=== PATIENT | male | born 1960 | race Caucasian/White ===

== ENCOUNTER 2020-11-05 18:48 | Emergency (ER) | payer OTHER ==
[2020-11-05] MEDS ORDERED: MORPHINE SULFATE 4 MG INJ IV ONE (19:15)
[2020-11-05] MEDS ORDERED: Sodium Chloride 0.9% 1000 ML 1,000 ML IV STA (19:15)
[2020-11-05] MEDS ORDERED: Zofran 4 MG/2 ML VIAL IV ONE (19:15)
[2020-11-05] MEDS ORDERED: Sodium Chloride 0.9% 1000 ML 1,000 ML ONE (19:19)
[2020-11-05] MEDS ORDERED: Zofran 4 MG/2 ML VIAL ONE (19:19)
[2020-11-05] MEDS ORDERED: MORPHINE SULFATE 4 MG INJ ONE (19:19)
--- NOTE | 2020-11-05 19:33 | ERPHSYRPT ---
- History of Present Illness Time Seen by Provider: 11/05/20 19:14 Historian: patient Exam Limitations: no limitations Patient Subjective Stated Complaint: RLQ pain, groin pain Triage Nursing Assessment: pt to ED c/o RLQ pain and R groin pain 06/15. hx hernia sx on 11/02/20. pain persistant since sx and worsening toda. rates 07/15 with coughing fits "heat wave, hot flash during my fits." states he has not had a BM since sx. urinating without issues. denies emesis but occasional nausea with attemping to have BM. surgeon was Dr. Subramanian who is aware he is in ED. pain is most on lateral side of incision. no bleeding or drainage noted. Physician History: 60 years old male with history of tobacco abuse, GERD status post right inguinal hernia repair with mesh postoperative day 2 presented in the ER with gradually worsening pain right inguinal hernia repair site/right lower quadrant. Patient report he has been taking pain medication which seem to be helping earlier but since this afternoon he is having constant severe sharp pain which is aggravated with coughing, deep breathing, movements, associated with nausea but no vomiting. Denies having diarrhea but does not have any bowel movement since hernia repair. No difficulty urination. Denies fever chills or shortness of breath. Patient called her primary surgeon and was recommended to be evaluated in the ER. Denies any drainage or swelling locally. Timing/Duration: day(s) (2), gradual onset, worse Activities at Onset: rest Quality: sharpness Abdominal Pain Onset Location: RLQ, other (Right inguinal area) Pain Radiation: no radiation Severity of Pain-Max: severe Severity of Pain-Current: severe Modifying Factors: Worsens With: coughing, movement, walking Associated Symptoms: nausea, No chest pain, No diaphoresis, No testicular pain, No vomiting Previous symptoms: no prior history Allergies/Adverse Reactions: No Known Drug Allergies Allergy (Unverified 11/05/20 19:01) Home Medications: Atorvastatin Calcium [Lipitor] 20 mg PO DAILY 11/05/20 [History] Bupropion HCl 150 mg Sr [Wellbutrin SR 150 MG] 150 mg PO DAILY 11/05/20 [History] Folic Acid 0.4 mg PO DAILY 11/05/20 [History] Gabapentin 300 mg PO DAILY 11/05/20 [History] Loratadine 10 mg [Claritin 10 mg] 10 mg PO DAILY 11/05/20 [History] Omeprazole Magnesium [Prilosec] 10 mg PO DAILY 11/05/20 [History] Sertraline HCl 50 mg [Zoloft 50 mg Tablet] 50 mg PO DAILY 11/05/20 [History] Tamsulosin HCl 0.4 mg [Flomax 0.4 MG] 0.4 mg PO DAILY 11/05/20 [History] Varenicline Tartrate [Chantix] 1 mg PO DAILY 11/05/20 [History] Hx Tetanus, Diphtheria Vaccination/Date Given: Yes Hx Influenza Vaccination/Date Given: Yes Hx Pneumococcal Vaccination/Date Given: Yes Immunizations Up to Date: Yes Travel Risk - International Travel Have you traveled outside of the country in past 3 weeks: No - Coronavirus Screening Are you exhibiting any of the following symptoms?: No Close contact with a COVID-19 positive Pt in past 14-21 Days: No - Review of Systems Constitutional: No Symptoms Eyes: No Symptoms Ears, Nose, & Throat: Sinus Drainage Respiratory: Cough Cardiac: No Symptoms Abdominal/Gastrointestinal: Abdominal Pain, Nausea, Constipation Genitourinary Symptoms: No Symptoms Musculoskeletal: No Symptoms Skin: No Symptoms Neurological: No Symptoms Psychological: No Symptoms Endocrine: No Symptoms Hematologic/Lymphatic: No Symptoms Immunological/Allergic: No Symptoms - Past Medical History Pertinent Past Medical History: Yes Neurological History: Other Cardiac History: High Cholesterol, Hypertension Respiratory History: No Pertinent History Endocrine Medical History: No Pertinent History Musculoskeletal History: Degenerative Disk Disease Other Medical History: Cluster Headaches, Fx Left Wrist, Hx of surgery for nasal defect, hx ear surgery, 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, - Social History Smoking Status: Current every day smoker How long have you smoked: years Exposure to second hand smoke: No Drug Use: none Patient Lives Alone: No - Nursing Vital Signs Nursing Vital Signs: Initial Vital Signs Temperature 98.5 F 11/05/20 18:53 Pulse Rate 79 11/05/20 18:53 Respiratory Rate 19 11/05/20 18:53 Blood Pressure 170/97 11/05/20 18:53 O2 Sat by Pulse Oximetry 96 11/05/20 18:53 Pain Scale Pain Intensity 1 - Physical Exam General Appearance: no apparent distress, alert Eye Exam: PERRL/EOMI, eyes nml inspection Ears, Nose, Throat Exam: pharyngeal erythema Neck Exam: normal inspection, non-tender, supple, full range of motion Respiratory Exam: normal breath sounds, lungs clear Cardiovascular Exam: regular rate/rhythm, normal heart sounds Gastrointestinal/Abdomen Exam: soft, normal bowel sounds, tenderness (Right lower quadrant/right inguinal area. Incision clean dry and intact. No erythema swelling redness or discharge around incision site. No testicular swelling.) Male Genitalia Exam: No testicular tenderness Back Exam: normal inspection, normal range of motion Extremity Exam: normal inspection, normal range of motion Neurologic Exam: alert, oriented x 3, cooperative Skin Exam: normal color SpO2 Interpretation: normal SpO2: 96 O2 Delivery: Room Air Ordered Tests: Active Orders 24 hr Category Date Time Status IV Insertion STAT Care 11/05/20 19:04 Active NPO (ED) STAT Care 11/05/20 19:15 Active ABDOMEN AND PELVIS W CONTRAST [CT] Stat Exams 11/05/20 19:16 Taken CBC W DIFF Stat Lab 11/05/20 19:15 Completed CMP Stat Lab 11/05/20 19:15 Completed CULTURE,URINE Stat Lab 11/05/20 20:41 Received Lactic Acid Stat Lab 11/05/20 19:20 Completed UA W/RFX UR CULTURE Stat Lab 11/05/20 20:41 Completed Medication Summary Generic Name Dose Route Start Last Admin Trade Name Freq PRN Reason Stop Dose Admin Cephalexin HCl 500 mg 11/05/20 20:57 Keflex 500 Mg PO 11/05/20 20:58 STAT ONE Discontinued Medications Generic Name Dose Route Start Last Admin Trade Name Freq PRN Reason Stop Dose Admin Sodium Chloride 1,000 mls @ 999 mls/hr 11/05/20 19:15 11/05/20 19:22 Sodium Chloride 0.9% 1000 Ml IV 11/05/20 20:15 999 mls/hr .Q1H1M STA Administration Sodium Chloride Confirm 11/05/20 19:19 Sodium Chloride 0.9% 1000 Ml Administered 11/05/20 19:20 Dose 1,000 mls @ ud .ROUTE .STK-MED ONE Morphine Sulfate 4 mg 11/05/20 19:15 11/05/20 19:23 Morphine Sulfate 4 Mg Inj IV 11/05/20 19:16 4 mg STAT ONE Administration Morphine Sulfate Confirm 11/05/20 19:19 Morphine Sulfate 4 Mg Inj Administered 11/05/20 19:20 Dose 4 mg .ROUTE .STK-MED ONE Ondansetron HCl 4 mg 11/05/20 19:15 11/05/20 19:22 Zofran 4 Mg/2 Ml Vial IV 11/05/20 19:16 4 mg STAT ONE Administration Ondansetron HCl Confirm 11/05/20 19:19 Zofran 4 Mg/2 Ml Vial Administered 11/05/20 19:20 Dose 4 mg .ROUTE .STK-MED ONE Lab/Rad Data: Laboratory Result Diagrams 11/05/20 19:15 11/05/20 19:15 Laboratory Results 11/05/20 11/05/20 11/05/20 Range/Units 20:41 19:20 19:15 WBC (4.0-10.5) K/mm3 RBC (4.1-5.6) M/mm3 Hgb (12.5-18.0) gm/dl Hct (42-50) % MCV (78-100) fl MCH (26-32) pg MCHC (32-36) g/dl RDW (11.5-14.0) % Plt Count (150-450) K/mm3 MPV (7.5-11.0) fl Gran % (36.0-66.0) % Eos # (Auto) (0-0.5) Absolute Lymphs (auto) (1.0-4.6) Absolute Monos (auto) (0.0-1.3) Lymphocytes % (24.0-44.0) % Monocytes % (0.0-12.0) % Eosinophils % (0.00-5.0) % Basophils % (0.0-0.4) % Absolute Granulocytes (1.4-6.9) Basophils # (0-0.4) Sodium 133 L (137-145) mmol/L Potassium 4.0 (3.5-5.1) mmol/L Chloride 98 (98-107) mmol/L Carbon Dioxide 25 (22-30) mmol/L Anion Gap 13.8 (5-15) MEQ/L BUN 14 (9-20) mg/dL Creatinine 0.97 (0.66-1.25) mg/dL Estimated GFR > 60.0 ML/MIN Glucose 114 H (74-106) mg/dL Lactic Acid 1.1 (0.4-2.0) Calcium 9.7 (8.4-10.2) mg/dL Total Bilirubin 0.70 (0.2-1.3) mg/dL AST 33 (17-59) U/L ALT 36 (0-50) U/L Alkaline Phosphatase 166 H (38-126) U/L Serum Total Protein 8.0 (6.3-8.2) g/dL Albumin 4.6 (3.5-5.0) g/dL Urine Color YELLOW (YELLOW) Urine Appearance SLIGHTLY CLOUDY (CLEAR) Urine pH 6.0 (5-6) Ur Specific [place] 1.020 (1.005-1.025) Urine Protein NEGATIVE (Negative) Urine Ketones NEGATIVE (NEGATIVE) Urine Blood SMALL (0-5) Ld/ul Urine Nitrite POSITIVE (NEGATIVE) Urine Bilirubin NEGATIVE (NEGATIVE) Urine Urobilinogen NEGATIVE (0-1) mg/dL Ur Leukocyte Esterase NEGATIVE (NEGATIVE) Urine WBC (Auto) 0-2 (0-5) /HPF Urine RBC (Auto) 0-2 (0-2) /HPF U Epithel Cells (Auto) NONE (FEW) /HPF Urine Bacteria (Auto) NONE (NEGATIVE) /HPF Urine Mucus (Auto) SLIGHT (NEGATIVE) /HPF Urine Culture Reflexed YES (NO) Urine Glucose NEGATIVE (NEGATIVE) mg/dL 11/05/20 Range/Units 19:15 WBC 10.9 H (4.0-10.5) K/mm3 RBC 5.05 (4.1-5.6) M/mm3 Hgb 15.7 (12.5-18.0) gm/dl Hct 47.6 (42-50) % MCV 94.3 (78-100) fl MCH 31.1 (26-32) pg MCHC 33.0 (32-36) g/dl RDW 15.3 H (11.5-14.0) % Plt Count 196 (150-450) K/mm3 MPV 11.0 (7.5-11.0) fl Gran % 80.0 H (36.0-66.0) % Eos # (Auto) 0.12 (0-0.5) Absolute Lymphs (auto) 1.19 (1.0-4.6) Absolute Monos (auto) 0.85 (0.0-1.3) Lymphocytes % 10.9 L (24.0-44.0) % Monocytes % 7.8 (0.0-12.0) % Eosinophils % 1.1 (0.00-5.0) % Basophils % 0.2 (0.0-0.4) % Absolute Granulocytes 8.69 H (1.4-6.9) Basophils # 0.02 (0-0.4) Sodium (137-145) mmol/L Potassium (3.5-5.1) mmol/L Chloride (98-107) mmol/L Carbon Dioxide (22-30) mmol/L Anion Gap (5-15) MEQ/L BUN (9-20) mg/dL Creatinine (0.66-1.25) mg/dL Estimated GFR ML/MIN Glucose (74-106) mg/dL Lactic Acid (0.4-2.0) Calcium (8.4-10.2) mg/dL Total Bilirubin (0.2-1.3) mg/dL AST (17-59) U/L ALT (0-50) U/L Alkaline Phosphatase (38-126) U/L Serum Total Protein (6.3-8.2) g/dL Albumin (3.5-5.0) g/dL Urine Color (YELLOW) Urine Appearance (CLEAR) Urine pH (5-6) Ur Specific [place] (1.005-1.025) Urine Protein (Negative) Urine Ketones (NEGATIVE) Urine Blood (0-5) Ld/ul Urine Nitrite (NEGATIVE) Urine Bilirubin (NEGATIVE) Urine Urobilinogen (0-1) mg/dL Ur Leukocyte Esterase (NEGATIVE) Urine WBC (Auto) (0-5) /HPF Urine RBC (Auto) (0-2) /HPF U Epithel Cells (Auto) (FEW) /HPF Urine Bacteria (Auto) (NEGATIVE) /HPF Urine Mucus (Auto) (NEGATIVE) /HPF Urine Culture Reflexed (NO) Urine Glucose (NEGATIVE) mg/dL - Progress Progress: improved, re-examined Progress Note: 11/05/20 20:51 60 years old status post right inguinal hernia repair with mesh postop day 2 is evaluated for worsening pain. Is given IV fluids and pain medication, on reevaluation his pain is better. Patient has good bowel sounds in all 4 quadrants. Patient is passing gas. Acute abdomen work-up shows white count of 10, grossly unremarkable chemistries. I have obtained CT abdomen pelvis with contrast which showed findings consistent with adynamic ileus but no obstruction perforation or any other acute intra-abdominal findings. Patient is taking pain medication which could be the reason for this ileus versus postoperative. He is advised to take pain medications only as needed and take Colace and MiraLAX regularly. Urinalysis does show positive nitrites although patient does not have any symptoms but him being recent postoperative I will start him on Keflex recommended deep breathing exercises to avoid atelectasis related to recent anesthesia. On repeated evaluation abdominal exam is soft nontender with no peritoneal signs. No signs of infection at incision site. Recommended symptomatic treatment for cough and outpatient follow-up with primary care and general surgeon. Discussed signs symptoms of worsening needing return to ER which he seems understanding. 11/05/20 21:00 Counseled pt/family regarding: lab results, diagnosis, need for follow-up, rad results, smoking cessation - Departure Departure Disposition: Home Clinical Impression: Postoperative abdominal pain UTI (urinary tract infection) Qualifiers: Urinary tract infection type: site unspecified Hematuria presence: without hematuria Qualified Code(s): N39.0 - Urinary tract infection, site not specified Condition: Stable Critical Care Time: No Referrals: EDE LOPEZ [ACTIVE STAFF] - (1-2 days for reevaluation) DONY SUBRAMANIAN [ACTIVE STAFF] - (1-2 days for reevaluation) Instructions: Acute Abdomen (Belly Pain), Adult (DC) Additional Instructions: Take pain medications only as needed. Drink plenty of fluids. Take MiraLAX and Colace regularly. Return to ER for worsening abdominal pain/distention/fever chills/swelling redness discharge from incision site etc. Follow-up with primary care and general surgeon for reevaluation early next week. Prescriptions: Cephalexin Mh 500 mg [Keflex 500 mg] 500 mg PO TID #21 capsule
[2020-11-05 19:41] LABS: ALBUMIN 4.6 g/dL (3.5-5.0); ALKALINE PHOSPHATASE 166 U/L (38-126); ANION GAP 13.8 MEQ/L (5-15); BLOOD UREA NITROGEN 14 mg/dL (9-20); CHLORIDE 98 mmol/L (98-107); Calcium 9.7 mg/dL (8.4-10.2); Carbon Dioxide 25 mmol/L (22-30); Creatinine 1 0.97 mg/dL (0.66-1.25); EST GLOMERULAR FILTRATION RATE > 60.0 ML/MIN; Glucose 114 mg/dL (74-106); SGOT/AST 33 U/L (17-59); SGPT/ALT 36 U/L (0-50); SODIUM 133 mmol/L (137-145)
[2020-11-05 19:42] LABS: Absolute Neutrophil Ct (ANC) 8.69 (1.4-6.9); BASOPHIL % 0.2 % (0.0-0.4); Basophil (Absolute #) 0.02 (0-0.4); Eosinophil % 1.1 % (0.00-5.0); Eosinophil (Absolute #) 0.12 (0-0.5); Hematocrit 47.6 % (42-50); Hemoglobin 15.7 gm/dl (12.5-18.0); Lymphocyte (Absolute #) 1.19 (1.0-4.6); Lymphocytes % 10.9 % (24.0-44.0); Mean Cell Volume 94.3 fl (78-100); Mean Corpuscular Hemoglobin 31.1 pg (26-32); Monocyte (Absolute #) 0.85 (0.0-1.3); Monocytes % 7.8 % (0.0-12.0); Platelet Count 196 K/mm3 (150-450); Red Blood Count 5.05 M/mm3 (4.1-5.6); Red Cell Distribution Width 15.3 % (11.5-14.0); White Blood Count 10.9 K/mm3 (4.0-10.5)
[2020-11-05 20:49] LABS: Appearance SLIGHTLY CLOUDY (CLEAR); Bilirubin NEGATIVE (NEGATIVE); Blood SMALL Ery/ul (0-5); Glucose NEGATIVE (NEGATIVE); Ketones NEGATIVE (NEGATIVE); Leukocyte Esterase NEGATIVE (NEGATIVE); Mucus SLIGHT /HPF (NEGATIVE); Nitrite POSITIVE (NEGATIVE); Protein,Urine Dip NEGATIVE (Negative); RBC 0-2 /HPF (0-2); Urobilinogen NEGATIVE mg/dL (0-1); WBC 0-2 /HPF (0-5)
[2020-11-05 20:55] VITALS: O2SAT 96
[2020-11-05] MEDS ORDERED: KEFLEX 500 MG PO ONE (20:57)
[2020-11-05] MEDS ORDERED: KEFLEX 500 MG ONE (21:03)
[2020-11-05 21:10] VITALS: BP 145/80; PULSE 75
--- NOTE | 2020-11-06 08:51 | XRAY ---
Indication: Right lower quadrant pain. Constipation. Status post hernia surgery earlier in the week. Partial left nephrectomy. Multiple contiguous axial images obtained through the abdomen and pelvis using 80 cc Isovue 370 contrast. Comparison: None Lung bases demonstrates minimal dependent atelectasis, lingula subsegmental atelectasis/scarring, and tiny left base calcified granuloma. Heart is not enlarged. Noncontrasted stomach and bowel loops appear nonobstructed. Normal air-filled appendix. Moderate air distended colon throughout with scattered colonic fecal debris possibly postoperative ileus. There is also mild rectal impaction. No free fluid/air. Left mid kidney demonstrates partial nephrectomy and nonobstructing micro-calculus. Remaining liver, gallbladder, pancreas, spleen, adrenal glands, kidneys, ureters, and bladder appear unremarkable. Minimal aortoiliac calcifications. No AAA or pathologic retroperitoneal lymphadenopathy. Osseous structures intact with mild degenerative changes throughout the thoracolumbar spine. Right inguinal area demonstrates postsurgical changes with a few tiny abdominal wall air bubbles. No focal walled off fluid collection/abscess. Impression: 1. Moderate air distended colon with scattered colonic fecal debris possibly postoperative ileus. Also mild rectal impaction. 2. Incidental partial left nephrectomy with nonobstructing micro-calculus and status post right inguinal hernia postoperative changes. Comment: Preliminary interpretation was made by [facility]. No critical discrepancy.
== END 2020-11-05 21:20 | disposition home or self-care (01) ==
LOC: ED 18:48
DX: R10.31 Right lower quadrant pain (principal); R10.30 Lower abdominal pain, unspecified; R05 Cough; R11.0 Nausea; N39.0 Urinary tract infection, site not specified; K59.00 Constipation, unspecified; G89.18 Other acute postprocedural pain; E78.5 Hyperlipidemia, unspecified; I10 Essential (primary) hypertension; Z79.899 Other long term (current) drug therapy; F17.200 Nicotine dependence, unspecified, uncomplicated
CPT/HCPCS: 36000; 36415; 74177; 80053; 81001; 83605; 85025; 87077; 87086; 87186; 96360; 96374; 96375; 99284; J2270; J2405; L0625; A9270-GY

== ENCOUNTER 2023-03-15 09:20 | Emergency (ER) | payer OTHER ==
[2023-03-15 10:42] VITALS: O2SAT 98
[2023-03-15 10:47] LABS: Absolute Neutrophil Ct (ANC) 3.63 x10^3/uL (1.4-6.9); BASOPHIL % 0.8 % (0.0-0.4); Basophil (Absolute #) 0.04 x10^3/uL (0-0.4); Eosinophil % 1.9 % (0.00-5.0); Hematocrit 42.4 % (42-50); Hemoglobin 14.1 g/dL (12.5-18.0); IMMATURE GRAN # 0.01 x10^3u/L (0.00-0.03); IMMATURE GRAN % 0.2 % (0.00-0.4); Lymphocytes % 20.7 % (24.0-44.0); Mean Cell Volume 96.4 fL (78-100); Mean Corpuscular Hgb Concent. 33.3 g/dL (32-36); Mean Platelet Volume 10.8 fL (7.5-11.0); Monocyte (Absolute #) 0.43 x10^3/uL (0.0-1.3); Monocytes % 8.1 % (0.0-12.0); Neutrophil % 68.3 % (36.0-66.0); Platelet Count 137 x10^3/uL (150-450); Red Cell Distribution Width 13.9 % (11.5-14.0); White Blood Count 5.3 x10^3/uL (4.0-10.5)
[2023-03-15 10:55] LABS: Appearance Clear (Clear); Bacteria None Seen /HPF (None Seen); Bilirubin Negative (Negative); Blood Negative (Negative); Epithelial Cells None Seen /HPF (None Seen); Glucose, Urine Negative (Negative); Hyaline Casts NONE SEEN /LPF (0-2); Ketones Negative (Negative); Leukocyte Esterase Negative (Negative); Nitrite Negative (Negative); Ph 6.5 (4.6-8.0); Protein,Urine Dip Negative (Negative); RBC 0-2 /HPF (0-5); Specific Gravity <=1.005 (1.005-1.030); Urobilinogen 0.2 mg/dL (0.2); WBC 0-2 /HPF (0-5)
[2023-03-15 10:57] LABS: ADD URINE CULTURE? NO (NO)
[2023-03-15 11:21] LABS: ALBUMIN 4.4 g/dL (3.5-5.0); ALKALINE PHOSPHATASE 112 U/L (38-126); ANION GAP 12.6 MEQ/L (5-15); BLOOD UREA NITROGEN 11 mg/dL (9-20); CHLORIDE 103 mmol/L (98-107); Calcium 8.6 mg/dL (8.4-10.2); Carbon Dioxide 29 mmol/L (22-30); Creatinine 1 0.83 mg/dL (0.66-1.25); EST GLOMERULAR FILTRATION RATE > 60.0 ML/MIN; Glucose 92 mg/dL (74-106); MAGNESIUM 2.1 mg/dL (1.6-2.3); NT PRO BNPII 156 pg/mL (<300); Potassium 3.7 mmol/L (3.5-5.1); SGOT/AST 27 U/L (17-59); SGPT/ALT 23 U/L (0-50); SODIUM 141 mmol/L (137-145); Total Protein 7.4 g/dL (6.3-8.2)
--- NOTE | 2023-03-15 13:11 | ERPHSYRPT ---
- History of Present Illness Time Seen by Provider: 03/15/23 10:17 Source: patient Exam Limitations: no limitations Patient Subjective Stated Complaint: hypertension, blood pressure was running in the neighborhood of 120/80 a couple of weeks ago and pt stated that it started slowly creeping up and it's 198/93 today Triage Nursing Assessment: Pt broguht self to the ER, hypertensive, denies pain at this time, pulses normal, walked to the room without assistance, no difficulty breathing, skin n/w/d, doesn't apper to be in any distress Physician History: 62 years old male with history of tobacco abuse, hyperlipidemia, GERD, BPH, partial left nephrectomy presented in the ER with chief complaint of elevated blood pressure. Patient reports usually his blood pressure is around 120/80 but for the last couple of weeks he noticed it is gradually creeping up and was 190s prior to arrival. Patient denies any increased salt intake, lifestyle changes, chest pain palpitations, shortness of breath, headache, dizziness/li ghtheadedness/visual disturbance/numbness tingling or focal weakness. Timing/Duration: week(s) (2), gradual onset, worse Severity: moderate Modifying Factors: Improves With: nothing Associated Symptoms: denies symptoms Allergies/Adverse Reactions: No Known Drug Allergies Allergy (Verified 03/15/23 09:48) Home Medications: Atorvastatin Calcium [Lipitor] 40 mg PO DAILY 11/05/20 [History] Folic Acid 1 mg PO DAILY 11/05/20 [History] Gabapentin 200 mg PO TID 11/05/20 [History] Omeprazole Magnesium [Prilosec] 20 mg PO DAILY 11/05/20 [History] Tamsulosin HCl 0.4 mg [Flomax 0.4 MG] 0.4 mg PO DAILY 11/05/20 [History] Calcium Polycarbophil 625 mg [Fibercon 625 mg] 625 mg PO DAILY 03/15/23 [History] Fexofenadine HCl [Sherri Allergy] 180 mg PO DAILY 03/15/23 [History] Lidocaine 1 each TP UD 03/15/23 [History] Loperamide HCl 2 mg [Imodium 2 mg] 2 mg PO DAILY PRN 03/15/23 [History] Meloxicam 15 mg [Meloxicam 15 MG] 15 mg PO DAILY 03/15/23 [History] Methotrexate Sodium 2.5 mg [Trexall 2.5 mg] 15 mg PO WEEKLY 03/15/23 [History] Hx Tetanus, Diphtheria Vaccination/Date Given: Yes Hx Influenza Vaccination/Date Given: Yes Hx Pneumococcal Vaccination/Date Given: Yes Travel Risk - International Travel Have you traveled outside of the country in past 3 weeks: No - Coronavirus Screening Are you exhibiting any of the following symptoms?: No Close contact with a COVID-19 positive Pt in past 14-21 Days: No - Vaccine Status Have you recieved a Covid-19 vaccination: Yes De Icer: Moderna - Vaccination Dates Date of 2cond Vaccination (if applicable): 2020 - Review of Systems Constitutional: No Symptoms Eyes: No Symptoms Ears, Nose, & Throat: No Symptoms Respiratory: No Symptoms Cardiac: No Symptoms Abdominal/Gastrointestinal: No Symptoms Genitourinary Symptoms: No Symptoms Musculoskeletal: No Symptoms Neurological: No Symptoms Psychological: No Symptoms Endocrine: No Symptoms Hematologic/Lymphatic: No Symptoms Immunological/Allergic: No Symptoms - Past Medical History Pertinent Past Medical History: Yes Neurological History: Other Cardiac History: High Cholesterol, Hypertension Respiratory History: No Pertinent History Endocrine Medical History: No Pertinent History Musculoskeletal History: Degenerative Disk Disease Other Medical History: Cluster Headaches, Fx Left Wrist, Hx of surgery for nasal defect, hx ear surgery, 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, - Social History Smoking Status: Current every day smoker How long have you smoked: years Exposure to second hand smoke: Yes Drug Use: none Patient Lives Alone: No - Nursing Vital Signs Nursing Vital Signs: Initial Vital Signs Pulse Rate 47 L 03/15/23 10:00 Respiratory Rate 17 03/15/23 10:00 Blood Pressure 183/85 03/15/23 10:00 O2 Sat by Pulse Oximetry 98 03/15/23 10:00 Pain Scale Pain Intensity 0 - Physical Exam General Appearance: no apparent distress, alert, anxiety Eye Exam: PERRL/EOMI, eyes nml inspection Ears, Nose, Throat Exam: normal ENT inspection, TMs normal, pharynx normal, moist mucous membranes Neck Exam: normal inspection, non-tender, supple, full range of motion Respiratory Exam: normal breath sounds, lungs clear Cardiovascular Exam: normal heart sounds, bradycardia Back Exam: normal inspection, normal range of motion Neurologic Exam: alert, oriented x 3, cooperative, job developer for deaf adults II-XII nml as tested, normal mood/affect, nml cerebellar function, nml station & gait, sensation nml, No motor deficits Skin Exam: normal color SpO2 Interpretation: normal SpO2: 98 O2 Delivery: Room Air - Course EKG Interpreted by Me: RATE ([id number]), Sinus Milo, NORMAL AXIS, NORMAL INTERVALS, NORMAL QRS Ordered Tests: Active Orders 24 hr Category Date Time Status EKG-ER Only STAT Care 03/15/23 10:27 Active IV Insertion STAT Care 03/15/23 10:27 Active CHEST 1 VIEW (PORTABLE) Stat Exams 03/15/23 10:27 Taken CBC W DIFF Stat Lab 03/15/23 10:40 Completed CMP Stat Lab 03/15/23 10:40 Completed MAG [MAGNESIUM] Stat Lab 03/15/23 10:40 Completed NT PRO BNPII Stat Lab 03/15/23 10:40 Completed TROPONIN Q4H Lab 03/15/23 10:40 Completed TROPONIN Q4H Lab 03/15/23 14:30 Ordered TROPONIN Q4H Lab 03/15/23 18:30 Ordered UA W/RFX UR CULTURE Stat Lab 03/15/23 10:41 Completed Lab/Rad Data: Laboratory Result Diagrams 03/15/23 10:40 03/15/23 10:40 Laboratory Results 03/15/23 03/15/23 03/15/23 Range/Units 10:41 10:40 10:40 WBC (4.0-10.5) x10^3/uL RBC (4.1-5.6) x10^6/uL Hgb (12.5-18.0) g/dL Hct (42-50) % MCV (78-100) fL MCH (26-32) pg MCHC (32-36) g/dL RDW (11.5-14.0) % Plt Count (150-450) x10^3/uL MPV (7.5-11.0) fL Gran % (36.0-66.0) % Immature Gran % (Auto) (0.00-0.4) % Nucleat RBC Rel Count (0.00-0.1) % Eos # (Auto) (0-0.5) x10^3/uL Immature Gran # (Auto) (0.00-0.03) x10^3u/L Absolute Lymphs (auto) (1.0-4.6) x10^3/uL Absolute Monos (auto) (0.0-1.3) x10^3/uL Absolute Nucleated RBC (0.00-0.01) x10^3u/L Lymphocytes % (24.0-44.0) % Monocytes % (0.0-12.0) % Eosinophils % (0.00-5.0) % Basophils % (0.0-0.4) % Absolute Granulocytes (1.4-6.9) x10^3/uL Basophils # (0-0.4) x10^3/uL Sodium 141 (137-145) mmol/L Potassium 3.7 (3.5-5.1) mmol/L Chloride 103 (98-107) mmol/L Carbon Dioxide 29 (22-30) mmol/L Anion Gap 12.6 (5-15) MEQ/L BUN 11 (9-20) mg/dL Creatinine 0.83 (0.66-1.25) mg/dL Estimated GFR > 60.0 ML/MIN Glucose 92 (74-106) mg/dL Calcium 8.6 (8.4-10.2) mg/dL Magnesium 2.1 (1.6-2.3) mg/dL Total Bilirubin 0.60 (0.2-1.3) mg/dL AST 27 (17-59) U/L ALT 23 (0-50) U/L Alkaline Phosphatase 112 (38-126) U/L Troponin I < 0.012 (0.000-0.034) ng/mL NT-Pro-B Natriuret Pep 156 (<300) pg/mL Serum Total Protein 7.4 (6.3-8.2) g/dL Albumin 4.4 (3.5-5.0) g/dL Urine Color Yellow (Yellow) Urine Appearance Clear (Clear) Urine pH 6.5 (4.6-8.0) Ur Specific Kirby <=1.005 (1.005-1.030) Urine Protein Negative (Negative) Urine Glucose (UA) Negative (Negative) mg/dL Urine Ketones Negative (Negative) Urine Blood Negative (Negative) Urine Nitrite Negative (Negative) Urine Bilirubin Negative (Negative) Urine Urobilinogen 0.2 (0.2) mg/dL Ur Leukocyte Esterase Negative (Negative) U Hyaline Cast (Auto) NONE SEEN (0-2) /LPF Urine Microscopic RBC 0-2 (0-5) /HPF Urine Microscopic WBC 0-2 (0-5) /HPF Ur Epithelial Cells None Seen (None Seen) /HPF Urine Bacteria None Seen (None Seen) /HPF Urine Culture Reflexed NO (NO) 03/15/23 Range/Units 10:40 WBC 5.3 (4.0-10.5) x10^3/uL RBC 4.40 (4.1-5.6) x10^6/uL Hgb 14.1 (12.5-18.0) g/dL Hct 42.4 (42-50) % MCV 96.4 (78-100) fL MCH 32.0 (26-32) pg MCHC 33.3 (32-36) g/dL RDW 13.9 (11.5-14.0) % Plt Count 137 L (150-450) x10^3/uL MPV 10.8 (7.5-11.0) fL Gran % 68.3 H (36.0-66.0) % Immature Gran % (Auto) 0.2 (0.00-0.4) % Nucleat RBC Rel Count 0.0 (0.00-0.1) % Eos # (Auto) 0.10 (0-0.5) x10^3/uL Immature Gran # (Auto) 0.01 (0.00-0.03) x10^3u/L Absolute Lymphs (auto) 1.10 (1.0-4.6) x10^3/uL Absolute Monos (auto) 0.43 (0.0-1.3) x10^3/uL Absolute Nucleated RBC 0.00 (0.00-0.01) x10^3u/L Lymphocytes % 20.7 L (24.0-44.0) % Monocytes % 8.1 (0.0-12.0) % Eosinophils % 1.9 (0.00-5.0) % Basophils % 0.8 (0.0-0.4) % Absolute Granulocytes 3.63 (1.4-6.9) x10^3/uL Basophils # 0.04 (0-0.4) x10^3/uL Sodium (137-145) mmol/L Potassium (3.5-5.1) mmol/L Chloride (98-107) mmol/L Carbon Dioxide (22-30) mmol/L Anion Gap (5-15) MEQ/L BUN (9-20) mg/dL Creatinine (0.66-1.25) mg/dL Estimated GFR ML/MIN Glucose (74-106) mg/dL Calcium (8.4-10.2) mg/dL Magnesium (1.6-2.3) mg/dL Total Bilirubin (0.2-1.3) mg/dL AST (17-59) U/L ALT (0-50) U/L Alkaline Phosphatase (38-126) U/L Troponin I (0.000-0.034) ng/mL NT-Pro-B Natriuret Pep (<300) pg/mL Serum Total Protein (6.3-8.2) g/dL Albumin (3.5-5.0) g/dL Urine Color (Yellow) Urine Appearance (Clear) Urine pH (4.6-8.0) Ur Specific Kirby (1.005-1.030) Urine Protein (Negative) Urine Glucose (UA) (Negative) mg/dL Urine Ketones (Negative) Urine Blood (Negative) Urine Nitrite (Negative) Urine Bilirubin (Negative) Urine Urobilinogen (0.2) mg/dL Ur Leukocyte Esterase (Negative) U Hyaline Cast (Auto) (0-2) /LPF Urine Microscopic RBC (0-5) /HPF Urine Microscopic WBC (0-5) /HPF Ur Epithelial Cells (None Seen) /HPF Urine Bacteria (None Seen) /HPF Urine Culture Reflexed (NO) - Progress Progress: improved Progress Note: 03/15/23 13:09 62 years old male with history of tobacco abuse, hyperlipidemia, GERD, BPH, partial left nephrectomy presented in the ER with chief complaint of elevated blood pressure. Patient reports usually his blood pressure is around 120/80 but for the last couple of weeks he noticed it is gradually creeping up and was 190s prior to arrival. Patient denies any increased salt intake, lifestyle changes, chest pain palpitations, shortness of breath, headache, dizziness/lightheadedness/visual disturbance/numbness tingling or focal wea kness. She was very anxious on presentation, he is counseled. He has no signs of endorgan injury. EKG showed sinus bradycardia with no acute ischemic changes and negative troponins. Chest x-ray negative for any acute cardiopulmonary findings reviewed by me, official report is pending. Has normal white count, unremarkable chemistries, normal renal functions and no acute findings on urinalysis. Patient blood pressure improved without any medication to 133/70. I would not start him on antihypertensive based on today's reading only, recommended monitoring at home 3-4 times a day, keeping a log and follow-up with primary care. This could be as a result of anxiety that his blood pressure was elevated on presentation. Discussed signs symptoms of worsening with elevated blood pressure needing return to emergency room immediately which she seems understanding. Counseled on low-salt diet, exercise, smoking cessation and outpatient follow-up as well. Counseled pt/family regarding: lab results, diagnosis, need for follow-up, rad results, smoking cessation Medical Desision Making - Diagnostic Testing Diagnostic test were ordered, analyzed, and reviewed by me: Yes Radiological Interpretation: Interpreted by me, Reviewed by me - Departure Departure Disposition: Home Clinical Impression: Elevated blood pressure reading Condition: Stable Critical Care Time: No Referrals: HOSPITAL,'S [Primary Care Provider] - Follow up/PCP as directed (Call in 2 days for appointment for reevaluation) Instructions: Malignant Hypertension (DC), Controlling Your Blood Pressure Through Lifestyle Additional Instructions: Monitor your blood pressure regularly, keep a log and follow-up with your primary care for reevaluation in the next few days. Call for appointment in 2 days. Return to ER for persistent elevated blood pressure or if having headache/dizziness, blurry vision, chest pain/difficulty breathing/palpitations/abdominal pain etc.
[2023-03-15 13:19] VITALS: BP 135/67; PULSE 52
[2023-03-15 14:05] LABS: Slide Review 1 YES
--- NOTE | 2023-03-15 20:14 | XRAY ---
Indication: Elevated blood pressure. Comparison: None Portable chest hyperinflated and clear. Heart and mediastinal structures within normal limits. Bony thorax intact with mild degenerative changes. Impression: Nonacute hyperinflated chest.
== END 2023-03-15 13:30 | disposition home or self-care (01) ==
LOC: ED 09:20
DX: R03.0 Elevated blood-pressure reading, without diagnosis of hypertension (principal); E78.5 Hyperlipidemia, unspecified; Z79.899 Other long term (current) drug therapy; Z72.0 Tobacco use
CPT/HCPCS: 36415; 71045; 80053; 81001; 83735; 83880; 84484; 85025; 93005; 99283

== ENCOUNTER 2023-03-22 08:06 | Inpatient (IN) | payer OTHER, MEDICARE ==
[2023-03-22] MEDS ORDERED: Zofran 4 MG/2 ML VIAL IV ONE (08:18)
[2023-03-22] MEDS ORDERED: Sodium Chloride 0.9% 1000 ML 1,000 ML IV STA (08:18)
[2023-03-22] MEDS ORDERED: Hydromorphone 1 mg/ml Injection IV ONE ×2 (08:18→11:11)
[2023-03-22] MEDS ORDERED: Sodium Chloride 0.9% 1000 ML 1,000 ML ONE (08:24)
[2023-03-22] MEDS ORDERED: Hydromorphone 1 mg/ml Injection ONE ×2 (08:24→11:13)
[2023-03-22] MEDS ORDERED: Zofran 4 MG/2 ML VIAL ONE (08:24)
[2023-03-22 08:33] LABS: Absolute Neutrophil Ct (ANC) 11.01 x10^3/uL (1.4-6.9); BASOPHIL % 0.3 % (0.0-0.4); Basophil (Absolute #) 0.04 x10^3/uL (0-0.4); Eosinophil % 0.5 % (0.00-5.0); Eosinophil (Absolute #) 0.07 x10^3/uL (0-0.5); Hematocrit 43.4 % (42-50); Hemoglobin 14.8 g/dL (12.5-18.0); IMMATURE GRAN # 0.03 x10^3u/L (0.00-0.03); IMMATURE GRAN % 0.2 % (0.00-0.4); Lymphocyte (Absolute #) 1.01 x10^3/uL (1.0-4.6); Lymphocytes % 7.8 % (24.0-44.0); Mean Cell Volume 94.8 fL (78-100); Mean Corpuscular Hemoglobin 32.3 pg (26-32); Mean Corpuscular Hgb Concent. 34.1 g/dL (32-36); Mean Platelet Volume 10.6 fL (7.5-11.0); Monocyte (Absolute #) 0.74 x10^3/uL (0.0-1.3); Monocytes % 5.7 % (0.0-12.0); Neutrophil % 85.5 % (36.0-66.0); Platelet Count 152 x10^3/uL (150-450); Red Blood Count 4.58 x10^6/uL (4.1-5.6); Red Cell Distribution Width 13.7 % (11.5-14.0); White Blood Count 12.9 x10^3/uL (4.0-10.5)
--- NOTE | 2023-03-22 08:33 | ERPHSYRPT ---
- History of Present Illness Time Seen by Provider: 03/22/23 08:30 Historian: patient Exam Limitations: no limitations Patient Subjective Stated Complaint: Pt reports he woke up at approx 0400 this morning with abdominal pain around umbilical area, reports he has vomited approx 2 times today. Had a BM this morning, no abnormalities in stool per pt. Triage Nursing Assessment: Pt alert and oriented x3. No apparent respiratory distress. Wheeled to ED cot by staff, transfered to cot without difficulty. Diaphoretic/pink skin. Abdomen soft/nontender/flat. Active bowel sounds in all four quads. Physician History: Pt reports he woke up at approx 0400 this morning with abdominal pain around umbilical area, reports he has vomited approximately 2 times today. Had a Bowel movement this morning, no abnormalities in stool per pt. Timing/Duration: today Activities at Onset: none Quality: cramping Abdominal Pain Onset Location: periumbilical Severity of Pain-Max: moderate Severity of Pain-Current: severe Modifying Factors: Improves With: nothing Associated Symptoms: loss of appetite, nausea, vomiting, No back, No chest pain, No diarrhea, No fever/chills, No fatigue, No headache, No heartburn, No neck pain, No rash, No shortness of breath, No testicular pain, No weakness Previous symptoms: no prior history Allergies/Adverse Reactions: No Known Drug Allergies Allergy (Verified 03/22/23 08:12) Home Medications: Atorvastatin Calcium [Lipitor] 40 mg PO DAILY 11/05/20 [History] Folic Acid 1 mg PO DAILY 11/05/20 [History] Gabapentin 200 mg PO TID 11/05/20 [History] Omeprazole Magnesium [Prilosec] 20 mg PO DAILY 11/05/20 [History] Tamsulosin HCl 0.4 mg [Flomax 0.4 MG] 0.4 mg PO DAILY 11/05/20 [History] Calcium Polycarbophil 625 mg [Fibercon 625 mg] 625 mg PO DAILY 03/15/23 [History] Fexofenadine HCl [Sherri Allergy] 180 mg PO DAILY 03/15/23 [History] Lidocaine 1 each TP UD 03/15/23 [History] Meloxicam 15 mg [Meloxicam 15 MG] 15 mg PO DAILY 03/15/23 [History] Methotrexate Sodium 2.5 mg [Trexall 2.5 mg] 15 mg PO WEEKLY 03/15/23 [History] Hx Tetanus, Diphtheria Vaccination/Date Given: Yes Hx Influenza Vaccination/Date Given: Yes Hx Pneumococcal Vaccination/Date Given: Yes Travel Risk - International Travel Have you traveled outside of the country in past 3 weeks: No - Coronavirus Screening Are you exhibiting any of the following symptoms?: No Close contact with a COVID-19 positive Pt in past 14-21 Days: No - Vaccine Status Have you recieved a Covid-19 vaccination: Yes Precision L[employer] Generator: Moderna - Vaccination Dates Date of 2cond Vaccination (if applicable): 2020 - Review of Systems Constitutional: No Fever, No Chills Eyes: No Symptoms Ears, Nose, & Throat: No Symptoms Respiratory: No Cough, No Dyspnea Cardiac: No Chest Pain, No Edema, No Syncope Abdominal/Gastrointestinal: Abdominal Pain, No Nausea, No Vomiting, No Diarrhea Genitourinary Symptoms: No Dysuria Musculoskeletal: No Back Pain, No Neck Pain Skin: No Rash Neurological: No Dizziness, No Focal Weakness, No Sensory Changes Psychological: No Symptoms Endocrine: No Symptoms Hematologic/Lymphatic: No Symptoms Immunological/Allergic: No Symptoms All Other Systems: Reviewed and Negative - Past Medical History Pertinent Past Medical History: Yes Neurological History: Other Cardiac History: High Cholesterol, Hypertension Respiratory History: No Pertinent History Endocrine Medical History: No Pertinent History Musculoskeletal History: Degenerative Disk Disease Other Medical History: Cluster Headaches, Fx Left Wrist, Hx of surgery for nasal defect, hx ear surgery, 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, - Social History Smoking Status: Current every day smoker How long have you smoked: years Exposure to second hand smoke: Yes Drug Use: none Patient Lives Alone: No - Nursing Vital Signs Nursing Vital Signs: Initial Vital Signs Temperature 97.8 F 03/22/23 08:12 Pulse Rate 60 03/22/23 08:12 Respiratory Rate 18 03/22/23 08:12 Blood Pressure 152/63 03/22/23 08:12 O2 Sat by Pulse Oximetry 97 03/22/23 08:12 Pain Scale Pain Intensity 9 - Physical Exam General Appearance: no apparent distress, alert Eye Exam: PERRL/EOMI, eyes nml inspection Ears, Nose, Throat Exam: normal ENT inspection, pharynx normal, moist mucous membranes Neck Exam: normal inspection, non-tender, supple, full range of motion Respiratory Exam: normal breath sounds, lungs clear, No respiratory distress Cardiovascular Exam: regular rate/rhythm, normal heart sounds Gastrointestinal/Abdomen Exam: soft, tenderness, guarding, rebound (periumbilical area), No distention, No mass Back Exam: normal inspection, normal range of motion, No CVA tenderness, No vertebral tenderness Extremity Exam: normal inspection, normal range of motion, pelvis stable Neurologic Exam: alert, oriented x 3, cooperative, normal mood/affect, nml cerebellar function, sensation nml, No motor deficits Skin Exam: normal color, warm, dry SpO2: 97 - Course Nursing assessment & vital signs reviewed: Yes - CT Exams Abdomen/Pelvis CT Interpretation: Discussed w/radiologist, Tele-radiologist Report (Impending bowel obstruction) Ordered Tests: Active Orders 24 hr Category Date Time Status EKG-ER Only STAT Care 03/22/23 08:21 Active ABDOMEN AND PELVIS W&WO CONTRA [CT] Stat Exams 03/22/23 08:19 Taken AMYLASE Stat Lab 03/22/23 08:30 Completed CBC W DIFF Stat Lab 03/22/23 08:30 Completed CMP Stat Lab 03/22/23 08:30 Completed LIPASE Stat Lab 03/22/23 08:30 Completed TROPONIN Q4H Lab 03/22/23 08:30 Completed TROPONIN Q4H Lab 03/22/23 12:30 Ordered TROPONIN Q4H Lab 03/22/23 16:30 Ordered UA W/RFX UR CULTURE Stat Lab 03/22/23 09:44 Completed Urine Triage Profile Stat Lab 03/22/23 09:44 Completed Medication Summary Discontinued Medications Generic Name Dose Route Start Last Admin Trade Name Freq PRN Reason Stop Dose Admin Hydromorphone HCl 1 mg 03/22/23 08:18 03/22/23 08:25 Hydromorphone 1 Mg/1ml Inj IV 03/22/23 08:19 1 mg STAT ONE Administration Hydromorphone HCl Confirm 03/22/23 08:24 Hydromorphone 1 Mg/1ml Inj Administered 03/22/23 08:25 Dose 1 mg .ROUTE .STK-MED ONE Hydromorphone HCl 1 mg 03/22/23 11:11 03/22/23 11:15 Hydromorphone 1 Mg/1ml Inj IV 03/22/23 11:12 1 mg STAT ONE Administration Sodium Chloride 1,000 mls @ 999 mls/hr 03/22/23 08:18 03/22/23 09:43 Sodium Chloride 0.9% 1000 Ml IV 03/22/23 09:18 Infused .Q1H1M STA Infusion Sodium Chloride Confirm 03/22/23 08:24 Sodium Chloride 0.9% 1000 Ml Administered 03/22/23 08:25 Dose 1,000 mls @ ud .ROUTE .STK-MED ONE Ceftriaxone Sodium/Dextrose 1 g in 50 mls @ 100 mls/hr 03/22/23 09:15 03/06 04/27 10:52 Rocephin 1 Gm-D5w 50 Ml Bag IV 03/22/23 09:44 100 mls/hr STAT STA 100 mls/hr Administration Ceftriaxone Sodium/Dextrose Confirm 03/22/23 10:44 Rocephin 1 Gm-D5w 50 Ml Bag Administered 03/22/23 10:45 Dose 1 g in 50 mls @ ud IV .STK-MED ONE Ondansetron HCl 4 mg 03/22/23 08:18 03/22/23 08:25 Ondansetron Hcl 4 Mg/2 Ml Vial IV 03/22/23 08:19 4 mg STAT ONE Administration Ondansetron HCl Confirm 03/22/23 08:24 Ondansetron Hcl 4 Mg/2 Ml Vial Administered 03/22/23 08:25 Dose 4 mg .ROUTE .STK-MED ONE Lab/Rad Data: Laboratory Result Diagrams 03/22/23 08:30 03/22/23 08:30 Laboratory Results 03/22/23 03/22/23 03/22/23 Range/Units 09:44 09:44 08:30 WBC (4.0-10.5) x10^3/uL RBC (4.1-5.6) x10^6/uL Hgb (12.5-18.0) g/dL Hct (42-50) % MCV (78-100) fL MCH (26-32) pg MCHC (32-36) g/dL RDW (11.5-14.0) % Plt Count (150-450) x10^3/uL MPV (7.5-11.0) fL Gran % (36.0-66.0) % Immature Gran % (Auto) (0.00-0.4) % Nucleat RBC Rel Count (0.00-0.1) % Eos # (Auto) (0-0.5) x10^3/uL Immature Gran # (Auto) (0.00-0.03) x10^3u/L Absolute Lymphs (auto) (1.0-4.6) x10^3/uL Absolute Monos (auto) (0.0-1.3) x10^3/uL Absolute Nucleated RBC (0.00-0.01) x10^3u/L Lymphocytes % (24.0-44.0) % Monocytes % (0.0-12.0) % Eosinophils % (0.00-5.0) % Basophils % (0.0-0.4) % Absolute Granulocytes (1.4-6.9) x10^3/uL Basophils # (0-0.4) x10^3/uL Sodium (137-145) mmol/L Potassium (3.5-5.1) mmol/L Chloride (98-107) mmol/L Carbon Dioxide (22-30) mmol/L Anion Gap (5-15) MEQ/L BUN (9-20) mg/dL Creatinine (0.66-1.25) mg/dL Estimated GFR ML/MIN Glucose (74-106) mg/dL Calcium (8.4-10.2) mg/dL Total Bilirubin (0.2-1.3) mg/dL AST (17-59) U/L ALT (0-50) U/L Alkaline Phosphatase (38-126) U/L Troponin I < 0.012 (0.000-0.034) ng/mL Serum Total Protein (6.3-8.2) g/dL Albumin (3.5-5.0) g/dL Amylase (30-110) U/L Lipase (23-300) U/L Urine Color Yellow (Yellow) Urine Appearance Clear (Clear) Urine pH 6.5 (4.6-8.0) Ur Specific Bill[place] 1.015 (1.005-1.030) Urine Protein Negative (Negative) Urine Glucose (UA) Negative (Negative) mg/dL Urine Ketones Negative (Negative) Urine Blood Negative (Negative) Urine Nitrite Negative (Negative) Urine Bilirubin Negative (Negative) Urine Urobilinogen 1.0 A (0.2) mg/dL Ur Leukocyte Esterase Negative (Negative) U Hyaline Cast (Auto) NONE SEEN (0-2) /LPF Urine Microscopic RBC 0-2 (0-5) /HPF Urine Microscopic WBC 0-2 (0-5) /HPF Ur Epithelial Cells None Seen (None Seen) /HPF Urine Bacteria None Seen (None Seen) /HPF Urine Culture Reflexed NO (NO) Urine Opiates Level NEGATIVE (NEGATIVE) Ur Methadone NEGATIVE (NEGATIVE) Urine Barbiturates NEGATIVE (NEGATIVE) Ur Phencyclidine (PCP) NEGATIVE (NEGATIVE) Urine Amphetamine NEGATIVE (NEGATIVE) U Benzodiazepine Level NEGATIVE (NEGATIVE) Urine Cocaine NEGATIVE (NEGATIVE) Urine Marijuana (THC) NEGATIVE (NEGATIVE) 03/22/23 03/22/23 Range/Units 08:30 08:30 WBC 12.9 H (4.0-10.5) x10^3/uL RBC 4.58 (4.1-5.6) x10^6/uL Hgb 14.8 (12.5-18.0) g/dL Hct 43.4 (42-50) % MCV 94.8 (78-100) fL MCH 32.3 H (26-32) pg MCHC 34.1 (32-36) g/dL RDW 13.7 (11.5-14.0) % Plt Count 152 (150-450) x10^3/uL MPV 10.6 (7.5-11.0) fL Gran % 85.5 H (36.0-66.0) % Immature Gran % (Auto) 0.2 (0.00-0.4) % Nucleat RBC Rel Count 0.0 (0.00-0.1) % Eos # (Auto) 0.07 (0-0.5) x10^3/uL Immature Gran # (Auto) 0.03 (0.00-0.03) x10^3u/L Absolute Lymphs (auto) 1.01 (1.0-4.6) x10^3/uL Absolute Monos (auto) 0.74 (0.0-1.3) x10^3/uL Absolute Nucleated RBC 0.00 (0.00-0.01) x10^3u/L Lymphocytes % 7.8 L (24.0-44.0) % Monocytes % 5.7 (0.0-12.0) % Eosinophils % 0.5 (0.00-5.0) % Basophils % 0.3 (0.0-0.4) % Absolute Granulocytes 11.01 H (1.4-6.9) x10^3/uL Basophils # 0.04 (0-0.4) x10^3/uL Sodium 138 (137-145) mmol/L Potassium 4.0 (3.5-5.1) mmol/L Chloride 104 (98-107) mmol/L Carbon Dioxide 25 (22-30) mmol/L Anion Gap 14.0 (5-15) MEQ/L BUN 20 (9-20) mg/dL Creatinine 0.89 (0.66-1.25) mg/dL Estimated GFR > 60.0 ML/MIN Glucose 119 H (74-106) mg/dL Calcium 8.8 (8.4-10.2) mg/dL Total Bilirubin 0.60 (0.2-1.3) mg/dL AST 24 (17-59) U/L ALT 22 (0-50) U/L Alkaline Phosphatase 128 H (38-126) U/L Troponin I (0.000-0.034) ng/mL Serum Total Protein 7.2 (6.3-8.2) g/dL Albumin 4.3 (3.5-5.0) g/dL Amylase 71 (30-110) U/L Lipase 106 (23-300) U/L Urine Color (Yellow) Urine Appearance (Clear) Urine pH (4.6-8.0) Ur Specific [place] (1.005-1.030) Urine Protein (Negative) Urine Glucose (UA) (Negative) mg/dL Urine Ketones (Negative) Urine Blood (Negative) Urine Nitrite (Negative) Urine Bilirubin (Negative) Urine Urobilinogen (0.2) mg/dL Ur Leukocyte Esterase (Negative) U Hyaline Cast (Auto) (0-2) /LPF Urine Microscopic RBC (0-5) /HPF Urine Microscopic WBC (0-5) /HPF Ur Epithelial Cells (None Seen) /HPF Urine Bacteria (None Seen) /HPF Urine Culture Reflexed (NO) Urine Opiates Level (NEGATIVE) Ur Methadone (NEGATIVE) Urine Barbiturates (NEGATIVE) Ur Phencyclidine (PCP) (NEGATIVE) Urine Amphetamine (NEGATIVE) U Benzodiazepine Level (NEGATIVE) Urine Cocaine (NEGATIVE) Urine Marijuana (THC) (NEGATIVE) - Progress Progress: unchanged, pain not gone completely Discussed with : Other (hospitalist service) Will see patient in: hospital (observation) Counseled pt/family regarding: lab results, diagnosis, need for follow-up, rad results - Departure Departure Disposition: Observation Clinical Impression: Small bowel obstruction, partial Condition: Fair Critical Care Time: Yes Critical Care Time(excluding separately billable procedures): Critical 30-74 mins Referrals: HOSPITAL,'S [Primary Care Provider] - Follow up/PCP as directed Instructions: Severe Abdominal Pain, Adult (DC)
[2023-03-22 08:46] LABS: ALBUMIN 4.3 g/dL (3.5-5.0); ALKALINE PHOSPHATASE 128 U/L (38-126); AMYLASE 71 U/L (30-110); BLOOD UREA NITROGEN 20 mg/dL (9-20); CHLORIDE 104 mmol/L (98-107); Calcium 8.8 mg/dL (8.4-10.2); Carbon Dioxide 25 mmol/L (22-30); Creatinine 1 0.89 mg/dL (0.66-1.25); EST GLOMERULAR FILTRATION RATE > 60.0 ML/MIN; Glucose 119 mg/dL (74-106); LIPASE 106 U/L (23-300); SGOT/AST 24 U/L (17-59); SGPT/ALT 22 U/L (0-50); SODIUM 138 mmol/L (137-145); Total Protein 7.2 g/dL (6.3-8.2)
[2023-03-22] MEDS ORDERED: ROCEPHIN 1 Gm-D5w 50 ml Bag** 1 G/50 ML IVPB IV STA (09:15)
[2023-03-22 10:34] LABS: Appearance Clear (Clear); Bacteria None Seen /HPF (None Seen); Bilirubin Negative (Negative); Blood Negative (Negative); Epithelial Cells None Seen /HPF (None Seen); Glucose, Urine Negative (Negative); Hyaline Casts NONE SEEN /LPF (0-2); Ketones Negative (Negative); Leukocyte Esterase Negative (Negative); Nitrite Negative (Negative); Ph 6.5 (4.6-8.0); Protein,Urine Dip Negative (Negative); RBC 0-2 /HPF (0-5); Specific Gravity 1.015 (1.005-1.030); WBC 0-2 /HPF (0-5)
[2023-03-22 10:44] LABS: Amphetamine,Urine NEGATIVE (NEGATIVE); Barbiturate,Urine NEGATIVE (NEGATIVE); Benzodiazepine,Urine NEGATIVE (NEGATIVE); Cocaine,Urine NEGATIVE (NEGATIVE); Methadone,Urine NEGATIVE (NEGATIVE); Opiate,Urine NEGATIVE (NEGATIVE); PCP,Urine NEGATIVE (NEGATIVE); THC,Urine NEGATIVE (NEGATIVE)
[2023-03-22] MEDS ORDERED: ROCEPHIN 1 Gm-D5w 50 ml Bag** 1 G/50 ML IVPB IV ONE (10:44)
[2023-03-22 11:00] LABS: ADD URINE CULTURE? NO (NO)
--- NOTE | 2023-03-22 12:51 | XRAY ---
CLINICAL HISTORY:periumbilical abdominal pain COMPARISON:11/05/2020; TECHNIQUES:CT scan of the abdomen and pelvis without and with the intravenous administration contrast material; FINDINGS: Few prominent small bowel loops noted which are fluid filled. These measure up to 2.9 cm in caliber. No definite bowel obstruction or transitional point identified In the current scan. The liver is of average size, displaying regular contour and homogeneous texture. No diffuse parenchymal changes or focal lesions could be detected. Normal hepatic vascular pattern is noted with no evidence of vascular distortion, thrombotic venous occlusion, or compromise of the hepatic biliary drainage. The spleen is of average size with no abnormal focal parenchymal attenuation or brent splenic collection. The right kidney is of average size, shape and parenchymal thickness with no evidence of stones, back pressure changes or space-occupying lesions. The left kidney is malrotated and it shows a focal cortical scarring at the lateral aspect. It harbors a 3 mm non-obstructive stone. No back pressure changes. The other retroperitoneal structures including the pancreas, adrenal glands and great vessels are grossly within normal limits. No significant lymph na enlargement or ascetic fluid collection. The prostate is of average size and shape. Normal filling of the urinary bladder with no stones, masses, or diverticula. Appendix is not separately visualized however no fat stranding or collection noted in the right iliac fossa. Bone window settings showed no evidence of fractures or destructive lesions. Lung window settings showed left basal calcified nodule 5 mm in size likely old granuloma. IMPRESSION: 1. Few prominent small bowel loops noted which are fluid filled, would recommend clinical correlation and follow-up to rule out impending bowel obstruction. No definite bowel obstruction or transitional point identified in the current scan,(new finding When compared with previous scan). 2. Left renal cortical scarring and non-obstructive small stone. [facility] ER was called at [phone] at 09:47 AM EST, 03/22/2023 and results were verbally communicated to the Referring Physician Cal Correa. Electronically Signed by: Michelle Rice MD. (03/22/2023 09:55:02 [employer]INK TRA[employer]ER)
[2023-03-22] MEDS: Sodium Chloride 0.9% 1000 ML 1,000 ML IV SCH ×2 (14:07→21:52)
[2023-03-22] MEDS: Hydromorphone 1 mg/ml Injection IV PRN ×2 (17:17→21:06)
--- NOTE | 2023-03-22 17:24 | PCM.HP ---
History of Present Illness - Chief Complaint Chief Complaint: impending small bowel obstruction Date: 03/22/23 History of Present Illness: is a 62 year old male who presents to the hospital with abdominal pain. At approximately 4am, the patient awoke with right sided periumbilical pain. He initially thought this was gas, so he forced a bowel movement, and this is also the last time he passed flatus. Since then, the patient had persistent pain with nausea and emesis x 2 (nonbilious and nonbloody). He denies any fevers and chills. No diarrhea. Abdominal imaging in the ED was suggestive of a possible early bowel obstruction. He denies any prior history of bowel obstruction. He had right inguinal hernia repair in 2018 and a left partial nephrectomy in April 2015. The patient was seen and examined via telemedicine. The entirety of this encounter was performed via telemedicine. The patient consented to this telemedicine encounter. - Review of Systems Constitutional: No Symptoms Eyes: No Symptoms Ears, Nose, & Throat: No Symptoms Respiratory: No Symptoms Cardiac: No Symptoms Abdominal/Gastrointestinal: Abdominal Pain, Nausea, Vomiting Genitourinary Symptoms: No Symptoms Musculoskeletal: No Symptoms Skin: No Symptoms Neurological: No Symptoms Psychological: No Symptoms Endocrine: No Symptoms Hematologic/Lymphatic: No Symptoms Immunological/Allergic: No Symptoms All Other Systems: Reviewed and Negative Medications & Allergies Home Medications: Home Medication List Atorvastatin Calcium [Lipitor] 40 mg PO HS 11/05/20 [History Confirmed 03/22/23] Folic Acid 1 mg PO HS 11/05/20 [History Confirmed 03/22/23] Omeprazole Magnesium [Prilosec] 20 mg PO DAILY 11/05/20 [History Confirmed 03/22/23] Tamsulosin HCl 0.4 mg [Flomax 0.4 MG] 0.8 mg PO HS 11/05/20 [History Confirmed 03/22/23] Calcium Polycarbophil 625 mg [Fibercon 625 mg] 625 mg PO DAILY 03/15/23 [History Confirmed 03/22/23] Fexofenadine HCl [Sherri Allergy] 180 mg PO DAILY 03/15/23 [History Confirmed 03/22/23] Lidocaine 1 each TP DAILY PRN PRN 03/15/23 [History Confirmed 03/22/23] Meloxicam 15 mg [Meloxicam 15 MG] 15 mg PO DAILY 03/15/23 [History Confirmed 03/22/23] Methotrexate Sodium 2.5 mg [Trexall 2.5 mg] 15 mg PO WEEKLY 03/15/23 [History Confirmed 03/22/23] Gabapentin [Neurontin ] 300 mg PO BID 03/22/23 [History Confirmed 03/22/23] Loperamide HCl 2 mg [Imodium 2 mg] 2 mg PO DAILY PRN PRN 03/22/23 [History Confirmed 03/22/23] Sertraline HCl 50 mg [Zoloft 50 mg Tablet] 50 mg PO DAILY 03/22/23 [History Confirmed 03/22/23] buPROPion HCL [Wellbutrin Xl] 300 mg PO QAM 03/22/23 [History Confirmed 03/22/23] Allergies/Adverse Reactions: Allergies Allergy/AdvReac Type Severity Reaction Status Date / Time No Known Drug Allergies Allergy Verified 03/22/23 08:12 - Past Medical History Past Medical History: Yes Neurological History: Other Cardiac History: High Cholesterol, Hypertension Respiratory History: No Pertinent History Endocrine Medical History: No Pertinent History Musculoskelatal History: Degenerative Disk Disease History: Kidney Cancer Pyscho-Social History: Anxiety, Depression Male Reproductive Disorders: Prostate Problems Comment: Cluster Headaches, Fx Left Wrist, Hx of surgery for nasal defect, hx ear surgery, 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, - Past Surgical History Past Surgical History: Yes Cardiac History: No Pertinent History Musculskeletal Surgical Hx: Orthopedic Surgery Other Surgical History: Fx Left Wrist, Hx of surgery for nasal defect, hx ear surgery, throat surgery,. 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, - Social History Smoking Status: Current every day smoker How long have you smoked: 45 years Exposure to second hand smoke: Yes Alcohol: Occasionally Drug Use: none - Physical Exam Vital Signs: Vital Signs - 24 hr Temp Pulse Resp BP BP Pulse Ox 03/22/23 16:00 97.2 F 55 L 18 175/77 98 03/22/23 14:46 97.8 F 51 L 12 151/69 97 03/22/23 13:00 51 L 12 145/63 97 03/22/23 12:30 49 L 13 139/56 97 03/22/23 12:15 97 03/22/23 12:00 49 L 12 142/56 97 03/22/23 11:30 49 L 14 153/63 97 03/22/23 11:00 53 L 18 178/91 100 03/22/23 10:32 63 18 149/61 100 03/22/23 10:30 60 17 149/61 97 03/22/23 10:00 58 L 18 143/65 99 03/22/23 09:31 52 L 12 111/80 99 03/22/23 09:01 149/78 03/22/23 08:54 52 L 16 151/69 97 03/22/23 08:30 58 L 16 151/69 93 L 03/22/23 08:12 97.8 F 60 18 152/63 97 General Appearance: no apparent distress, alert Neurologic Exam: alert, oriented x 3, 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, 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, normal mood/affect, nml cerebellar function Eye Exam: PERRL/EOMI, eyes nml inspection Ears, Nose, Throat Exam: normal ENT inspection Neck Exam: normal inspection, non-tender, supple, full range of motion Respiratory Exam: normal breath sounds, lungs clear Cardiovascular Exam: regular rate/rhythm, normal heart sounds Gastrointestinal/Abdomen Exam: soft, tenderness (tenderness in right lower vinay drant with mild guarding but no rigidity or peritoneal signs), other (decreased bowel sounds) Back Exam: normal range of motion Extremity Exam: normal inspection, normal range of motion Skin Exam: normal color Results - Labs Lab/Micro Results: Lab Results-Last 24 Hours 03/22/23 03/22/23 03/22/23 Range/Units 08:30 08:30 08:30 WBC 12.9 H (4.0-10.5) x10^3/uL RBC 4.58 (4.1-5.6) x10^6/uL Hgb 14.8 (12.5-18.0) g/dL Hct 43.4 (42-50) % MCV 94.8 (78-100) fL MCH 32.3 H (26-32) pg MCHC 34.1 (32-36) g/dL RDW 13.7 (11.5-14.0) % Plt Count 152 (150-450) x10^3/uL MPV 10.6 (7.5-11.0) fL Gran % 85.5 H (36.0-66.0) % Immature Gran % (Auto) 0.2 (0.00-0.4) % Nucleat RBC Rel Count 0.0 (0.00-0.1) % Eos # (Auto) 0.07 (0-0.5) x10^3/uL Immature Gran # (Auto) 0.03 (0.00-0.03) x10^3u/L Absolute Lymphs (auto) 1.01 (1.0-4.6) x10^3/uL Absolute Monos (auto) 0.74 (0.0-1.3) x10^3/uL Absolute Nucleated RBC 0.00 (0.00-0.01) x10^3u/L Lymphocytes % 7.8 L (24.0-44.0) % Monocytes % 5.7 (0.0-12.0) % Eosinophils % 0.5 (0.00-5.0) % Basophils % 0.3 (0.0-0.4) % Absolute Granulocytes 11.01 H (1.4-6.9) x10^3/uL Basophils # 0.04 (0-0.4) x10^3/uL Sodium 138 (137-145) mmol/L Potassium 4.0 (3.5-5.1) mmol/L Chloride 104 (98-107) mmol/L Carbon Dioxide 25 (22-30) mmol/L Anion Gap 14.0 (5-15) MEQ/L BUN 20 (9-20) mg/dL Creatinine 0.89 (0.66-1.25) mg/dL Estimated GFR > 60.0 ML/MIN Glucose 119 H (74-106) mg/dL Calcium 8.8 (8.4-10.2) mg/dL Total Bilirubin 0.60 (0.2-1.3) mg/dL AST 24 (17-59) U/L ALT 22 (0-50) U/L Alkaline Phosphatase 128 H (38-126) U/L Troponin I < 0.012 (0.000-0.034) ng/mL Serum Total Protein 7.2 (6.3-8.2) g/dL Albumin 4.3 (3.5-5.0) g/dL Amylase 71 (30-110) U/L Lipase 106 (23-300) U/L Urine Color (Yellow) Urine Appearance (Clear) Urine pH (4.6-8.0) Ur Specific Verdi (1.005-1.030) Urine Protein (Negative) Urine Glucose (UA) (Negative) mg/dL Urine Ketones (Negative) Urine Blood (Negative) Urine Nitrite (Negative) Urine Bilirubin (Negative) Urine Urobilinogen (0.2) mg/dL Ur Leukocyte Esterase (Negative) U Hyaline Cast (Auto) (0-2) /LPF Urine Microscopic RBC (0-5) /HPF Urine Microscopic WBC (0-5) /HPF Ur Epithelial Cells (None Seen) /HPF Urine Bacteria (None Seen) /HPF Urine Culture Reflexed (NO) Urine Opiates Level (NEGATIVE) Ur Methadone (NEGATIVE) Urine Barbiturates (NEGATIVE) Ur Phencyclidine (PCP) (NEGATIVE) Urine Amphetamine (NEGATIVE) U Benzodiazepine Level (NEGATIVE) Urine Cocaine (NEGATIVE) Urine Marijuana (THC) (NEGATIVE) 03/22/23 03/22/23 03/22/23 Range/Units 09:44 09:44 12:04 WBC (4.0-10.5) x10^3/uL RBC (4.1-5.6) x10^6/uL Hgb (12.5-18.0) g/dL Hct (42-50) % MCV (78-100) fL MCH (26-32) pg MCHC (32-36) g/dL RDW (11.5-14.0) % Plt Count (150-450) x10^3/uL MPV (7.5-11.0) fL Gran % (36.0-66.0) % Immature Gran % (Auto) (0.00-0.4) % Nucleat RBC Rel Count (0.00-0.1) % Eos # (Auto) (0-0.5) x10^3/uL Immature Gran # (Auto) (0.00-0.03) x10^3u/L Absolute Lymphs (auto) (1.0-4.6) x10^3/uL Absolute Monos (auto) (0.0-1.3) x10^3/uL Absolute Nucleated RBC (0.00-0.01) x10^3u/L Lymphocytes % (24.0-44.0) % Monocytes % (0.0-12.0) % Eosinophils % (0.00-5.0) % Basophils % (0.0-0.4) % Absolute Granulocytes (1.4-6.9) x10^3/uL Basophils # (0-0.4) x10^3/uL Sodium (137-145) mmol/L Potassium (3.5-5.1) mmol/L Chloride (98-107) mmol/L Carbon Dioxide (22-30) mmol/L Anion Gap (5-15) MEQ/L BUN (9-20) mg/dL Creatinine (0.66-1.25) mg/dL Estimated GFR ML/MIN Glucose (74-106) mg/dL Calcium (8.4-10.2) mg/dL Total Bilirubin (0.2-1.3) mg/dL AST (17-59) U/L ALT (0-50) U/L Alkaline Phosphatase (38-126) U/L Troponin I < 0.012 (0.000-0.034) ng/mL Serum Total Protein (6.3-8.2) g/dL Albumin (3.5-5.0) g/dL Amylase (30-110) U/L Lipase (23-300) U/L Urine Color Yellow (Yellow) Urine Appearance Clear (Clear) Urine pH 6.5 (4.6-8.0) Ur Specific Verdi 1.015 (1.005-1.030) Urine Protein Negative (Negative) Urine Glucose (UA) Negative (Negative) mg/dL Urine Ketones Negative (Negative) Urine Blood Negative (Negative) Urine Nitrite Negative (Negative) Urine Bilirubin Negative (Negative) Urine Urobilinogen 1.0 A (0.2) mg/dL Ur Leukocyte Esterase Negative (Negative) U Hyaline Cast (Auto) NONE SEEN (0-2) /LPF Urine Microscopic RBC 0-2 (0-5) /HPF Urine Microscopic WBC 0-2 (0-5) /HPF Ur Epithelial Cells None Seen (None Seen) /HPF Urine Bacteria None Seen (None Seen) /HPF Urine Culture Reflexed NO (NO) Urine Opiates Level NEGATIVE (NEGATIVE) Ur Methadone NEGATIVE (NEGATIVE) Urine Barbiturates NEGATIVE (NEGATIVE) Ur Phencyclidine (PCP) NEGATIVE (NEGATIVE) Urine Amphetamine NEGATIVE (NEGATIVE) U Benzodiazepine Level NEGATIVE (NEGATIVE) Urine Cocaine NEGATIVE (NEGATIVE) Urine Marijuana (THC) NEGATIVE (NEGATIVE) 03/22/23 Range/Units 16:14 WBC (4.0-10.5) x10^3/uL RBC (4.1-5.6) x10^6/uL Hgb (12.5-18.0) g/dL Hct (42-50) % MCV (78-100) fL MCH (26-32) pg MCHC (32-36) g/dL RDW (11.5-14.0) % Plt Count (150-450) x10^3/uL MPV (7.5-11.0) fL Gran % (36.0-66.0) % Immature Gran % (Auto) (0.00-0.4) % Nucleat RBC Rel Count (0.00-0.1) % Eos # (Auto) (0-0.5) x10^3/uL Immature Gran # (Auto) (0.00-0.03) x10^3u/L Absolute Lymphs (auto) (1.0-4.6) x10^3/uL Absolute Monos (auto) (0.0-1.3) x10^3/uL Absolute Nucleated RBC (0.00-0.01) x10^3u/L Lymphocytes % (24.0-44.0) % Monocytes % (0.0-12.0) % Eosinophils % (0.00-5.0) % Basophils % (0.0-0.4) % Absolute Granulocytes (1.4-6.9) x10^3/uL Basophils # (0-0.4) x10^3/uL Sodium (137-145) mmol/L Potassium (3.5-5.1) mmol/L Chloride (98-107) mmol/L Carbon Dioxide (22-30) mmol/L Anion Gap (5-15) MEQ/L BUN (9-20) mg/dL Creatinine (0.66-1.25) mg/dL Estimated GFR ML/MIN Glucose (74-106) mg/dL Calcium (8.4-10.2) mg/dL Total Bilirubin (0.2-1.3) mg/dL AST (17-59) U/L ALT (0-50) U/L Alkaline Phosphatase (38-126) U/L Troponin I < 0.012 (0.000-0.034) ng/mL Serum Total Protein (6.3-8.2) g/dL Albumin (3.5-5.0) g/dL Amylase (30-110) U/L Lipase (23-300) U/L Urine Color (Yellow) Urine Appearance (Clear) Urine pH (4.6-8.0) Ur Specific Verdi (1.005-1.030) Urine Protein (Negative) Urine Glucose (UA) (Negative) mg/dL Urine Ketones (Negative) Urine Blood (Negative) Urine Nitrite (Negative) Urine Bilirubin (Negative) Urine Urobilinogen (0.2) mg/dL Ur Leukocyte Esterase (Negative) U Hyaline Cast (Auto) (0-2) /LPF Urine Microscopic RBC (0-5) /HPF Urine Microscopic WBC (0-5) /HPF Ur Epithelial Cells (None Seen) /HPF Urine Bacteria (None Seen) /HPF Urine Culture Reflexed (NO) Urine Opiates Level (NEGATIVE) Ur Methadone (NEGATIVE) Urine Barbiturates (NEGATIVE) Ur Phencyclidine (PCP) (NEGATIVE) Urine Amphetamine (NEGATIVE) U Benzodiazepine Level (NEGATIVE) Urine Cocaine (NEGATIVE) Urine Marijuana (THC) (NEGATIVE) - Radiology Impressions Radiology Exams & Impressions: Radiology Procedures Category Date Time Status ABDOMEN AND PELVIS W&WO CONTRA [CT] Stat Exams 03/22/23 08:19 Completed KUB Routine Exams 03/23/23 07:00 Ordered Assessment/Plan (1) Small bowel obstruction, partial Current Visit: Yes Status: Acute Assessment & Plan: Dr. Mccall in ED called Dr. Delacruz with a recommendation for bowel rest. IV fluids, NPO except meds, judicious use of prn analgesia. Monitor exam, symptoms, and will obtain AM KUB. Code(s): K56.600 - PARTIAL INTESTINAL OBSTRUCTION, UNSPECIFIED TO CAUSE (2) Nausea & vomiting Current Visit: Yes Status: Acute Assessment & Plan: Antiemetics prn Code(s): R11.2 - NAUSEA WITH VOMITING, UNSPECIFIED (3) Leukocytosis Current Visit: Yes Status: Acute Assessment & Plan: No obvious source of infection. Received IV Rocephin empirically in ED but can consider discontinuation. Code(s): D72.829 - ELEVATED WHITE BLOOD CELL COUNT, UNSPECIFIED Telemedicine Encounter - Telemedicine Encounter Telemedicine Encounter: The entirety of this encounter was performed via Telemedicine"
[2023-03-22] MEDS ORDERED: Dulcolax 10 MG SUPP PR PRN (17:42)
[2023-03-22] MEDS ORDERED: Lidoderm Patch 5% TOP PRN (18:01)
[2023-03-22] MEDS: FLAGYL 500 MG IVPB 500 MG/100 ML BAG IV SCH (18:55)
[2023-03-22] MEDS: ZOCOR 20MG PO SCH (21:49)
[2023-03-22] MEDS: Flomax 0.4 MG PO SCH (21:50)
[2023-03-22] MEDS: NEURONTIN PO SCH (21:50)
[2023-03-22] MEDS: FOLATE 1 MG PO SCH (21:50)
[2023-03-23] MEDS: Hydromorphone 1 mg/ml Injection IV PRN ×6 (00:44→23:59)
[2023-03-23] MEDS: Zofran 4 MG/2 ML VIAL IV PRN (00:49)
[2023-03-23] MEDS: FLAGYL 500 MG IVPB 500 MG/100 ML BAG IV SCH ×3 (02:24→19:05)
[2023-03-23] MEDS: PROTONIX 40 MG IV IV SCH ×3 (02:47→22:07)
[2023-03-23 06:13] LABS: Absolute Neutrophil Ct (ANC) 7.46 x10^3/uL (1.4-6.9); BASOPHIL % 0.4 % (0.0-0.4); Basophil (Absolute #) 0.04 x10^3/uL (0-0.4); Eosinophil % 0.5 % (0.00-5.0); Eosinophil (Absolute #) 0.05 x10^3/uL (0-0.5); Hematocrit 43.1 % (42-50); Hemoglobin 14.6 g/dL (12.5-18.0); IMMATURE GRAN # 0.02 x10^3u/L (0.00-0.03); IMMATURE GRAN % 0.2 % (0.00-0.4); Lymphocyte (Absolute #) 1.01 x10^3/uL (1.0-4.6); Lymphocytes % 11.1 % (24.0-44.0); Mean Cell Volume 96.6 fL (78-100); Mean Corpuscular Hemoglobin 32.7 pg (26-32); Mean Corpuscular Hgb Concent. 33.9 g/dL (32-36); Mean Platelet Volume 11.5 fL (7.5-11.0); Monocyte (Absolute #) 0.55 x10^3/uL (0.0-1.3); Neutrophil % 81.8 % (36.0-66.0); Platelet Count 154 x10^3/uL (150-450); Red Blood Count 4.46 x10^6/uL (4.1-5.6); Red Cell Distribution Width 14.1 % (11.5-14.0); White Blood Count 9.1 x10^3/uL (4.0-10.5)
[2023-03-23 06:32] LABS: ANION GAP 13.6 MEQ/L (5-15); BLOOD UREA NITROGEN 13 mg/dL (9-20); CHLORIDE 104 mmol/L (98-107); Calcium 8.3 mg/dL (8.4-10.2); Carbon Dioxide 24 mmol/L (22-30); Creatinine 1 0.87 mg/dL (0.66-1.25); EST GLOMERULAR FILTRATION RATE > 60.0 ML/MIN; Glucose 100 mg/dL (74-106); Potassium 4.5 mmol/L (3.5-5.1); SODIUM 138 mmol/L (137-145)
--- NOTE | 2023-03-23 08:05 | XRAY ---
CLINICAL HISTORY:Early bowel obstruction. COMPARISON:CT dated 03/22/2023 was reviewed. TECHNIQUES:X-ray of abdomen showing 1 view: AP supine view. FINDINGS: IMPRESSION: Electronically Signed by: Michelle Rice MD. (03/23/2023 07:02:28 DIP TANKER)
[2023-03-23] MEDS ORDERED: IMODIUM 2 MG PO PRN (08:26)
[2023-03-23] MEDS: Sodium Chloride 0.9% 1000 ML 1,000 ML IV SCH ×2 (08:57→21:55)
[2023-03-23] MEDS ORDERED: NON-FORMULARY ITEM (Bupropion Hcl [Wellbutrin Xl] 300 MG Tab.Er.24h) PO SCH (10:00)
[2023-03-23] MEDS ORDERED: OMEPRAZOLE MAGNESIUM 10 MG PO SCH (10:00)
[2023-03-23] MEDS ORDERED: NON-FORMULARY ITEM (Fexofenadine Hcl [Allegra Allergy] 180 MG Tablet) PO SCH (10:00)
[2023-03-23] MEDS ORDERED: MELOXICAM PO SCH (10:00)
[2023-03-23] MEDS ORDERED: FIBERCON 625 MG PO SCH (10:00)
[2023-03-23] MEDS ORDERED: NON-FORMULARY ITEM (Meloxicam 15 Mg [Meloxicam 15 Mg] 15 MG Tablet) PO SCH (10:00)
[2023-03-23] MEDS: Wellbutrin XL 150 MG PO SCH (12:00)
[2023-03-23] MEDS: NEURONTIN PO SCH ×2 (12:00→22:06)
[2023-03-23] MEDS: ZOLOFT 50 MG TABLET PO SCH (12:10)
[2023-03-23] MEDS: CLARITIN 10 MG PO SCH (12:10)
--- NOTE | 2023-03-23 12:18 | PCM.NOTE ---
Date and Time: 03/23/23 1211 Subjective Assessment: Still experiencing persistent RLW/right periumbilical pain, with no passing of flatus. The patient was seen and examined via telemedicine. The entirety of this encounter was performed via telemedicine. The patient consented to this telemedicine encounter. 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, normal mood/affect, nml cerebellar function Skin Exam: normal color Eye Exam: PERRL, EOMI, eyes nml inspection Ears, Nose, Throat Exam: normal ENT inspection Neck Exam: normal inspection, non-tender, supple, full range of motion Respiratory Exam: normal breath sounds, lungs clear Cardiovascular Exam: regular rate/rhythm, normal heart sounds Gastrointestinal/Abdomen Exam: tenderness, other (mild guarding in right lower quadrant but no peritoneal signs or rigidity) Extremity Exam: normal inspection, normal range of motion Back Exam: normal range of motion OBJECTIVE DATA Vital Signs: Vital Signs - 24 hr Temp Pulse Resp BP BP Pulse Ox 03/23/23 07:07 97.2 F 57 L 18 153/76 95 03/23/23 04:28 97.0 F 54 L 18 149/77 95 03/23/23 04:00 97.4 F 52 L 18 158/78 97 03/22/23 23:39 97.4 F 52 L 18 158/78 97 03/22/23 20:00 97.6 F 54 L 20 144/68 94 L 03/22/23 16:00 97.2 F 55 L 18 175/77 98 03/22/23 14:46 97.2 F 55 L 18 151/69 98 03/22/23 13:00 51 L 12 145/63 97 03/22/23 12:30 49 L 13 139/56 97 03/22/23 12:15 97 Pain Assessment - Last Documented Pain Intensity 6 Pain Scale Used 0-10 Pain Scale Intake and Output: Intake & Output 06/16/03/22/23 03/23/23 03/24/23 11:59 11:59 11:59 11:59 Intake Total 1540 Balance 1540 Weight 72.575 kg 71.7 kg Lab Results: Lab Results-Last 24 Hours 03/22/23 03/22/23 03/23/23 Range/Units 12:04 16:14 05:35 WBC 9.1 (4.0-10.5) x10^3/uL RBC 4.46 (4.1-5.6) x10^6/uL Hgb 14.6 (12.5-18.0) g/dL Hct 43.1 (42-50) % MCV 96.6 (78-100) fL MCH 32.7 H (26-32) pg MCHC 33.9 (32-36) g/dL RDW 14.1 H (11.5-14.0) % Plt Count 154 (150-450) x10^3/uL MPV 11.5 H (7.5-11.0) fL Gran % 81.8 H (36.0-66.0) % Immature Gran % (Auto) 0.2 (0.00-0.4) % Nucleat RBC Rel Count 0.0 (0.00-0.1) % Eos # (Auto) 0.05 (0-0.5) x10^3/uL Immature Gran # (Auto) 0.02 (0.00-0.03) x10^3u/L Absolute Lymphs (auto) 1.01 (1.0-4.6) x10^3/uL Absolute Monos (auto) 0.55 (0.0-1.3) x10^3/uL Absolute Nucleated RBC 0.00 (0.00-0.01) x10^3u/L Lymphocytes % 11.1 L (24.0-44.0) % Monocytes % 6.0 (0.0-12.0) % Eosinophils % 0.5 (0.00-5.0) % Basophils % 0.4 (0.0-0.4) % Absolute Granulocytes 7.46 H (1.4-6.9) x10^3/uL Basophils # 0.04 (0-0.4) x10^3/uL Sodium (137-145) mmol/L Potassium (3.5-5.1) mmol/L Chloride (98-107) mmol/L Carbon Dioxide (22-30) mmol/L Anion Gap (5-15) MEQ/L BUN (9-20) mg/dL Creatinine (0.66-1.25) mg/dL Estimated GFR ML/MIN Glucose (74-106) mg/dL Calcium (8.4-10.2) mg/dL Troponin I < 0.012 < 0.012 (0.000-0.034) ng/mL 03/23/23 Range/Units 05:35 WBC (4.0-10.5) x10^3/uL RBC (4.1-5.6) x10^6/uL Hgb (12.5-18.0) g/dL Hct (42-50) % MCV (78-100) fL MCH (26-32) pg MCHC (32-36) g/dL RDW (11.5-14.0) % Plt Count (150-450) x10^3/uL MPV (7.5-11.0) fL Gran % (36.0-66.0) % Immature Gran % (Auto) (0.00-0.4) % Nucleat RBC Rel Count (0.00-0.1) % Eos # (Auto) (0-0.5) x10^3/uL Immature Gran # (Auto) (0.00-0.03) x10^3u/L Absolute Lymphs (auto) (1.0-4.6) x10^3/uL Absolute Monos (auto) (0.0-1.3) x10^3/uL Absolute Nucleated RBC (0.00-0.01) x10^3u/L Lymphocytes % (24.0-44.0) % Monocytes % (0.0-12.0) % Eosinophils % (0.00-5.0) % Basophils % (0.0-0.4) % Absolute Granulocytes (1.4-6.9) x10^3/uL Basophils # (0-0.4) x10^3/uL Sodium 138 (137-145) mmol/L Potassium 4.5 (3.5-5.1) mmol/L Chloride 104 (98-107) mmol/L Carbon Dioxide 24 (22-30) mmol/L Anion Gap 13.6 (5-15) MEQ/L BUN 13 (9-20) mg/dL Creatinine 0.87 (0.66-1.25) mg/dL Estimated GFR > 60.0 ML/MIN Glucose 100 (74-106) mg/dL Calcium 8.3 L (8.4-10.2) mg/dL Troponin I (0.000-0.034) ng/mL Radiology Exams: Radiology Procedures Category Date Time Status ABDOMEN AND PELVIS W&WO CONTRA [CT] Stat Exams 03/22/23 08:19 Completed KUB Routine Exams 03/23/23 07:00 Completed KUB Routine Exams 03/24/23 07:00 Ordered Assessment/Plan (1) Small bowel obstruction, partial Current Visit: Yes Status: Acute Assessment & Plan: Possible ileus. Dr. Delacruz following case. KUB suggests progressive dilation. On Flagyl per surgery recommendations. Defer to surgery regarding initiation of NG tube decompression. Increase IV fluids rate. Code(s): K56.600 - PARTIAL INTESTINAL OBSTRUCTION, UNSPECIFIED TO CAUSE (2) Nausea & vomiting Current Visit: Yes Status: Acute Assessment & Plan: Antiemetics prn Code(s): R11.2 - NAUSEA WITH VOMITING, UNSPECIFIED (3) Leukocytosis Current Visit: Yes Status: Acute Assessment & Plan: Monitor counts Code(s): D72.829 - ELEVATED WHITE BLOOD CELL COUNT, UNSPECIFIED
[2023-03-23] MEDS: ROCEPHIN 1 Gm-D5w 50 ml Bag** 1 G/50 ML IVPB IV SCH (13:15)
[2023-03-23] MEDS ORDERED: PHARMACY DOSING REQUEST MC ONE (13:38)
[2023-03-23] MEDS: Reglan 10 MG/2 ML IV SCH ×2 (16:11→22:07)
[2023-03-23] MEDS: FOLATE 1 MG PO SCH (22:06)
[2023-03-23] MEDS: ZOCOR 20MG PO SCH (22:06)
[2023-03-23] MEDS: Flomax 0.4 MG PO SCH (22:07)
[2023-03-24] MEDS: FLAGYL 500 MG IVPB 500 MG/100 ML BAG IV SCH ×4 (03:09→19:50)
[2023-03-24] MEDS: Sodium Chloride 0.9% 1000 ML 1,000 ML IV SCH ×3 (04:35→19:50)
[2023-03-24] MEDS: Hydromorphone 1 mg/ml Injection IV PRN ×3 (04:37→12:43)
[2023-03-24 05:48] LABS: ANION GAP 12.1 MEQ/L (5-15); BLOOD UREA NITROGEN 16 mg/dL (9-20); CHLORIDE 102 mmol/L (98-107); Calcium 8.5 mg/dL (8.4-10.2); Carbon Dioxide 25 mmol/L (22-30); EST GLOMERULAR FILTRATION RATE > 60.0 ML/MIN; Glucose 86 mg/dL (74-106); Potassium 4.2 mmol/L (3.5-5.1); SODIUM 135 mmol/L (137-145)
[2023-03-24] MEDS: Reglan 10 MG/2 ML IV SCH ×4 (08:41→21:33)
[2023-03-24] MEDS: PROTONIX 40 MG IV IV SCH ×2 (10:20→21:33)
[2023-03-24] MEDS: ROCEPHIN 1 Gm-D5w 50 ml Bag** 1 G/50 ML IVPB IV SCH (10:21)
[2023-03-24] MEDS: Zofran 4 MG/2 ML VIAL IV PRN (11:56)
[2023-03-24] MEDS: ZOLOFT 50 MG TABLET PO SCH (12:53)
[2023-03-24] MEDS: Wellbutrin XL 150 MG PO SCH (12:53)
[2023-03-24] MEDS: CLARITIN 10 MG PO SCH (12:54)
[2023-03-24] MEDS: NEURONTIN PO SCH ×2 (12:54→21:37)
--- NOTE | 2023-03-24 13:53 | CONS ---
CONSULT DATE: 03/22/2023 HISTORY: A 62-year-old gentleman with multiple medical problems. Apparently he had some peanuts earlier. He had some cramping pain mid abdomen at 4 o'clock this morning. He vomited a couple of times. He did have a bowel movement this morning and was passing some flatus. He did have some cramping apparently. PAST MEDICAL HISTORY: Arthritis, hyperlipidemia, reflux, hypertension, degenerative disc disease, cluster headaches, stage 1 kidney cancer. PAST SURGICAL HISTORY: Open partial nephrectomy at the [facility] in April 2015. He had surgery on his nose, ear surgery in the past. Fracture left wrist in the past. Colonoscopy years ago which was okay, according to the patient. HOME MEDICATIONS: Atorvastatin, bupropion, calcium polycarbophil, fexofenadine, folic acid, gabapentin, lidocaine, loperamide, meloxicam, Trexall, omeprazole, tamsulosin, Sertraline, ALLERGIES: NKDA. FAMILY HISTORY: Negative in regards to this problem. SOCIAL HISTORY: Smoker. Occasional alcohol use. REVIEW OF SYSTEMS: Fourteen systems reviewed. No chest pain or palpitations other systems negative or noncontributory as above and per preadmission questionnaire. PHYSICAL EXAMINATION: VITAL SIGNS: Afebrile. Blood pressure 152/63, pulse 60. . GENERAL: No acute distress. HEENT: Sclera nonicteric. EOMI. Oral mucous membranes moist. NECK: No JVD. CHEST: Equal excursion, nonlabored breathing. CVS: Regular rate and rhythm. ABDOMEN: Very soft. No peritoneal signs. Some minimal tenderness, mild distention. EXTREMITIES: No cyanosis or edema. NEURO: Alert, moving extremities grossly symmetrically. PSYCH: Appropriate mood and affect. SKIN: Dry. LAB DATA AND TESTS: His CT film and labs were reviewed. White count 12, hemoglobin 14.8, PLT 152,000. Lipase normal. Liver function test unremarkable. IMPRESSION: I personally reviewed the CT scan. He does have some fluid filled small bowel loops. There is some stool in the colon, definite transition area. The radiologist felt this was an ileus or enterocolitis or other diverticular episode since he was eating some nuts recently. Rule out other issues or partial obstruction. Either way there is no definite transition point. He is nontoxic. Vitals are stable. He needs a trial of bowel rest, IV hydration. He has nausea right now. No vomiting right now. No NG was placed by the emergency room. If he develops worsening nausea or vomiting, he will need NG decompression. Otherwise he needs to increase his activity, continue bowel rest, IV hydration. I will call and check on him tomorrow and if he is still here will re-evaluate him on Friday. Again, no emergent surgery necessary at this time. No interventions at this time. Continue bowel rest. Conservative management. I would add Flagyl if it is really enteritis or ileus secondary to some early diverticular disease as he had some diverticulosis in the past. He had a little leukocytosis. He is continue on ceftriaxone ordered by Dr. Mccall. Otherwise continue medical management of his chronic pain, arthritis, hyperlipidemia, anxiety and depression.
[2023-03-24] MEDS ORDERED: Lactated Ringers 1,000 ML IV ONE ×2 (14:37→15:36)
[2023-03-24] MEDS ORDERED: OFIRMEV 100 ML IV ONE (14:46)
[2023-03-24] MEDS ORDERED: Zemuron 100 MG/10 ML ONE (14:46)
[2023-03-24] MEDS ORDERED: Magnesium Sulfate 1 GM/2 ML VIAL ONE (14:46)
[2023-03-24] MEDS ORDERED: Decadron 4 MG INJ ONE ×2 (14:46→15:46)
[2023-03-24] MEDS ORDERED: BRIDION 200MG/2ML IV ONE (14:46)
[2023-03-24] MEDS ORDERED: Zofran 4 MG/2 ML VIAL ONE (14:46)
[2023-03-24] MEDS ORDERED: DIPRIVAN 200 MG/20 ML IV ONE (14:46)
[2023-03-24] MEDS ORDERED: TORAdol 30 mg Injection ONE (14:46)
[2023-03-24] MEDS ORDERED: Xylocaine-Mpf 2% 5 Ml Vial ONE (14:46)
[2023-03-24] MEDS ORDERED: SUBLIMAZE 100 MCG/2 ML ONE (14:47)
[2023-03-24] MEDS ORDERED: Ketamine HCl 50 MG/ML ONE (14:49)
[2023-03-24] MEDS ORDERED: Versed 2 MG/2 ML Injection ONE (14:49)
--- NOTE | 2023-03-24 14:49 | XRAY ---
Indication: Abdomen pain. Small bowel obstruction. Preliminary medicaid eligibility specialist abdomen demonstrates mild air distended small bowel loops throughout with paucity colonic bowel gas favoring small bowel obstruction. Patient drank diluted Gastrografin mixed with water totaling 180 cc. Multiple overhead radiographs obtained using portable technique. First image obtained at 20 minutes demonstrates contrast in the stomach and descending duodenum. After 60 minutes, there is little antegrade movement into the proximal jejunum. There is little to no antegrade movement after 3 hours. Examination terminated. Impression: Abnormal preliminary medicaid eligibility specialist abdomen and abnormal small bowel follow-through exam. Findings favor distal small bowel obstruction.
[2023-03-24] MEDS ORDERED: MEFOXIN 2 GM PREMIX** 2 GM/50 ML ML IV ONE (15:18)
[2023-03-24] MEDS ORDERED: Marcaine 0.5%/Epinephrine 10 ML ONE (15:46)
[2023-03-24] MEDS ORDERED: DEXMEDETOMIDINE 80 MCG/20ML-NS IV ONE (15:46)
[2023-03-24] MEDS ORDERED: APRESOLINE 20 MG/ML INJ ONE (16:51)
[2023-03-24 17:36] LABS: Appearance Clear (Clear); Bilirubin Negative (Negative); Blood Small (Negative); Glucose, Urine Negative (Negative); Ketones 40 (Negative); Leukocyte Esterase Trace (Negative); Nitrite Negative (Negative); Ph 5.5 (4.6-8.0); Protein,Urine Dip Trace (Negative); Urobilinogen 0.2 mg/dL (0.2)
[2023-03-24 17:37] LABS: Bacteria None Seen /HPF (None Seen); Epithelial Cells Rare /HPF (None Seen); Hyaline Casts NONE SEEN /LPF (0-2); RBC 0-2 /HPF (0-5)
[2023-03-24] MEDS ORDERED: NORCO 5/325 MG PO PRN (19:36)
[2023-03-24] MEDS: Flomax 0.4 MG PO SCH (21:37)
[2023-03-24] MEDS: ZOCOR 20MG PO SCH (21:37)
[2023-03-24] MEDS: FOLATE 1 MG PO SCH (21:37)
[2023-03-24 21:47] LABS: Hematocrit 42.3 % (42-50); Hemoglobin 14.3 g/dL (12.5-18.0); Mean Cell Volume 95.9 fL (78-100); Mean Corpuscular Hemoglobin 32.4 pg (26-32); Mean Corpuscular Hgb Concent. 33.8 g/dL (32-36); Mean Platelet Volume 10.9 fL (7.5-11.0); Platelet Count 132 x10^3/uL (150-450); Red Blood Count 4.41 x10^6/uL (4.1-5.6); Red Cell Distribution Width 13.5 % (11.5-14.0); White Blood Count 12.5 x10^3/uL (4.0-10.5)
--- NOTE | 2023-03-25 00:25 | PCM.NOTE ---
Date and Time: 03/24/23 1740 Subjective Assessment: No acute events overnight. Had small BM early yesterday, but none overnight or today, nor flatus. Still feels significant pain. Objective Exam General Appearance: mild distress Neurologic Exam: alert, oriented x 3 Respiratory Exam: normal breath sounds, lungs clear, No respiratory distress Cardiovascular Exam: regular rate/rhythm, normal heart sounds, No murmur Gastrointestinal/Abdomen Exam: tenderness, distention, guarding OBJECTIVE DATA Vital Signs: Vital Signs - 24 hr Temp Pulse Resp BP Pulse Ox 03/25/23 00:00 98.9 F 77 16 160/77 96 03/24/23 19:31 100 03/24/23 19:00 97.9 F 67 16 154/72 100 03/24/23 18:30 65 17 137/67 96 03/24/23 18:07 69 17 147/75 90 L 03/24/23 18:01 85 L 03/24/23 17:30 67 15 134/65 85 L 03/24/23 14:42 97.9 F 79 16 142/65 90 L 03/24/23 12:00 97.9 F 79 16 142/65 90 L 03/24/23 07:10 97.9 F 79 16 142/65 90 L 03/24/23 04:51 97.2 F 67 20 139/65 96 03/24/23 04:00 98.7 F 64 18 169/81 98 Pain Assessment - Last Documented Pain Intensity 1 Pain Scale Used 0-10 Pain Scale Intake and Output: Intake & Output 03/22/23 03/23/23 03/24/23 03/25/23 11:59 11:59 11:59 11:59 Intake Total 1540 2804 0 Output Total 400 Balance 1540 2404 0 Weight 72.575 kg 71.7 kg 71.7 kg Lab Results: Lab Results-Last 24 Hours 03/24/23 03/24/23 03/24/23 Range/Units 04:20 16:34 21:40 WBC 12.5 H (4.0-10.5) x10^3/uL RBC 4.41 (4.1-5.6) x10^6/uL Hgb 14.3 (12.5-18.0) g/dL Hct 42.3 (42-50) % MCV 95.9 (78-100) fL MCH 32.4 H (26-32) pg MCHC 33.8 (32-36) g/dL RDW 13.5 (11.5-14.0) % Plt Count 132 L (150-450) x10^3/uL MPV 10.9 (7.5-11.0) fL Sodium 135 L (137-145) mmol/L Potassium 4.2 (3.5-5.1) mmol/L Chloride 102 (98-107) mmol/L Carbon Dioxide 25 (22-30) mmol/L Anion Gap 12.1 (5-15) MEQ/L BUN 16 (9-20) mg/dL Creatinine 0.90 (0.66-1.25) mg/dL Estimated GFR > 60.0 ML/MIN Glucose 86 (74-106) mg/dL Calcium 8.5 (8.4-10.2) mg/dL Urine Color Yellow (Yellow) Urine Appearance Clear (Clear) Urine pH 5.5 (4.6-8.0) Ur Specific [place] 1.020 (1.005-1.030) Urine Protein Trace A (Negative) Urine Glucose (UA) Negative (Negative) mg/dL Urine Ketones 40 A (Negative) Urine Blood Small A (Negative) Urine Nitrite Negative (Negative) Urine Bilirubin Negative (Negative) Urine Urobilinogen 0.2 (0.2) mg/dL Ur Leukocyte Esterase Trace A (Negative) U Hyaline Cast (Auto) NONE SEEN (0-2) /LPF Urine Microscopic RBC 0-2 (0-5) /HPF Urine Microscopic WBC 3-5 (0-5) /HPF Ur Epithelial Cells Rare (None Seen) /HPF Urine Bacteria None Seen (None Seen) /HPF Radiology Exams: Radiology Procedures Category Date Time Status KUB Routine Exams 03/23/23 07:00 Completed SMALL BOWEL SERIES Urgent Exams 03/24/23 14:34 Completed Small bowel follow through: Impression: 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 Findings favor distal small bowel obstruction. Assessment/Plan (1) Small bowel obstruction, partial Current Visit: Yes Status: Acute Assessment & Plan: 62 y/o with h/o HTN, OA, and headaches, here with SBO. ## Small bowel obstruction - no improvement in symptoms. Small bowel follow through study today consistent with SBO. - plan for OR today with Dr. Delacruz - continue Rocephin/Flagyl - PRN Dilaudid 1 mg q4h - continue NS at 125 ml/hr - PRN Zofran 4 ## Depression - continuehome Wellbutrin 300 daily, sertraline 50 daily ## BPH - continue home Flomax 0.4 ## Neuropathy - continue home gabapentin Code Status: Full code PPx: SCDs Diet: NPO Entirety of encounter took place via telemedicine, to which patient consente.d Note, date of service 03/24/23 Code(s): K56.600 - PARTIAL INTESTINAL OBSTRUCTION, UNSPECIFIED TO CAUSE
[2023-03-25] MEDS: FLAGYL 500 MG IVPB 500 MG/100 ML BAG IV SCH ×3 (01:20→17:19)
[2023-03-25] MEDS: Sodium Chloride 0.9% 1000 ML 1,000 ML IV SCH ×3 (04:00→20:46)
[2023-03-25] MEDS: Hydromorphone 1 mg/ml Injection IV PRN ×3 (04:07→21:45)
[2023-03-25 05:08] LABS: Hemoglobin 13.9 g/dL (12.5-18.0); Mean Cell Volume 95.1 fL (78-100); Mean Corpuscular Hemoglobin 32.3 pg (26-32); Mean Corpuscular Hgb Concent. 33.9 g/dL (32-36); Mean Platelet Volume 11.6 fL (7.5-11.0); Platelet Count 148 x10^3/uL (150-450); Red Blood Count 4.31 x10^6/uL (4.1-5.6); Red Cell Distribution Width 13.5 % (11.5-14.0); White Blood Count 13.6 x10^3/uL (4.0-10.5)
[2023-03-25 05:15] LABS: ANION GAP 11.3 MEQ/L (5-15); BLOOD UREA NITROGEN 17 mg/dL (9-20); CHLORIDE 103 mmol/L (98-107); Calcium 8.2 mg/dL (8.4-10.2); Carbon Dioxide 25 mmol/L (22-30); EST GLOMERULAR FILTRATION RATE > 60.0 ML/MIN; Glucose 127 mg/dL (74-106); Potassium 4.4 mmol/L (3.5-5.1); SODIUM 134 mmol/L (137-145)
[2023-03-25] MEDS: Reglan 10 MG/2 ML IV SCH ×4 (08:25→21:18)
[2023-03-25] MEDS ORDERED: Morphine PCA 1 MG/ML IV PRN (08:31)
[2023-03-25] MEDS ORDERED: PHARMACY DOSING REQUIRED: MORPHINE PCA MC ONE (08:45)
--- NOTE | 2023-03-25 09:29 | PROG NOTE ---
DATE: 03/24/2023 HISTORY: A 62-year-old gentleman had some vague crampy abdominal pain. He had some gas and liquid in his small bowel. He said he had not had a prior intra-abdominal operation before. There was question if he had an ileus because it started after eating some food. He had been tried for some bowel rest. He had a small amount of flatus and small stool ball pass but he still had distension, still having cramping. It is felt he would benefit from small bowel follow through and this was ordered earlier this morning but unfortunately they did not start the test until 10. I am waiting on some films. He still has quite distended small bowel loops and Gastrografin does not seem to be significantly passing through. He is still cramping. His abdomen is soft but distended, still having cramping. I feel he warrants exploration with exploratory laparotomy and possible bowel resection, less likely ostomy. He understands the risk of general anesthetic, midline incision, dissection carried down to evaluate where the scar had been or whether segment of bowel that needs resected small bowel likely could consider reanastomosis. Otherwise less likely jejunostomy remotely possible. General risk of bleeding or infection, risk of wound complication, hernia or dehiscence, risk of adhesion, scar formation or obstruction down the road. Risk if bowel resection accomplished risk of anastomotic complication, abscess formation possibly requiring other procedures or prolonged bowel rest. General risk of anesthesia, deep vein thrombosis, pulmonary embolism or pneumonia. Risk of cardiopulmonary event but not limited to. Consent is obtained. Will proceed when OR time is available. He agrees to the planned procedure. Plan for exploratory laparotomy, possible bowel resection, less likely ostomy but remotely possible.
--- NOTE | 2023-03-25 10:41 | OP ---
SURGERY DATE/TIME: 03/24/2023 3538 PREOPERATIVE DIAGNOSIS: Persistent partial small bowel obstruction, failed conservative management trial. POSTOPERATIVE DIAGNOSES: 1) Persistent partial small bowel obstruction with questionable segment of small bowel mesentery felt in need of reection. 2) Appendicolith in need of appendectomy. PROCEDURES: 1) Exploratory laparotomy with segmental small bowel resection with primary reanastomosis. 2) Open appendectomy. SURGEON: Dr. Jasbir Delacruz. ANESTHESIA: General. ESTIMATED BLOOD LOSS: Minimal. INDICATIONS: As noted above. Risks and benefits explained in detail and not limited to and consent obtained. He failed conservative management. Risks and benefits have been explained but not limited to. DESCRIPTION OF PROCEDURE AND FINDINGS: The patient is taken to the operating room. General anesthesia introduced. Abdomen prepped and draped in usual sterile fashion. NG placed palpated in good position. Once it was in position, midline laparotomy incision had been made after official time out. Dissection carried down through the linea alba. He had some distended fluid filled loops of small bowel. There was an internal hernia in the deep lateral lower abdomen this was able to be lysed. The distal small bowel was decompressed. Once it was released although the bowel was not frankly blackened the mesentery looked very concerning for possible delayed complications. I felt the risk of anastomosis would be much less than the risk of mesentery complications as there is already a perforation. It was felt safer to go ahead and resect this small segment that seemed to be distal jejunum. A window was created and the mesentery is taken down and ligated with aid of LigaSure device. The distal viable small bowel transected with GIN stapler. Prior to transecting the proximal limb, the bowel was opened on side basin off the edge of the table. A large amount of food particles and what appeared to be portions of peanuts (the patient had reportedly been eating some peanuts) basically peanut-like structures had been packed full of this in the small bowel just upstream from the internal hernia. It took some time but gently allowing this to flow into the basin off the table and decompressing the bowel gently to allow for closure of the abdomen. Once this was accomplished, again the viable proximal segments transected with GIN stapler. [id number] anastomosis created with posterior row with 3-0 pop-off PDS. [id number] stapled and the anastomosis created and closed with TA stapler and over sewn for hemostasis with 2-0 PDS. 2-0 PDS was used to close the mesenteric defect. The new anastomosis is widely patent, tension free and viable. The liver appeared to be smooth on palpation. The NG was in good position. The stomach had been quite distended but had been drained. NG tube appeared to be in appropriate position. The colon seemed to be unremarkable. The fluid in the abdomen had been clear serous fluid. The appendix was visualized and had at least a couple of appendicoliths in it. It was felt his risk of appendicitis as he has already done a bowel anastomosis was high in the future, and the benefit of leaving the appendix alone. Therefore a window was created at the base of the appendix and mesoappendix taken down, divided and ligated with LigaSure device. The GIN stapler fired across the base of the appendix at the cecum. The appendix is passed off for pathology. Again, he had hardened stool ball what seemed to be an appendicolith. The remainder of the small bowel up to the ligament of Treitz was unremarkable. The anastomosis is widely patent and tension free. The omentum was laid over the top across the viscera isolating it away from the midline incision. RUSTAM drain placed in the pelvis out the lateral incision secured with PDS suture and placed to bulb suction. At this point copious amount of irrigation irrigating clear. All sponge, needle and instrument counts were correct x2. Fascia is closed with running looped 0 PDS. Clean gloves, clean clothes and instruments were used. Subcu irrigated out. 3-0 Vicryl placed to the suture once again. The skin was loosely stapled. Packing placed in the area to be advanced out over the next few days. He tolerated the procedure well. There is no family here to discuss the findings with.
[2023-03-25] MEDS: CLARITIN 10 MG PO SCH (11:08)
[2023-03-25] MEDS: PROTONIX 40 MG IV IV SCH ×2 (11:09→21:18)
[2023-03-25] MEDS: NEURONTIN PO SCH ×2 (11:13→21:19)
[2023-03-25] MEDS: Wellbutrin XL 150 MG PO SCH (11:24)
[2023-03-25] MEDS: ZOLOFT 50 MG TABLET PO SCH (11:24)
[2023-03-25] MEDS: ROCEPHIN 1 Gm-D5w 50 ml Bag** 1 G/50 ML IVPB IV SCH (12:04)
[2023-03-25] MEDS: ENOXAPARIN SODIUM SQ SCH (12:07)
--- NOTE | 2023-03-25 13:39 | PCM.NOTE ---
Date and Time: 03/25/23 1334 Subjective Assessment: Yesterday went to OR for SBO; reportedy has partial small bowel resection and appendectomy, although pending formal operative report. Patient feels better today; still has some pain, but decreased from prior. No flatus yet since surgery. No drainage from incision site. Denies fevers, chills, or nausea. - Review of Systems Constitutional: No Fever, No Chills, No Malaise Respiratory: No Symptoms Cardiac: No Symptoms Abdominal/Gastrointestinal: Abdominal Pain, No Nausea, No Vomiting Skin: No Symptoms Neurological: No Symptoms Psychological: No Symptoms Objective Exam General Appearance: no apparent distress Neurologic Exam: alert, oriented x 3, normal mood/affect Skin Exam: other (midline incision dressing c/d/i. RLQ RUSTAM drain with trace serosanguinous output) Respiratory Exam: normal breath sounds, lungs clear, No accessory muscle use Cardiovascular Exam: regular rate/rhythm, normal heart sounds Gastrointestinal/Abdomen Exam: soft, tenderness OBJECTIVE DATA Vital Signs: Vital Signs - 24 hr Temp Pulse Resp BP Pulse Ox 03/25/23 11:44 98.0 F 67 17 184/87 98 03/25/23 08:44 96 03/25/23 07:46 96 03/25/23 07:11 98.9 F 73 18 162/83 96 03/25/23 04:00 98.0 F 71 16 187/84 95 03/25/23 00:00 98.9 F 77 16 160/77 96 03/24/23 19:31 100 03/24/23 19:00 97.9 F 67 16 154/72 100 03/24/23 18:30 65 17 137/67 96 03/24/23 18:07 69 17 147/75 90 L 03/24/23 18:01 85 L 03/24/23 17:30 67 15 134/65 85 L 03/24/23 14:42 97.9 F 79 16 142/65 90 L Pain Assessment - Last Documented Pain Intensity 4 Pain Scale Used 0-10 Pain Scale Intake and Output: Intake & Output 03/23/23 03/24/23 03/25/23 03/26/23 11:59 11:59 11:59 11:59 Intake Total 1540 2804 0 0 Output Total 400 1270 Balance 1540 2404 -1270 0 Weight 71.7 kg 71.7 kg Lab Results: Lab Results-Last 24 Hours 03/24/23 03/24/23 03/25/23 Range/Units 16:34 21:40 04:28 WBC 12.5 H (4.0-10.5) x10^3/uL RBC 4.41 (4.1-5.6) x10^6/uL Hgb 14.3 (12.5-18.0) g/dL Hct 42.3 (42-50) % MCV 95.9 (78-100) fL MCH 32.4 H (26-32) pg MCHC 33.8 (32-36) g/dL RDW 13.5 (11.5-14.0) % Plt Count 132 L (150-450) x10^3/uL MPV 10.9 (7.5-11.0) fL Sodium 134 L (137-145) mmol/L Potassium 4.4 (3.5-5.1) mmol/L Chloride 103 (98-107) mmol/L Carbon Dioxide 25 (22-30) mmol/L Anion Gap 11.3 (5-15) MEQ/L BUN 17 (9-20) mg/dL Creatinine 0.80 (0.66-1.25) mg/dL Estimated GFR > 60.0 ML/MIN Glucose 127 H (74-106) mg/dL Calcium 8.2 L (8.4-10.2) mg/dL Urine Color Yellow (Yellow) Urine Appearance Clear (Clear) Urine pH 5.5 (4.6-8.0) Ur Specific [place] 1.020 (1.005-1.030) Urine Protein Trace A (Negative) Urine Glucose (UA) Negative (Negative) mg/dL Urine Ketones 40 A (Negative) Urine Blood Small A (Negative) Urine Nitrite Negative (Negative) Urine Bilirubin Negative (Negative) Urine Urobilinogen 0.2 (0.2) mg/dL Ur Leukocyte Esterase Trace A (Negative) U Hyaline Cast (Auto) NONE SEEN (0-2) /LPF Urine Microscopic RBC 0-2 (0-5) /HPF Urine Microscopic WBC 3-5 (0-5) /HPF Ur Epithelial Cells Rare (None Seen) /HPF Urine Bacteria None Seen (None Seen) /HPF 03/25/23 Range/Units 04:28 WBC 13.6 H (4.0-10.5) x10^3/uL RBC 4.31 (4.1-5.6) x10^6/uL Hgb 13.9 (12.5-18.0) g/dL Hct 41.0 L (42-50) % MCV 95.1 (78-100) fL MCH 32.3 H (26-32) pg MCHC 33.9 (32-36) g/dL RDW 13.5 (11.5-14.0) % Plt Count 148 L (150-450) x10^3/uL MPV 11.6 H (7.5-11.0) fL Sodium (137-145) mmol/L Potassium (3.5-5.1) mmol/L Chloride (98-107) mmol/L Carbon Dioxide (22-30) mmol/L Anion Gap (5-15) MEQ/L BUN (9-20) mg/dL Creatinine (0.66-1.25) mg/dL Estimated GFR ML/MIN Glucose (74-106) mg/dL Calcium (8.4-10.2) mg/dL Urine Color (Yellow) Urine Appearance (Clear) Urine pH (4.6-8.0) Ur Specific [place] (1.005-1.030) Urine Protein (Negative) Urine Glucose (UA) (Negative) mg/dL Urine Ketones (Negative) Urine Blood (Negative) Urine Nitrite (Negative) Urine Bilirubin (Negative) Urine Urobilinogen (0.2) mg/dL Ur Leukocyte Esterase (Negative) U Hyaline Cast (Auto) (0-2) /LPF Urine Microscopic RBC (0-5) /HPF Urine Microscopic WBC (0-5) /HPF Ur Epithelial Cells (None Seen) /HPF Urine Bacteria (None Seen) /HPF Radiology Exams: Radiology Procedures Category Date Time Status SMALL BOWEL SERIES Urgent Exams 03/24/23 14:34 Completed Multi-Disciplinary Progress Notes: Multi-Disciplinary Progress Notes 03/25/23 10:07 Case Management Note by Klaudia Garcia PATIENT POST OP DAY 1- AMBULATING WELL, NORMALLY INDEPENDENT. DO NOT ANTICIPATE ANY NEW NEEDS AT DC, WILL ENCOURAGE HHC IF NEEDED CLOSER TO TIME OF DC Initialized on 03/25/23 10:07 - END OF NOTE Assessment/Plan (1) Small bowel obstruction, partial Current Visit: Yes Status: Acute Assessment & Plan: 62 y/o with h/o HTN, OA, and headaches, here with SBO. ## Small bowel obstruction - S/p partial SB resection on 03/24 (POD 1). Pain improved. - continue NPO until flatus or cleared by surgery Dr. Delacruz - continue Rocephin/Flagyl - PRN Dilaudid 1 mg q4h - continue NS at 125 ml/hr - PRN Zofran 4 ## Depression - - continue home Wellbutrin 300 daily, sertraline 50 daily ## BPH - continue home Flomax 0.4 ## Neuropathy - continue home gabapentin Code Status: Full code PPx: SCDs Diet: NPO Entirety of encounter took place via telemedicine, to which patient consented. Code(s): K56.600 - PARTIAL INTESTINAL OBSTRUCTION, UNSPECIFIED TO CAUSE
[2023-03-25] MEDS: Zestril 10 MG PO SCH (15:21)
[2023-03-25] MEDS: Flomax 0.4 MG PO SCH (21:18)
[2023-03-25] MEDS: FOLATE 1 MG PO SCH (21:19)
[2023-03-25] MEDS: ZOCOR 20MG PO SCH (21:19)
[2023-03-26] MEDS ORDERED: APRESOLINE 20 MG/ML INJ IV PRN (00:56)
[2023-03-26] MEDS: FLAGYL 500 MG IVPB 500 MG/100 ML BAG IV SCH ×3 (01:07→17:53)
[2023-03-26] MEDS: Hydromorphone 1 mg/ml Injection IV PRN ×6 (02:09→23:03)
[2023-03-26] MEDS: Sodium Chloride 0.9% 1000 ML 1,000 ML IV SCH ×3 (04:52→21:45)
[2023-03-26 05:22] LABS: Hematocrit 41.6 % (42-50); Hemoglobin 13.9 g/dL (12.5-18.0); Mean Cell Volume 95.6 fL (78-100); Mean Corpuscular Hgb Concent. 33.4 g/dL (32-36); Platelet Count 136 x10^3/uL (150-450); Red Blood Count 4.35 x10^6/uL (4.1-5.6); Red Cell Distribution Width 13.8 % (11.5-14.0); White Blood Count 11.9 x10^3/uL (4.0-10.5)
[2023-03-26 05:35] LABS: ANION GAP 11.9 MEQ/L (5-15); BLOOD UREA NITROGEN 15 mg/dL (9-20); CHLORIDE 100 mmol/L (98-107); Calcium 7.9 mg/dL (8.4-10.2); Carbon Dioxide 26 mmol/L (22-30); Creatinine 1 0.73 mg/dL (0.66-1.25); EST GLOMERULAR FILTRATION RATE > 60.0 ML/MIN; Glucose 91 mg/dL (74-106); Potassium 3.9 mmol/L (3.5-5.1); SODIUM 134 mmol/L (137-145)
[2023-03-26 07:11] LABS: Slide Review YES
[2023-03-26] MEDS: Reglan 10 MG/2 ML IV SCH ×4 (08:01→21:34)
[2023-03-26] MEDS ORDERED: TREXALL 2.5 MG PO SCH (10:00)
[2023-03-26] MEDS: ROCEPHIN 1 Gm-D5w 50 ml Bag** 1 G/50 ML IVPB IV SCH (10:24)
[2023-03-26] MEDS: NEURONTIN PO SCH ×2 (10:25→21:34)
[2023-03-26] MEDS: ENOXAPARIN SODIUM SQ SCH (10:25)
[2023-03-26] MEDS: PROTONIX 40 MG IV IV SCH ×2 (10:25→21:34)
[2023-03-26] MEDS: CLARITIN 10 MG PO SCH (10:25)
[2023-03-26] MEDS: ZOLOFT 50 MG TABLET PO SCH (10:25)
[2023-03-26] MEDS: Zestril 10 MG PO SCH (10:25)
[2023-03-26] MEDS: Wellbutrin XL 150 MG PO SCH (10:28)
--- NOTE | 2023-03-26 17:26 | PCM.NOTE ---
Date and Time: 03/26/23 1721 Subjective Assessment: No acute events overnight. Has not yet had bowel movement or flatus. 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 - Review of Systems Constitutional: No Fever, No Chills, No Night Sweats Abdominal/Gastrointestinal: Abdominal Pain, No Nausea All Other Systems: Reviewed and Negative Objective Exam General Appearance: no apparent distress Neurologic Exam: alert, oriented x 3, normal mood/affect Skin Exam: No rash Respiratory Exam: normal breath sounds, lungs clear, No respiratory distress Cardiovascular Exam: regular rate/rhythm, normal heart sounds, No murmur Gastrointestinal/Abdomen Exam: soft, tenderness, other (RUSTAM drain in the right lower quadrant with minimal amount of serosanguineous output), No distention OBJECTIVE DATA Vital Signs: Vital Signs - 24 hr Temp Pulse Resp BP Pulse Ox 03/26/23 14:00 96.2 F 71 18 168/89 97 03/26/23 09:04 93 L 03/26/23 07:20 97.0 F 69 18 165/77 93 L 03/26/23 05:24 92 L 03/26/23 04:40 97.7 F 69 16 168/81 96 03/26/23 02:00 67 17 162/78 95 03/26/23 00:00 97.0 F 59 L 20 182/83 99 03/25/23 20:00 97.8 F 72 18 184/90 96 03/25/23 19:27 97 03/25/23 17:59 97 Pain Assessment - Last Documented Pain Intensity 2 Pain Scale Used 0-10 Pain Scale Intake and Output: Intake & Output 03/24/23 03/25/23 03/26/23 03/27/23 11:59 11:59 11:59 11:59 Intake Total 2804 0 1571 0 Output Total 400 3300 4125 1035 Balance 3222 -3442 -1667 -1033 Weight 71.7 kg 71.7 kg Lab Results: Lab Results-Last 24 Hours 03/26/23 03/26/23 Range/Units 04:28 04:28 WBC 11.9 H (4.0-10.5) x10^3/uL RBC 4.35 (4.1-5.6) x10^6/uL Hgb 13.9 (12.5-18.0) g/dL Hct 41.6 L (42-50) % MCV 95.6 (78-100) fL MCH 32.0 (26-32) pg MCHC 33.4 (32-36) g/dL RDW 13.8 (11.5-14.0) % Plt Count 136 L (150-450) x10^3/uL MPV 11.0 (7.5-11.0) fL Sodium 134 L (137-145) mmol/L Potassium 3.9 (3.5-5.1) mmol/L Chloride 100 (98-107) mmol/L Carbon Dioxide 26 (22-30) mmol/L Anion Gap 11.9 (5-15) MEQ/L BUN 15 (9-20) mg/dL Creatinine 0.73 (0.66-1.25) mg/dL Estimated GFR > 60.0 ML/MIN Glucose 91 (74-106) mg/dL Calcium 7.9 L (8.4-10.2) mg/dL Slides for Path Review YES Multi-Disciplinary Progress Notes: Multi-Disciplinary Progress Notes 03/26/23 13:49 Case Management Note by Klaudia Garcia PATIENT STILL EARLY IN POST OP PERIODS- ABLE TO AMBULATE WITH ASSIST. PATIENT NORMALLY INDEPENDENT WITH ADLS- DO NOT ANTICIPATE ANY NEW NEEDS AT DC- IF ANY- [facility]. WILL CONTINUE TO FOLLOW AND REASSESS NEEDS CLOSER TO TIME OF DC Initialized on 03/26/23 13:49 - END OF NOTE 03/26/23 09:06 Respiratory Note by Jayna Cedillo Patient refused Incentive Spirometer at this time. Initialized on 03/26/23 09:06 - END OF NOTE Assessment/Plan (1) Small bowel obstruction, partial Current Visit: Yes Status: Acute Assessment & Plan: 62 y/o with h/o HTN, OA, and headaches, here with SBO. ## Small bowel obstruction - S/p partial SB resection on 03/24 (POD 2). Pain improved. Not yet had flatus. Continue NPO until flatus or cleared by surgery Dr. Delacruz Continue Rocephin/Flagyl PRN Dilaudid 1 mg q4h Continue NS at 125 ml/hr PRN Zofran 4 ## Depression - Continue home Wellbutrin 300 daily, sertraline 50 daily ## BPH Continue home Flomax 0.4 ## Neuropathy Continue home gabapentin Code Status: Full code PPx: SCDs Diet: NPO Entirety of encounter took place via telemedicine, to which patient consented. Code(s): K56.600 - PARTIAL INTESTINAL OBSTRUCTION, UNSPECIFIED TO CAUSE
[2023-03-26] MEDS: Flomax 0.4 MG PO SCH (21:33)
[2023-03-26] MEDS: FOLATE 1 MG PO SCH (21:33)
[2023-03-26] MEDS: ZOCOR 20MG PO SCH (21:33)
[2023-03-27] MEDS: FLAGYL 500 MG IVPB 500 MG/100 ML BAG IV SCH ×3 (01:26→17:05)
[2023-03-27] MEDS: Hydromorphone 1 mg/ml Injection IV PRN ×3 (04:28→22:18)
[2023-03-27 05:57] LABS: Hematocrit 43.1 % (42-50); Hemoglobin 14.6 g/dL (12.5-18.0); Mean Corpuscular Hemoglobin 32.5 pg (26-32); Mean Corpuscular Hgb Concent. 33.9 g/dL (32-36); Mean Platelet Volume 11.4 fL (7.5-11.0); Platelet Count 159 x10^3/uL (150-450); Red Blood Count 4.49 x10^6/uL (4.1-5.6); Red Cell Distribution Width 13.9 % (11.5-14.0); White Blood Count 9.4 x10^3/uL (4.0-10.5)
[2023-03-27 05:58] LABS: ANION GAP 13.1 MEQ/L (5-15); BLOOD UREA NITROGEN 15 mg/dL (9-20); CHLORIDE 99 mmol/L (98-107); Calcium 8.3 mg/dL (8.4-10.2); Carbon Dioxide 25 mmol/L (22-30); Creatinine 1 0.75 mg/dL (0.66-1.25); EST GLOMERULAR FILTRATION RATE > 60.0 ML/MIN; Glucose 99 mg/dL (74-106); Potassium 3.8 mmol/L (3.5-5.1); SODIUM 134 mmol/L (137-145)
[2023-03-27] MEDS: Sodium Chloride 0.9% 1000 ML 1,000 ML IV SCH ×3 (06:03→22:25)
[2023-03-27] MEDS: Reglan 10 MG/2 ML IV SCH ×4 (07:25→22:21)
[2023-03-27] MEDS: ENOXAPARIN SODIUM SQ SCH (09:30)
[2023-03-27] MEDS: ROCEPHIN 1 Gm-D5w 50 ml Bag** 1 G/50 ML IVPB IV SCH (09:30)
[2023-03-27] MEDS: Zestril 10 MG PO SCH (09:31)
[2023-03-27] MEDS: ZOLOFT 50 MG TABLET PO SCH (09:31)
[2023-03-27] MEDS: NEURONTIN PO SCH ×2 (09:31→22:24)
[2023-03-27] MEDS: PROTONIX 40 MG IV IV SCH ×2 (09:31→22:25)
[2023-03-27] MEDS: CLARITIN 10 MG PO SCH (09:34)
[2023-03-27] MEDS: Wellbutrin XL 150 MG PO SCH (09:34)
--- NOTE | 2023-03-27 12:20 | PCM.NOTE ---
Date and Time: 03/27/23 1217 Subjective Assessment: No acute events overnight. 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 Transitioned to PRN IV Dilaudid. Patient still reports no flatus and no bowel movements. He has been having some abdominal gas, but only having burping. He states he is very hungry. Has been drinking some water. - Review of Systems Abdominal/Gastrointestinal: Abdominal Pain, No Nausea, No Vomiting All Other Systems: Reviewed and Negative Objective Exam General Appearance: no apparent distress Neurologic Exam: alert, oriented x 3, normal mood/affect Skin Exam: other (No drainage around abdominal incision dressings) Respiratory Exam: normal breath sounds, lungs clear, No accessory muscle use Cardiovascular Exam: regular rate/rhythm, normal heart sounds, No murmur, No edema Gastrointestinal/Abdomen Exam: soft, tenderness (Around incision), No guarding, No rebound OBJECTIVE DATA Vital Signs: Vital Signs - 24 hr Temp Pulse Resp BP Pulse Ox 03/27/23 11:39 98.3 F 69 18 153/74 91 L 03/27/23 10:28 93 L 03/27/23 07:15 97.8 F 69 17 138/73 93 L 03/27/23 04:00 98.2 F 83 20 158/92 93 L 03/27/23 00:00 97.3 F 68 20 140/76 92 L 03/26/23 20:00 98.5 F 73 16 166/87 97 03/26/23 18:48 97 03/26/23 17:33 97.3 F 75 18 166/85 95 03/26/23 14:00 96.2 F 71 18 168/89 97 Pain Assessment - Last Documented Pain Intensity 4 Pain Scale Used 0-10 Pain Scale Intake and Output: Intake & Output 03/25/23 03/26/23 03/27/23 03/28/23 11:59 11:59 11:59 11:59 Intake Total 0 1571 4130 Output Total 1270 9875 2905 Balance -1270 -9140 1225 Weight 71.7 kg 71.7 kg Lab Results: Lab Results-Last 24 Hours 03/27/23 03/27/23 Range/Units 04:35 04:35 WBC 9.4 (4.0-10.5) x10^3/uL RBC 4.49 (4.1-5.6) x10^6/uL Hgb 14.6 (12.5-18.0) g/dL Hct 43.1 (42-50) % MCV 96.0 (78-100) fL MCH 32.5 H (26-32) pg MCHC 33.9 (32-36) g/dL RDW 13.9 (11.5-14.0) % Plt Count 159 (150-450) x10^3/uL MPV 11.4 H (7.5-11.0) fL Sodium 134 L (137-145) mmol/L Potassium 3.8 (3.5-5.1) mmol/L Chloride 99 (98-107) mmol/L Carbon Dioxide 25 (22-30) mmol/L Anion Gap 13.1 (5-15) MEQ/L BUN 15 (9-20) mg/dL Creatinine 0.75 (0.66-1.25) mg/dL Estimated GFR > 60.0 ML/MIN Glucose 99 (74-106) mg/dL Calcium 8.3 L (8.4-10.2) mg/dL Multi-Disciplinary Progress Notes: Multi-Disciplinary Progress Notes 03/27/23 10:04 Case Management Note by Klaudia Garcia NO CHANGE IN DC PLANS AT THIS TIME Initialized on 03/27/23 10:04 - END OF NOTE 03/26/23 13:49 Case Management Note by Klaudia Garcia PATIENT STILL EARLY IN POST OP PERIODS- ABLE TO AMBULATE WITH ASSIST. PATIENT NORMALLY INDEPENDENT WITH ADLS- DO NOT ANTICIPATE ANY NEW NEEDS AT DC- IF ANY- [facility]. WILL CONTINUE TO FOLLOW AND REASSESS NEEDS CLOSER TO TIME OF DC Initialized on 03/26/23 13:49 - END OF NOTE Assessment/Plan (1) Small bowel obstruction, partial Current Visit: Yes Status: Acute Assessment & Plan: 62 y/o with h/o HTN, OA, and headaches, here with SBO. ## Small bowel obstruction - S/p partial SB resection on 03/24 (POD 3). Pain improved. Not yet had flatus. NG tube removed. Continue NPO until flatus or cleared by surgery Dr. Delacruz Continue Rocephin/Flagyl PRN Dilaudid 1 mg q4h Continue NS at 125 ml/hr PRN Zofran 4 ## Depression - Continue home Wellbutrin 300 daily, sertraline 50 daily ## BPH Continue home Flomax 0.4 ## Neuropathy Continue home gabapentin Code Status: Full code PPx: SCDs Diet: NPO Entirety of encounter took place via telemedicine, to which patient consented. Code(s): K56.600 - PARTIAL INTESTINAL OBSTRUCTION, UNSPECIFIED TO CAUSE Telemedicine Encounter - Telemedicine Encounter Telemedicine Encounter: The entirety of this encounter was performed via Telemedicine"
[2023-03-27] MEDS: Zofran 4 MG/2 ML VIAL IV PRN (22:18)
[2023-03-27] MEDS: Flomax 0.4 MG PO SCH (22:21)
[2023-03-27] MEDS: ZOCOR 20MG PO SCH (22:23)
[2023-03-27] MEDS: FOLATE 1 MG PO SCH (22:24)
[2023-03-28] MEDS: FLAGYL 500 MG IVPB 500 MG/100 ML BAG IV SCH ×3 (02:15→17:56)
[2023-03-28 05:51] LABS: Hematocrit 37.9 % (42-50); Hemoglobin 12.8 g/dL (12.5-18.0); Mean Cell Volume 95.2 fL (78-100); Mean Corpuscular Hemoglobin 32.2 pg (26-32); Mean Corpuscular Hgb Concent. 33.8 g/dL (32-36); Mean Platelet Volume 10.6 fL (7.5-11.0); Platelet Count 146 x10^3/uL (150-450); Red Blood Count 3.98 x10^6/uL (4.1-5.6); Red Cell Distribution Width 13.6 % (11.5-14.0); White Blood Count 7.2 x10^3/uL (4.0-10.5)
[2023-03-28 06:10] LABS: BLOOD UREA NITROGEN 15 mg/dL (9-20); CHLORIDE 102 mmol/L (98-107); Carbon Dioxide 27 mmol/L (22-30); Creatinine 1 0.72 mg/dL (0.66-1.25); EST GLOMERULAR FILTRATION RATE > 60.0 ML/MIN; Glucose 101 mg/dL (74-106); Potassium 3.4 mmol/L (3.5-5.1); SODIUM 134 mmol/L (137-145)
[2023-03-28] MEDS: Reglan 10 MG/2 ML IV SCH ×4 (08:37→22:38)
[2023-03-28] MEDS: ZOLOFT 50 MG TABLET PO SCH (08:44)
[2023-03-28] MEDS: CLARITIN 10 MG PO SCH (08:44)
[2023-03-28] MEDS: Zestril 10 MG PO SCH (08:44)
[2023-03-28] MEDS: NEURONTIN PO SCH ×2 (08:44→22:38)
[2023-03-28] MEDS: Wellbutrin XL 150 MG PO SCH (08:44)
[2023-03-28] MEDS: ENOXAPARIN SODIUM SQ SCH (08:44)
[2023-03-28] MEDS: ROCEPHIN 1 Gm-D5w 50 ml Bag** 1 G/50 ML IVPB IV SCH (08:46)
[2023-03-28] MEDS: Hydromorphone 1 mg/ml Injection IV PRN ×2 (12:35→23:12)
--- NOTE | 2023-03-28 14:47 | PCM.NOTE ---
Date and Time: 03/28/23 1443 Subjective Assessment: No acute events overnight. Patient was started on clear liquid diet, which he tolerated well. Still has not had bowel movement or flatus. But his stomach gas is improving. Denies abdominal pain, nausea, or abdominal distention. - Review of Systems All Other Systems: Reviewed and Negative Objective Exam General Appearance: no apparent distress Neurologic Exam: alert, oriented x 3, normal mood/affect Skin Exam: other (Abdominal incision dressing clean dry and intact) Eye Exam: eyes nml inspection Respiratory Exam: normal breath sounds, No respiratory distress, No accessory muscle use Cardiovascular Exam: regular rate/rhythm, No murmur, No edema Gastrointestinal/Abdomen Exam: soft, normal bowel sounds, No distention OBJECTIVE DATA Vital Signs: Vital Signs - 24 hr Temp Pulse Resp BP Pulse Ox 03/28/23 11:19 98.6 F 76 16 168/75 95 03/28/23 07:37 98.7 F 73 18 153/72 92 L 03/28/23 07:00 92 L 03/28/23 04:00 98.6 F 65 20 138/66 94 L 03/27/23 23:34 99.1 F 82 18 160/74 91 L 03/27/23 20:00 99.5 F 80 16 170/80 93 L 03/27/23 19:25 93 L 03/27/23 16:00 99.1 F 86 16 143/78 92 L Pain Assessment - Last Documented Pain Intensity 4 Pain Scale Used 0-10 Pain Scale Intake and Output: Intake & Output 03/26/23 03/27/23 03/28/23 03/29/23 11:59 11:59 11:59 11:59 Intake Total 1571 4130 1473 Output Total 3445 2905 1733 Balance -1874 1225 -260 Weight 71.7 kg Lab Results: Lab Results-Last 24 Hours 03/28/23 03/28/23 Range/Units 04:48 04:48 WBC 7.2 (4.0-10.5) x10^3/uL RBC 3.98 L (4.1-5.6) x10^6/uL Hgb 12.8 (12.5-18.0) g/dL Hct 37.9 L (42-50) % MCV 95.2 (78-100) fL MCH 32.2 H (26-32) pg MCHC 33.8 (32-36) g/dL RDW 13.6 (11.5-14.0) % Plt Count 146 L (150-450) x10^3/uL MPV 10.6 (7.5-11.0) fL Sodium 134 L (137-145) mmol/L Potassium 3.4 L (3.5-5.1) mmol/L Chloride 102 (98-107) mmol/L Carbon Dioxide 27 (22-30) mmol/L Anion Gap 9.0 (5-15) MEQ/L BUN 15 (9-20) mg/dL Creatinine 0.72 (0.66-1.25) mg/dL Estimated GFR > 60.0 ML/MIN Glucose 101 (74-106) mg/dL Calcium 8.0 L (8.4-10.2) mg/dL Multi-Disciplinary Progress Notes: Multi-Disciplinary Progress Notes 03/28/23 09:41 Case Management Note by Klaudia Garcia S/W PATIENT ABOUT PLANS FOR DC- HE PLANS TO DC HOME AT TIME OF DC. WE DISCUSSED HHC. PATIENT AGREEABLE TO SERVICES. WILL SEND REFERRAL TO [facility] THEY ARE THE [facility] PROVIDER IN THIS AREA. 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 HE REPORTS HE LIVES WITH HIS FATHER WHO CAN ASSIST HIM NEEDED. PATIENT REPORTS [facility]- [facility]NOT [facility] OVER THE WEEKEND. HE REPORTS HE CAN GET RX AT LOCAL PHARMACIES AND THEN SUBMIT TO ME FOR REIMBURSEMENT. HE REPORTS HE HAS THE FUNDS TO DO THAT IF NECESSARY. NO OTHER NEW NEEDS IDENTIFIED AT THIS TIME Initialized on 03/28/23 09:41 - END OF NOTE 03/28/23 09:31 Pharmacy Note by Cameron Hines Today is day 7 of Flagyl and Rocephin IV. Please review if these are still needed. Initialized on 03/28/23 09:31 - END OF NOTE 03/28/23 09:17 Case Management Note by Klaudia Garcia REFERRAL WAS FAXED TO [facility] ([facility] PROVIDER). THEY WILL NEED NOTIFIED AT TIME OF DC AT [phone]. THEY WILL NEED FAXED THE DC INSTRUCTIONS, DC MED LIST AND DC SUMMARY (IF AVAILABLE) TO [phone] Initialized on 03/28/23 09:17 - END OF NOTE Assessment/Plan (1) Small bowel obstruction, partial Current Visit: Yes Status: Acute Assessment & Plan: 62 y/o with h/o HTN, OA, and headaches, here with SBO. ## Small bowel obstruction - S/p partial SB resection on 03/24 (POD 4). Has not yet had flatus or bowel movement. But NGT removed, and he is now tolerating a clear liquid diet. Continue Advancing diet per surgery Continue Rocephin/Flagyl For 1 more day, until postop day 5 PRN Dilaudid 1 mg q4h DC continuous normal saline since he is now eating. PRN Zofran 4 ## Depression - Continue home Wellbutrin 300 daily, sertraline 50 daily ## BPH Continue home Flomax 0.4 ## Neuropathy Continue home gabapentin Code Status: Full code PPx: SCDs Diet: NPO Entirety of encounter took place via telemedicine, to which patient consented. Code(s): K56.600 - PARTIAL INTESTINAL OBSTRUCTION, UNSPECIFIED TO CAUSE Telemedicine Encounter - Telemedicine Encounter Telemedicine Encounter: The entirety of this encounter was performed via Telemedicine"
[2023-03-28] MEDS: Flomax 0.4 MG PO SCH (22:37)
[2023-03-28] MEDS: FOLATE 1 MG PO SCH (22:38)
[2023-03-28] MEDS: ZOCOR 20MG PO SCH (22:38)
[2023-03-29] MEDS: FLAGYL 500 MG IVPB 500 MG/100 ML BAG IV SCH ×2 (01:26→08:41)
[2023-03-29 06:36] LABS: ANION GAP 10.6 MEQ/L (5-15); BLOOD UREA NITROGEN 14 mg/dL (9-20); CHLORIDE 100 mmol/L (98-107); Calcium 8.3 mg/dL (8.4-10.2); Carbon Dioxide 28 mmol/L (22-30); Creatinine 1 0.76 mg/dL (0.66-1.25); EST GLOMERULAR FILTRATION RATE > 60.0 ML/MIN; Glucose 107 mg/dL (74-106); MAGNESIUM 1.8 mg/dL (1.6-2.3); Potassium 3.7 mmol/L (3.5-5.1); SODIUM 135 mmol/L (137-145)
[2023-03-29] MEDS: ZOLOFT 50 MG TABLET PO SCH (08:37)
[2023-03-29] MEDS: NEURONTIN PO SCH (08:37)
[2023-03-29] MEDS: Zestril 10 MG PO SCH (08:37)
[2023-03-29] MEDS: CLARITIN 10 MG PO SCH (08:38)
[2023-03-29] MEDS: ENOXAPARIN SODIUM SQ SCH (08:38)
[2023-03-29] MEDS: Wellbutrin XL 150 MG PO SCH (08:42)
[2023-03-29] MEDS: Reglan 10 MG/2 ML IV SCH (08:45)
[2023-03-29] MEDS ORDERED: NORCO 7.5/325 MG TAB PO PRN (11:25)
[2023-03-29 11:57] VITALS: BP 143/82; PULSE 84; O2SAT 96
--- NOTE | 2023-03-29 12:22 | PCM.DS ---
Discharge Summary Date of Admission: 03/24/23 16:45 Date of Discharge: 03/29/2023 Admitting Physician: JODI CORREIA MD Primary Care Provider: [facility] Allergies Allergies No Known Drug Allergies Allergy (Verified 03/22/23 08:12) Hospital Summary - Hospital Course Hospital Course: [age]-year-old male with history of hypertension and osteoarthritis, who presented to the hospital with abdominal pain, nausea, vomiting, and lack of bowel movements. He had a early signs of bowel obstruction, and was admitted on IV fluids, pain management, and empiric antibiotics. He failed conservative management, and a small bowel follow-through study showed consistent SBO. He will went to the OR with Dr. Delacruz, and underwent ex lap with resection of small amount of small bowel with primary anastomosis, as well as appendectomy. Pathology showed early ischemic injury, with benign appendix. Patient recovered well, eventually having baptism of bowel movements. He was advanced to a mechanical soft diet, which she was tolerating prior to discharge. He completed a 7-day course of Rocephin and Flagyl from the surgery. He is being discharged home to follow-up with surgery in 7 days. Surgery is planning on calling in a pain medication prescription to the pharmacy. Entirety of encounter took place via telemedicine, to which patient consented. Greater than 30 minutes were spent arranging patient discharge. - Vitals & Intake/Output Vital Signs: Vital Signs Temperature 98.7 F 03/29/23 11:57 Pulse Rate 84 03/29/23 11:57 Respiratory Rate 17 03/29/23 11:57 Blood Pressure 143/82 03/29/23 11:57 O2 Sat by Pulse Oximetry 96 03/29/23 11:57 Intake & Output: Intake & Output 03/27/23 03/28/23 03/29/23 03/30/23 11:59 11:59 11:59 11:59 Intake Total 4130 1473 1460 Output Total 2905 1733 510 30 Balance 1225 -260 950 -30 Weight 71.7 kg - Lab Result Diagrams: 03/28/23 04:48 03/29/23 05:50 Lab Results-Last 24 Hrs: Lab Results-Last 24 Hours 03/24/23 03/29/23 Range/Units 16:34 05:50 Sodium 135 L (137-145) mmol/L Potassium 3.7 (3.5-5.1) mmol/L Chloride 100 (98-107) mmol/L Carbon Dioxide 28 (22-30) mmol/L Anion Gap 10.6 (5-15) MEQ/L BUN 14 (9-20) mg/dL Creatinine 0.76 (0.66-1.25) mg/dL Estimated GFR > 60.0 ML/MIN Glucose 107 H (74-106) mg/dL Calcium 8.3 L (8.4-10.2) mg/dL Magnesium 1.8 (1.6-2.3) mg/dL Surg PTH Specimen SEE COMMENTS Micro Results-Entire Visit: Microbiology 03/24/23 16:34 Urine Culture - Final Catherized NO GROWTH - Procedures and Test Procedures and Tests throughout Hospitalization: Therapy Orders & Screens 03/22/23 15:29 Smoking Cessation Education ONCE Comment: Diagnosis: impending small bowel obstruction Smoking Status: Current every day smoker How long have you smoked: 45 years Have you smoked in the past 12 months: Yes Approximately how many cigarettes per day: 15-20 Do you dip or chew tobacco: No 03/24/23 18:00 Oxygen Oxymask LPM 10 lpm Comment: Diagnosis: impending small bowel obstruction 03/26/23 09:04 Incentive Spirometry UD Comment: Diagnosis: ABD PAIN, SBO Discharge Exam General Appearance: no apparent distress Neurologic Exam: alert, oriented x 3 Respiratory Exam: normal breath sounds, lungs clear, No accessory muscle use Cardiovascular Exam: regular rate/rhythm, normal heart sounds, No edema Gastrointestinal/Abdomen Exam: soft, tenderness (mild aroud incision), other (incision site dressing clean, dry, intact) Final Diagnosis/Problem List - Final Discharge Diagnosis/Problem (1) Small bowel obstruction, partial Current Visit: Yes Status: Acute Code(s): K56.600 - PARTIAL INTESTINAL OBSTRUCTION, UNSPECIFIED TO CAUSE - Discharge Discharge Date: 03/29/23 Disposition: Home, Self-Care Condition: Good Prescriptions: Continue Tamsulosin HCl 0.4 mg [Flomax 0.4 MG] 0.8 mg PO HS Omeprazole Magnesium [Prilosec] 20 mg PO DAILY Folic Acid 1 mg PO HS Atorvastatin Calcium [Lipitor] 40 mg PO HS Meloxicam 15 mg [Meloxicam 15 MG] 15 mg PO DAILY Fexofenadine HCl [Sherri Allergy] 180 mg PO DAILY Lidocaine 1 each TP DAILY PRN PRN PRN Reason: Pain Calcium Polycarbophil 625 mg [Fibercon 625 mg] 625 mg PO DAILY Methotrexate Sodium 2.5 mg [Trexall 2.5 mg] 15 mg PO WEEKLY Loperamide HCl 2 mg [Imodium 2 mg] 2 mg PO DAILY PRN PRN PRN Reason: Diarrhea Gabapentin [Neurontin ] 300 mg PO BID Sertraline HCl 50 mg [Zoloft 50 mg Tablet] 50 mg PO DAILY buPROPion HCL [Wellbutrin Xl] 300 mg PO QAM Instructions: Small Bowel Resection, Ulises-Coronel Drain, Postoperative Pain (DC), Abdominal Binder Additional Instructions: [facility] HAS BEEN SET UP. THEY WILL CONTACT YOU WITHIN 1-2 DAYS AFTER DC TO SET UP A TIME TO COME SEE YOU. THEIR PHONE NUMBER IS [phone] the office of Dr Jose Subramanian [phone] first thing friday to [facility] a follow up for within 7 days of D/C Leave your incision open to air, wash with soap and water but do not scrub. Dr Jose Subramanian called in a medication for pain into the pharmacy at [facility] Follow up with: [facility] [Primary Care Provider] - Forms: Discharge Instructions
== END 2023-03-29 12:46 | disposition home health service (06) | DRG 330 ==
LOC: ED 08:06 → MED SURG 13:28 → ED 03-24 08:06 → MED SURG 03-24 13:28 → OBSVTOIN 03-24 16:45
PROVIDERS: ADMIT Internal Medicine; ATTEND Family Medicine
PROC: 0DB80ZZ Excision of Small Intestine, Open Approach (ICD-10-PCS; principal; 2023-03-24)
PROC: 0DTJ0ZZ Resection of Appendix, Open Approach (ICD-10-PCS; 2023-03-24)
DX: K56.600 Partial intestinal obstruction, unspecified as to cause (principal); C64.9 Malignant neoplasm of unspecified kidney, except renal pelvis; D72.829 Elevated white blood cell count, unspecified; K38.1 Appendicular concretions; I10 Essential (primary) hypertension; E78.5 Hyperlipidemia, unspecified; R11.2 Nausea with vomiting, unspecified; N40.0 Benign prostatic hyperplasia without lower urinary tract symptoms; F32.A Depression, unspecified; Z72.0 Tobacco use; Z79.899 Other long term (current) drug therapy; Z20.828 Contact with and (suspected) exposure to other viral communicable diseases
CPT/HCPCS: 36415; 64488; 74018; 74178; 74250; 76937; 80048; 80053; 80307; 81001; 82150; 83690; 83735; 84484; 85025; 85027; 87086; 93005; 94760; 94762; 96365; 96374; 96375; 96376; 99285; 99291; G0378; J0360; J0694; J0696; J1100; J1170; J1650; J1885; J2250; J2270; J2405; J2704; J3010; J3475; L0625; Q3014; A9270-GY

== ENCOUNTER 2024-03-03 21:45 | Inpatient (IN) | payer OTHER, MEDICARE ==
[2024-03-03] MEDS ORDERED: Zofran 4 MG/2 ML VIAL ONE (22:07)
[2024-03-03] MEDS ORDERED: MORPHINE SULFATE 2 MG INJ ONE (22:07)
[2024-03-03 22:08] LABS: Absolute Neutrophil Ct (ANC) 9.96 x10^3/uL (1.4-6.9); BASOPHIL % 0.4 % (0.0-0.4); Basophil (Absolute #) 0.05 x10^3/uL (0-0.4); Eosinophil % 1.4 % (0.00-5.0); Eosinophil (Absolute #) 0.18 x10^3/uL (0-0.5); Hematocrit 43.8 % (42-50); Hemoglobin 15.2 g/dL (12.5-18.0); IMMATURE GRAN # 0.04 x10^3u/L (0.00-0.03); IMMATURE GRAN % 0.3 % (0.00-0.4); Lymphocyte (Absolute #) 1.82 x10^3/uL (1.0-4.6); Lymphocytes % 14.1 % (24.0-44.0); Mean Cell Volume 90.5 fL (78-100); Mean Corpuscular Hemoglobin 31.4 pg (26-32); Mean Corpuscular Hgb Concent. 34.7 g/dL (32-36); Mean Platelet Volume 10.9 fL (7.5-11.0); Monocyte (Absolute #) 0.85 x10^3/uL (0.0-1.3); Monocytes % 6.6 % (0.0-12.0); Neutrophil % 77.2 % (36.0-66.0); Platelet Count 210 x10^3/uL (150-450); Red Blood Count 4.84 x10^6/uL (4.1-5.6); Red Cell Distribution Width 14.3 % (11.5-14.0); White Blood Count 12.9 x10^3/uL (4.0-10.5)
[2024-03-03] MEDS ORDERED: Sodium Chloride 0.9% 1000 ML 1,000 ML ONE (22:08)
[2024-03-03] MEDS: Sodium Chloride 0.9% 1000 ML 1,000 ML IV STA (22:13)
[2024-03-03] MEDS: Zofran 4 MG/2 ML VIAL IV ONE (22:14)
[2024-03-03] MEDS: MORPHINE SULFATE 2 MG INJ IV ONE (22:16)
[2024-03-03 22:22] LABS: ALBUMIN 4.8 g/dL (3.5-5.0); ANION GAP 15.3 MEQ/L (5-15); BILIRUBIN,TOTAL 0.6 mg/dL (0.2-1.3); Calcium 9.8 mg/dL (8.4-10.2); Creatinine 1 1.09 mg/dL (0.66-1.25); EST GLOMERULAR FILTRATION RATE 76.3 ML/MIN; Potassium 4.3 mmol/L (3.5-5.1); Total Protein 7.9 g/dL (6.3-8.2)
--- NOTE | 2024-03-03 23:21 | ERPHSYRPT ---
- History of Present Illness Time Seen by Provider: 03/03/24 22:00 Historian: patient Exam Limitations: no limitations Patient Subjective Stated Complaint: pt states he began having abd pain approx 2 hours prior to coming into er. Triage Nursing Assessment: pt alert and oriented, answers questions approp. pt back to room per wheelchair and ambulates to bed with steady gait noted. respirations nonlabored. skin clammy. very few bowel sounds noted, pt reports tenderness to abd with light palpation. Physician History: 63-year-old male presents to our ED for evaluation of abdominal pain that started approximately 2 hours prior to arrival. Patient has a history of bowel resection, renal carcinoma with partial nephrectomy and history of appendectomy. No trauma no fever. Pain described as an ache that is generalized. Pain worse in the periumbilical region. Patient is nauseous and vomiting. Patient states he has been experiencing some loose stools as well. No fever. No rash. Symptoms are mild to moderate in intensity. Patient's abdomen appears distended. Pain worse with palpation pain improved with rest. Patient otherwise feels well. He voices no other complaints or concerns at this time. Portions of this note were created with voice recognition technology. There may be grammatical, spelling, punctuation or sound alike errors Timing/Duration: today Activities at Onset: none Quality: aching Abdominal Pain Onset Location: generalized abdomen Pain Radiation: no radiation Severity of Pain-Max: moderate Severity of Pain-Current: mild Modifying Factors: Improves With: palpation Associated Symptoms: denies symptoms Previous symptoms: no prior history Allergies/Adverse Reactions: No Known Drug Allergies Allergy (Verified 03/03/24 22:16) Home Medications: Atorvastatin Calcium [Lipitor] 40 mg PO HS 11/05/20 [History] Folic Acid 1 mg PO HS 11/05/20 [History] Omeprazole Magnesium [Prilosec] 20 mg PO DAILY 11/05/20 [History] Tamsulosin HCl 0.4 mg [Flomax 0.4 MG] 0.8 mg PO HS 11/05/20 [History] Calcium Polycarbophil 625 mg [Fibercon 625 mg] 625 mg PO DAILY 03/15/23 [History] Fexofenadine HCl [Sherri Allergy] 180 mg PO DAILY 03/15/23 [History] Lidocaine 1 each TP DAILY PRN PRN 03/15/23 [History] Meloxicam 15 mg [Meloxicam 15 MG] 15 mg PO DAILY 03/15/23 [History] Methotrexate Sodium 2.5 mg [Trexall 2.5 mg] 15 mg PO WEEKLY 03/15/23 [History] Gabapentin [Neurontin ] 300 mg PO BID 03/22/23 [History] Loperamide HCl 2 mg [Imodium 2 mg] 2 mg PO DAILY PRN PRN 03/22/23 [History] Sertraline HCl 50 mg [Zoloft 50 mg Tablet] 50 mg PO DAILY 03/22/23 [History] buPROPion HCL [Wellbutrin Xl] 300 mg PO QAM 03/22/23 [History] Hx Tetanus, Diphtheria Vaccination/Date Given: Yes Hx Influenza Vaccination/Date Given: Yes Hx Pneumococcal Vaccination/Date Given: Yes Travel Risk - International Travel Have you traveled outside of the country in past 3 weeks: No - Emerging Infectious Disease Are you exhibiting symptoms associated with any current EIDs: No - Review of Systems Constitutional: No Symptoms, No Fever, No Chills Eyes: No Symptoms Ears, Nose, & Throat: No Symptoms Respiratory: No Symptoms, No Cough, No Dyspnea Cardiac: No Symptoms, No Chest Pain, No Edema, No Syncope Abdominal/Gastrointestinal: No Symptoms, No Abdominal Pain, No Nausea, No Vomiting, No Diarrhea Genitourinary Symptoms: No Symptoms, No Dysuria Musculoskeletal: No Symptoms, No Back Pain, No Neck Pain Skin: No Symptoms, No Rash Neurological: No Symptoms, No Dizziness, No Focal Weakness, No Sensory Changes Psychological: No Symptoms Endocrine: No Symptoms Hematologic/Lymphatic: No Symptoms Immunological/Allergic: No Symptoms All Other Systems: Reviewed and Negative - Past Medical History Pertinent Past Medical History: Yes Neurological History: Other Cardiac History: High Cholesterol, Hypertension Respiratory History: No Pertinent History Endocrine Medical History: No Pertinent History Musculoskeletal History: Degenerative Disk Disease History: Kidney Cancer Psycho-Social History: Anxiety, Depression Male Reproductive Disorders: Prostate Problems Other Medical History: Cluster Headaches, Fx Left Wrist, Hx of surgery for nasal defect, hx ear surgery, 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, - Past Surgical History Past Surgical History: Yes Cardiac: No Pertinent History Gastrointestinal: Appendectomy, Bowel Surgery Musculoskeletal: Orthopedic Surgery Other Surgical History: Fx Left Wrist, Hx of surgery for nasal defect, hx ear surgery, throat surgery,. 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 small bowel resection appy - Social History Smoking Status: Current every day smoker How long have you smoked: 45 years Exposure to second hand smoke: Yes Drug Use: none Patient Lives Alone: No - Nursing Vital Signs Nursing Vital Signs: Initial Vital Signs Temperature 97.4 F 03/03/24 21:56 Pulse Rate 65 03/03/24 21:56 Respiratory Rate 18 03/03/24 21:56 Blood Pressure 174/88 03/03/24 21:56 O2 Sat by Pulse Oximetry 100 03/03/24 21:56 Pain Scale Pain Intensity 5 - Physical Exam General Appearance: no apparent distress, alert Eye Exam: PERRL/EOMI, eyes nml inspection Ears, Nose, Throat Exam: normal ENT inspection, pharynx normal, moist mucous membranes Neck Exam: normal inspection, non-tender, supple, full range of motion Respiratory Exam: normal breath sounds, lungs clear, airway intact, No respiratory distress Cardiovascular Exam: regular rate/rhythm, normal heart sounds Gastrointestinal/Abdomen Exam: soft, tenderness, distention, No mass Back Exam: normal inspection, normal range of motion, No CVA tenderness, No vertebral tenderness Extremity Exam: normal inspection, normal range of motion, pelvis stable Neurologic Exam: alert, oriented x 3, cooperative, normal mood/affect, sensation nml, No motor deficits Skin Exam: normal color, warm, dry Lymphatic Exam: No adenopathy SpO2 Interpretation: normal SpO2: 100 O2 Delivery: Room Air - Course Nursing assessment & vital signs reviewed: Yes EKG Interpreted by Me: RATE (63), Sinus Rhythm, NORMAL AXIS, NORMAL INTERVALS Ordered Tests: Active Orders 24 hr Category Date Time Status IV Insertion STAT Care 03/03/24 21:59 Active NPO Diet 03/04/24 00:43 Active ABDOMEN AND PELVIS W/0 CONTRAS [CT] Stat Exams 03/03/24 21:59 Completed CBC W DIFF Stat Lab 03/03/24 22:00 Completed CMP Stat Lab 03/03/24 22:00 Completed LIPASE Stat Lab 03/03/24 22:00 Completed TROPONIN Q4H Lab 03/03/24 22:00 Completed TROPONIN Q4H Lab 03/04/24 02:00 Ordered TROPONIN Q4H Lab 03/04/24 06:00 Ordered UA W/RFX UR CULTURE Stat Lab 03/03/24 21:59 Ordered Transfer Order Routine Transfer 03/04/24 Ordered Medication Summary Generic Name Dose Route Start Last Admin Trade Name Freq PRN Reason Stop Dose Admin Piperacillin Sod/Tazobactam 100 mls @ 200 mls/hr 03/04/24 00:42 Sod 3.375 gm/ Sodium Chloride IV 03/04/24 01:11 STAT ONE Sodium Chloride 1,000 mls @ 100 mls/hr 03/04/24 01:00 Sodium Chloride 0.9% 1000 Ml IV 04/03/24 00:59 .Q10H SONJA Discontinued Medications Generic Name Dose Route Start Last Admin Trade Name Freq PRN Reason Stop Dose Admin Sodium Chloride 1,000 mls @ 999 mls/hr 03/03/24 21:59 03/03/24 22:13 Sodium Chloride 0.9% 1000 Ml IV 03/03/24 22:59 999 mls/hr .Q1H1M STA Administration Sodium Chloride Confirm 03/03/24 22:08 Sodium Chloride 0.9% 1000 Ml Administered 03/03/24 22:09 Dose 1,000 mls @ ud .ROUTE .STK-MED ONE Morphine Sulfate 2 mg 03/03/24 21:59 03/03/24 22:16 Morphine Sulfate 2 Mg/Ml Inj IV 03/03/24 22:00 2 mg STAT ONE Administration Morphine Sulfate Confirm 03/03/24 22:07 Morphine Sulfate 2 Mg/Ml Inj Administered 03/03/24 22:08 Dose 2 mg .ROUTE .STK-MED ONE Ondansetron HCl 4 mg 03/03/24 21:59 03/03/24 22:14 Ondansetron Hcl 4 Mg/2 Ml Vial IV 03/03/24 22:00 4 mg STAT ONE Administration Ondansetron HCl Confirm 03/03/24 22:07 Ondansetron Hcl 4 Mg/2 Ml Vial Administered 03/03/24 22:08 Dose 4 mg .ROUTE .STK-MED ONE Lab/Rad Data: Laboratory Result Diagrams 03/03/24 22:00 03/03/24 22:00 Laboratory Results 03/03/24 03/03/24 03/03/24 Range/Units 22:00 22:00 22:00 WBC 12.9 H (4.0-10.5) x10^3/uL RBC 4.84 (4.1-5.6) x10^6/uL Hgb 15.2 (12.5-18.0) g/dL Hct 43.8 (42-50) % MCV 90.5 (78-100) fL MCH 31.4 (26-32) pg MCHC 34.7 (32-36) g/dL RDW 14.3 H (11.5-14.0) % Plt Count 210 (150-450) x10^3/uL MPV 10.9 (7.5-11.0) fL Gran % 77.2 H (36.0-66.0) % Immature Gran % (Auto) 0.3 (0.00-0.4) % Nucleat RBC Rel Count 0.0 (0.00-0.1) % Eos # (Auto) 0.18 (0-0.5) x10^3/uL Immature Gran # (Auto) 0.04 H (0.00-0.03) x10^3u/L Absolute Lymphs (auto) 1.82 (1.0-4.6) x10^3/uL Absolute Monos (auto) 0.85 (0.0-1.3) x10^3/uL Absolute Nucleated RBC 0.00 (0.00-0.01) x10^3u/L Lymphocytes % 14.1 L (24.0-44.0) % Monocytes % 6.6 (0.0-12.0) % Eosinophils % 1.4 (0.00-5.0) % Basophils % 0.4 (0.0-0.4) % Absolute Granulocytes 9.96 H (1.4-6.9) x10^3/uL Basophils # 0.05 (0-0.4) x10^3/uL Sodium 137 (135-145) mmol/L Potassium 4.3 (3.5-5.1) mmol/L Chloride 107 (98-107) mmol/L Carbon Dioxide 19 L (22-30) mmol/L Anion Gap 15.3 H (5-15) MEQ/L BUN 13 (9-20) mg/dL Creatinine 1.09 (0.66-1.25) mg/dL Estimated GFR 76.3 ML/MIN Glucose 131 H (74-106) mg/dL Calcium 9.8 (8.4-10.2) mg/dL Total Bilirubin 0.60 (0.2-1.3) mg/dL AST 21 (17-59) U/L ALT 19 (0-50) U/L Alkaline Phosphatase 125 (38-126) U/L Troponin I < 0.012 (0.000-0.033) ng/mL Serum Total Protein 7.9 (6.3-8.2) g/dL Albumin 4.8 (3.5-5.0) g/dL Lipase 141 (23-300) U/L - Progress Progress: improved Progress Note: Case discussed with Dr. Jose Subramanian at 12:[address] Jose Subramanian accepts consultation. Patient will be admitted to the hospitalist. Per Dr. Jose Subramanian we will place an NG tube. We will start antibiotics as well. Case discussed with Dr. Marry Kellogg at 12:[address] Kellogg, hospitalist accepts a dmission to observation. 03/04/24 00:47 63-year-old male presents to our ED with acute onset abdominal pain that started approximately 2 hours prior to arrival. Physical exam reveals a distended tend er abdomen. CT scan reveals a bowel obstruction at the level of the ileocecal valve. There is a panniculitis observed as well. Case discussed with Dr. Jose Subramanian general surgery who accepts consultation. We will place an NG tube and start antibiotics. Patient is NPO. Case discussed with hospitalist who accepts admission to observation. Plan of care discussed with patient. He agrees to admission [facility] for further evaluation and treatment. [facility] We contacted the [facility] prior to admission. [facility] is currently unable to accept our patient so they gave us the okay to admit patient to our facility. Please see RN note for details Complexity problem addressed is moderate acute complicated. No critical care time. Complex of data reviewed and analyzed is extensive. Test ordered test reviewed results analyzed and correlated clinically with history and physical examination. Management discussed with general surgeon as well as hospitalist. Risk of complication and or risk of morbidity/mortality of patient management is high. Patient requires hospitalization for further evaluation and treatment. Vital stable. Time spent admit patient is approximately 20 minutes. Plan of care established for shared decision making. No social determinants of health present impede follow-up. Portions of this note were created with voice recognition technology. There may be grammatical, spelling, punctuation or sound alike errors 03/04/24 00:[address] Bridget Palomares Will see patient in: hospital (observation) Counseled pt/family regarding: lab results, diagnosis, rad results - Departure Departure Disposition: Observation Clinical Impression: Mesenteric panniculitis, Acute intestinal obstruction, Abdominal pain, Leukocytosis Condition: Stable Critical Care Time: No Referrals: [facility] [Primary Care Provider] - Follow up/PCP as directed
--- NOTE | 2024-03-03 23:35 | XRAY ---
CLINICAL HISTORY: pain COMPARISON: Previous abdominal X-ray dated 03/23/[address] dated 03/22/2023 were also evaluated. TECHNIQUE: CT scan of the abdomen and pelvis was performed without IV contrast. Coronal and sagittal reconstructions were also obtained. One of the following dose reduction techniques was utilized for this exam: Automated exposure control, adjustment of the mA and/or kV according to patient size, and use of iterative reconstruction. FINDINGS: Stomach is distended with food particles. Fluid filled small bowel loops are seen in the centre of abdomen with a maximum diameter of 3.3 cm in distal ileal bowel loops. Surgical jyoti are noted in right hypochondrium in small bowel loops which is filled with fecal matter. No recurrent soft tissue thickening is noted at site of surgery. The point of transition appears to be near ileocaecal valve. Large right sided bowel loops are filled with fecal matter. Left sided large bowel loops show mildly edematous briones and appear collapsed. Mesentery appears edematous with fat stranding. A clear halo is noted along the mesenteric vessels. No significant mass effect is noted along the surrounding viscera. Liver is normal in size and shape and with regular margins. It measures 16.5 cm.No focal or diffuse parenchymal abnormality. No hepatic mass is identified. The portal vein, intrahepatic biliary radicals and the bile ducts are normal. Gall bladder appears normal with wall thickness. No radio opaque calculus or pericholecystic fluid identified. Common bile duct appears normal. Pancreas appears normal. No peripancreatic fat stranding, pancreatic pseudocyst or peripancreatic fluid collection. Spleen normal in size, no mass seen. Both adrenal glands are unremarkable. 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 There is cortical thinning along the upper pole with a surgical suture. Right kidney is normal in size, shape and orientation. No calculi, cyst mass or hydronephrosis seen on either side. Both ureters and urinary bladder appear normal. Appendix is unremarkable. Pelvic viscera show normal morphology. No evidence of significant enlargement of the mesenteric or retroperitoneal lymph nodes. Visualized thoracic and lumbar spine show marked degenerative changes. No lytic or sclerotic lesions in visualized bones. Mild scoliotic deformity is noted with convexity to left. Visualized lung bases are unremarkable. No pleural or pericardial effusion seen. IMPRESSION: 1. Fluid filled small bowel loops are seen in the centre of abdomen with a maximum diameter of 3.3 cm in distal ileal bowel loops. Surgical jyoti are noted in in right hypochondrium in small bowel loops which is filled with fecal matter. No recurrent soft tissue thickening is noted at site of surgery. The point of transition appears to be near ileocaecal valve. No free air is noted at time of scan. These findings are concerning for acute intestinal obstruction. The surgical jyoti were not visualized in previous CT dated 03/22/2023. Complete history and clinical correlation is recommended to rule out new development of acute intestinal obstruction likely due to adhesions. 2. Mesentery appears edematous with fat stranding. A clear halo is noted along the mesenteric vessels. No significant mass effect is noted along the surrounding viscera. These findings might reprsent mesenteric panniculitis. Please correlate clinically. [facility] ER was called at [phone] at 11:28 PM EST, 03/03/2024 and results were verbally communicated to Dr. Butts. Electronically Signed by: Michelle Rice MD. (03/03/2024 23:31:47 EDT)
--- NOTE | 2024-03-04 00:51 | PCM.HP ---
History of Present Illness - Chief Complaint Chief Complaint: Acute intestinal obstruction History of Present Illness: is a 63 year old male with history of small bowel obstruction requiring surgery who now presents with acute abdominal pain, nausea, vomiting and found to have an acute intestinal obstruction with fluid filled small bowel loops seen with a max diamter of 3.3 cm. Surgery evaluated pt and wants to admit as well. - Review of Systems Constitutional: No Fever, No Chills Eyes: No Symptoms Ears, Nose, & Throat: No Symptoms Respiratory: No Cough, No Short Of Breath Cardiac: No Chest Pain, No Edema, No Syncope Abdominal/Gastrointestinal: No Abdominal Pain, No Nausea, No Vomiting, No Diarrhea Genitourinary Symptoms: No Dysuria Musculoskeletal: No Back Pain, No Neck Pain Skin: No Rash Neurological: No Dizziness, No Focal Weakness, No Sensory Changes Psychological: No Symptoms Endocrine: No Symptoms Hematologic/Lymphatic: No Symptoms Immunological/Allergic: No Symptoms Medications & Allergies Home Medications: Home Medication List Atorvastatin Calcium [Lipitor] 40 mg PO HS 11/05/20 [History Confirmed 03/22/23] Folic Acid 1 mg PO HS 11/05/20 [History Confirmed 03/22/23] Omeprazole Magnesium [Prilosec] 20 mg PO DAILY 11/05/20 [History Confirmed 03/22/23] Tamsulosin HCl 0.4 mg [Flomax 0.4 MG] 0.8 mg PO HS 11/05/20 [History Confirmed 03/22/23] Calcium Polycarbophil 625 mg [Fibercon 625 mg] 625 mg PO DAILY 03/15/23 [History Confirmed 03/22/23] Fexofenadine HCl [Sherri Allergy] 180 mg PO DAILY 03/15/23 [History Confirmed 03/22/23] Lidocaine 1 each TP DAILY PRN PRN 03/15/23 [History Confirmed 03/22/23] Meloxicam 15 mg [Meloxicam 15 MG] 15 mg PO DAILY 03/15/23 [History Confirmed 03/22/23] Methotrexate Sodium 2.5 mg [Trexall 2.5 mg] 15 mg PO WEEKLY 03/15/23 [History Confirmed 03/22/23] Gabapentin [Neurontin ] 300 mg PO BID 03/22/23 [History Confirmed 03/22/23] Loperamide HCl 2 mg [Imodium 2 mg] 2 mg PO DAILY PRN PRN 03/22/23 [History Confirmed 03/22/23] Sertraline HCl 50 mg [Zoloft 50 mg Tablet] 50 mg PO DAILY 03/22/23 [History Confirmed 03/22/23] buPROPion HCL [Wellbutrin Xl] 300 mg PO QAM 03/22/23 [History Confirmed 03/22/23] Allergies/Adverse Reactions: Allergies Allergy/AdvReac Type Severity Reaction Status Date / Time No Known Drug Allergies Allergy Verified 03/03/24 22:16 - Past Medical History Past Medical History: Yes Neurological History: Other Cardiac History: High Cholesterol, Hypertension Respiratory History: No Pertinent History Endocrine Medical History: No Pertinent History Musculoskelatal History: Degenerative Disk Disease History: Kidney Cancer Pyscho-Social History: Anxiety, Depression Male Reproductive Disorders: Prostate Problems Comment: Cluster Headaches, Fx Left Wrist, Hx of surgery for nasal defect, hx ear surgery, 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 small bowel resection appy - Social History Smoking Status: Current every day smoker How long have you smoked: 45 years Exposure to second hand smoke: Yes Alcohol: None Drug Use: none - Social Determinants of Health Will the patient participate in the screening: Declined to provide - Physical Exam Vital Signs: Vital Signs - 24 hr Temp Pulse Resp BP BP Pulse Ox 03/04/24 00:30 62 22 149/83 94 L 03/04/24 00:02 100 03/04/24 00:00 63 14 159/77 95 03/03/24 23:30 62 14 159/74 94 L 03/03/24 23:00 59 L 15 164/73 95 03/03/24 22:34 54 L 19 187/81 94 L 03/03/24 22:02 55 L 14 174/88 03/03/24 21:56 97.4 F 65 18 174/88 100 Results - Labs Lab/Micro Results: Lab Results-Last 24 Hours 05/29/24 05/29/24 05/29/24 Range/Units 22:00 22:00 22:00 WBC 12.9 H (4.0-10.5) x10^3/uL RBC 4.84 (4.1-5.6) x10^6/uL Hgb 15.2 (12.5-18.0) g/dL Hct 43.8 (42-50) % MCV 90.5 (78-100) fL MCH 31.4 (26-32) pg MCHC 34.7 (32-36) g/dL RDW 14.3 H (11.5-14.0) % Plt Count 210 (150-450) x10^3/uL MPV 10.9 (7.5-11.0) fL Gran % 77.2 H (36.0-66.0) % Immature Gran % (Auto) 0.3 (0.00-0.4) % Nucleat RBC Rel Count 0.0 (0.00-0.1) % Eos # (Auto) 0.18 (0-0.5) x10^3/uL Immature Gran # (Auto) 0.04 H (0.00-0.03) x10^3u/L Absolute Lymphs (auto) 1.82 (1.0-4.6) x10^3/uL Absolute Monos (auto) 0.85 (0.0-1.3) x10^3/uL Absolute Nucleated RBC 0.00 (0.00-0.01) x10^3u/L Lymphocytes % 14.1 L (24.0-44.0) % Monocytes % 6.6 (0.0-12.0) % Eosinophils % 1.4 (0.00-5.0) % Basophils % 0.4 (0.0-0.4) % Absolute Granulocytes 9.96 H (1.4-6.9) x10^3/uL Basophils # 0.05 (0-0.4) x10^3/uL Sodium 137 (135-145) mmol/L Potassium 4.3 (3.5-5.1) mmol/L Chloride 107 (98-107) mmol/L Carbon Dioxide 19 L (22-30) mmol/L Anion Gap 15.3 H (5-15) MEQ/L BUN 13 (9-20) mg/dL Creatinine 1.09 (0.66-1.25) mg/dL Estimated GFR 76.3 ML/MIN Glucose 131 H (74-106) mg/dL Calcium 9.8 (8.4-10.2) mg/dL Total Bilirubin 0.60 (0.2-1.3) mg/dL AST 21 (17-59) U/L ALT 19 (0-50) U/L Alkaline Phosphatase 125 (38-126) U/L Troponin I < 0.012 (0.000-0.033) ng/mL Serum Total Protein 7.9 (6.3-8.2) g/dL Albumin 4.8 (3.5-5.0) g/dL Lipase 141 (23-300) U/L - Radiology Impressions Radiology Exams & Impressions: Radiology Procedures Category Date Time Status ABDOMEN AND PELVIS W/0 CONTRAS [CT] Stat Exams 03/03/24 21:59 Completed Assessment/Plan (1) Acute intestinal obstruction Current Visit: Yes Status: Acute Assessment & Plan: 1. NPO 2. IVF 3. Bowel rest, NG tube to be placed in ED Code(s): K56.609 - UNSP INTESTNL OBST, UNSP TO PARTIAL VERSUS COMPLETE OBST Telemedicine Encounter - Telemedicine Encounter Telemedicine Encounter: The entirety of this encounter was performed via Telemedicine"
[2024-03-04] MEDS ORDERED: PIPERACILLIN/TAZOBACTAM IV ONE (00:53)
[2024-03-04] MEDS ORDERED: MORPHINE SULFATE 4 MG INJ ONE (00:53)
[2024-03-04] MEDS ORDERED: Sodium Chloride 100ML MINI-BAG PLUS 100 ML IV ONE (00:54)
[2024-03-04] MEDS: Sodium Chloride 0.9% 1000 ML 1,000 ML IV SCH (01:04)
[2024-03-04] MEDS: PIPERACILLIN/TAZOBACTAM 3.375 GM in Sodium Chloride 100ML MINI-BAG PLUS 100 ML IV ONE (01:04)
[2024-03-04] MEDS: MORPHINE SULFATE 4 MG INJ IV ONE (01:05)
[2024-03-04 01:40] LABS: Appearance Clear (Clear); Bacteria None Seen /HPF (None Seen); Bilirubin Negative (Negative); Blood Negative (Negative); Epithelial Cells None Seen /HPF (None Seen); Glucose, Urine Negative (Negative); Hyaline Casts NONE SEEN /LPF (0-2); Ketones Negative (Negative); Leukocyte Esterase Trace (Negative); Nitrite Negative (Negative); Ph 7.5 (4.6-8.0); Protein,Urine Dip Negative (Negative); RBC 0-2 /HPF (0-5); WBC 0-2 /HPF (0-5)
[2024-03-04 01:42] LABS: ADD URINE CULTURE? NO (NO)
[2024-03-04] MEDS: MORPHINE SULFATE 4 MG INJ IV PRN (05:13)
[2024-03-04] MEDS: Zofran 4 MG/2 ML VIAL IV PRN (05:17)
[2024-03-04 07:44] LABS: Absolute Neutrophil Ct (ANC) 9.06 x10^3/uL (1.4-6.9); BASOPHIL % 0.2 % (0.0-0.4); Basophil (Absolute #) 0.02 x10^3/uL (0-0.4); Eosinophil % 0.2 % (0.00-5.0); Eosinophil (Absolute #) 0.02 x10^3/uL (0-0.5); Hematocrit 43.4 % (42-50); Hemoglobin 14.8 g/dL (12.5-18.0); IMMATURE GRAN # 0.02 x10^3u/L (0.00-0.03); IMMATURE GRAN % 0.2 % (0.00-0.4); Lymphocyte (Absolute #) 0.54 x10^3/uL (1.0-4.6); Lymphocytes % 5.3 % (24.0-44.0); Mean Corpuscular Hemoglobin 32.4 pg (26-32); Mean Corpuscular Hgb Concent. 34.1 g/dL (32-36); Mean Platelet Volume 11.8 fL (7.5-11.0); Monocyte (Absolute #) 0.53 x10^3/uL (0.0-1.3); Monocytes % 5.2 % (0.0-12.0); Neutrophil % 88.9 % (36.0-66.0); Platelet Count 174 x10^3/uL (150-450); Red Blood Count 4.57 x10^6/uL (4.1-5.6); Red Cell Distribution Width 14.8 % (11.5-14.0); White Blood Count 10.2 x10^3/uL (4.0-10.5)
[2024-03-04 07:57] LABS: ALBUMIN 4.3 g/dL (3.5-5.0); ANION GAP 13.2 MEQ/L (5-15); BILIRUBIN,TOTAL 0.6 mg/dL (0.2-1.3); Creatinine 1 1.05 mg/dL (0.66-1.25); EST GLOMERULAR FILTRATION RATE 79.8 ML/MIN; Total Protein 7.2 g/dL (6.3-8.2)
[2024-03-04 08:19] LABS: Potassium 5.2 mmol/L (3.5-5.1)
[2024-03-04 08:23] LABS: Slide Review 1 YES
[2024-03-04] MEDS: PROTONIX 40 MG IV IV SCH (08:47)
[2024-03-04] MEDS: solu-MEDROL 40 MG, Sterile H2O 10 ml 1 ML IV SCH (08:47)
--- NOTE | 2024-03-04 08:58 | XRAY ---
Indication: Short of breath. Wheezing. Comparison: March 15, 2023 Portable chest remains hyperinflated and clear with incidental tiny left base calcified granuloma. Heart not enlarged. Bony thorax intact again with mild degenerative changes. Impression: Continued nonacute hyperinflated chest with chronic features.
--- NOTE | 2024-03-04 16:02 | PCM.NOTE ---
Mr. Urbina is a 63 year old male admitted 03/04/24 for an acute intestinal obstruction after experiencing acute abdominal pain and nausea at home. CT abdomen concerning for acute intestinal obstruction. Mesentery appears edematous with fat stranding. A clear halo is noted along the mesenteric vessels. No significant mass effect is noted along the surrounding viscera. These findings might reprsent mesenteric panniculitis. Lab findings showing leukocytosis initially but now WNL, metabolic acidosis- improved today, and albert/lipase WNL. Patient does have history of bowel obstruction with small bowel resection. Patient endorses abdominal pain has improved. Patient is noted with exp wheezing throughout on lung auscultation. Solu-medrol added. Plan for continued bowel rest. Conservative vs surgical intervention pending surgery recommendations. Last BM 03/03/24. No flatus. BS x 4 quads. Denies fever, TAVERAS, dizziness, N/V/D.
[2024-03-04 16:34] LABS: ALBUMIN 4.4 g/dL (3.5-5.0); ANION GAP 11.3 MEQ/L (5-15); BILIRUBIN,TOTAL 0.5 mg/dL (0.2-1.3); Calcium 8.7 mg/dL (8.4-10.2); Creatinine 1 1.04 mg/dL (0.66-1.25); EST GLOMERULAR FILTRATION RATE 80.7 ML/MIN; Potassium 5.1 mmol/L (3.5-5.1); Total Protein 7.2 g/dL (6.3-8.2)
[2024-03-05 04:59] LABS: Absolute Neutrophil Ct (ANC) 10.83 x10^3/uL (1.4-6.9); BASOPHIL % 0.1 % (0.0-0.4); Basophil (Absolute #) 0.01 x10^3/uL (0-0.4); Eosinophil % 0.1 % (0.00-5.0); Eosinophil (Absolute #) 0.01 x10^3/uL (0-0.5); Hematocrit 40.9 % (42-50); Hemoglobin 13.6 g/dL (12.5-18.0); IMMATURE GRAN # 0.03 x10^3u/L (0.00-0.03); IMMATURE GRAN % 0.3 % (0.00-0.4); Lymphocyte (Absolute #) 0.46 x10^3/uL (1.0-4.6); Mean Cell Volume 95.6 fL (78-100); Mean Corpuscular Hemoglobin 31.8 pg (26-32); Mean Corpuscular Hgb Concent. 33.3 g/dL (32-36); Mean Platelet Volume 11.8 fL (7.5-11.0); Monocyte (Absolute #) 0.25 x10^3/uL (0.0-1.3); Monocytes % 2.2 % (0.0-12.0); NUCLEATED RBC # 0.03 x10^3u/L (0.00-0.01); NUCLEATED RBC % 0.3 % (0.00-0.1); Neutrophil % 93.3 % (36.0-66.0); Platelet Count 169 x10^3/uL (150-450); Red Blood Count 4.28 x10^6/uL (4.1-5.6); Red Cell Distribution Width 14.5 % (11.5-14.0); White Blood Count 11.6 x10^3/uL (4.0-10.5)
[2024-03-05 05:22] LABS: ALBUMIN 3.8 g/dL (3.5-5.0); ANION GAP 9.7 MEQ/L (5-15); BILIRUBIN,TOTAL 0.6 mg/dL (0.2-1.3); Calcium 8.7 mg/dL (8.4-10.2); Creatinine 1 0.9 mg/dL (0.66-1.25); Total Protein 6.3 g/dL (6.3-8.2)
[2024-03-05 07:33] LABS: Slide Review 1 YES
--- NOTE | 2024-03-05 08:26 | CONS ---
CONSULT DATE: 03/04/2024 HISTORY: Bob Urbina is well-known to myself. 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 I have reviewed his history with him. He is a . He does get a substantial amount of care at the [facility] over the years. He is up-to-date on his colonoscopy, it has been a few years ago but it is still up-to-date at the [facility]. He has had quite a bit of hearing issues post- and he is up-to-date on those visitations. 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 He has remained totally cured and in complete remission from this tumor sized cancer. Eleven months ago, he underwent a small bowel exploration and resection by Dr. Jayme bey at [facility]. His postoperative course was uneventful. This is the second course in one year. He has had no issues but with his first episode he was getting some cramps and pain from his right upper quadrant radiating down almost to his right testicle. He presented to the ER here. He did have some nausea, queasiness. CT suggests partial small bowel obstruction. He was admitted. IV fluids were started, IV medication and GI rest. He is seen today about 20 hours after admission. He is not having much pain. He is hungry. He is thirsty. He has mild abdominal distension. He has no peritoneal signs. IMPRESSION: It certainly seems like he is having a recurrent episode of partial small bowel obstruction. This episode does not seem to be as bad as the first. We will go ahead and get a small bowel follow through tomorrow to see if there is any hang up at all. I certainly think this is less steric factor and we hopefully will get through this without surgical intervention.
--- NOTE | 2024-03-05 12:45 | PCM.NOTE ---
Date and Time: 03/05/24 1240 Subjective Assessment: Mr. Urbina is a 63 year old male admitted 03/04/24 for an acute intestinal obstruction after experiencing acute abdominal pain and nausea at home. CT abdomen concerning for acute intestinal obstruction. Mesentery appears edematous with fat stranding. A clear halo is noted along the mesenteric vessels. No significant mass effect is noted along the surrounding viscera. These findings might reprsent mesenteric panniculitis. Lab findings showing leukocytosis initially but now WNL, metabolic acidosis- impro chanda today, and albert/lipase WNL. Patient does have history of bowel obstruction with small bowel resection. Patient endorses abdominal pain has improved. No nausea/vomiting. Lung sounds with exp wheezing, has improved. Solu-medrol added which will help with panniculitis as well. Last BM 03/03/24. No flatus. BS x 4 quads. Denies fever, TAVERAS, dizziness, N/V/D. Surgery consulted - note reviewed, small bowel follow through scheduled for today. - Review of Systems Constitutional: No Symptoms Eyes: No Symptoms Ears, Nose, & Throat: No Symptoms Respiratory: Short Of Breath, Wheezing Cardiac: No Symptoms Abdominal/Gastrointestinal: No Symptoms Genitourinary Symptoms: No Symptoms Musculoskeletal: No Symptoms Skin: No Symptoms Neurological: No Symptoms Psychological: No Symptoms Endocrine: No Symptoms Hematologic/Lymphatic: No Symptoms Immunological/Allergic: No Symptoms Objective Exam General Appearance: no apparent distress Neurologic Exam: alert, oriented x 3, cooperative Skin Exam: normal color Eye Exam: PERRL Ears, Nose, Throat Exam: normal ENT inspection Neck Exam: normal inspection Respiratory Exam: wheezing Cardiovascular Exam: regular rate/rhythm, normal heart sounds Gastrointestinal/Abdomen Exam: soft, normal bowel sounds Extremity Exam: normal inspection Back Exam: normal inspection Male Genitalia Exam: deferred Rectal Exam: deferred Objective Data Vital Signs: Vital Signs - 24 hr Temp Pulse Resp BP Pulse Ox 03/05/24 07:12 97.7 F 55 L 16 136/71 96 03/05/24 07:11 96 03/05/24 04:00 97.7 F 57 L 18 142/75 99 03/05/24 01:33 65 03/05/24 00:00 97.9 F 65 16 147/74 98 03/04/24 21:19 96 03/04/24 20:00 98.5 F 61 17 151/78 98 03/04/24 16:00 97.6 F 55 L 16 154/77 91 L Pain Assessment - Last Documented Pain Intensity 2 Pain Scale Used 0-10 Pain Scale,FLACC Intake and Output: Intake & Output 03/03/24 03/04/24 03/05/24 03/06/24 11:59 11:59 11:59 11:59 Intake Total 0 2733 Output Total 3150 Balance 0 -417 Weight 76.4 kg 75.4 kg Lab Results: Lab Results-Last 24 Hours 03/04/24 03/05/24 03/05/24 Range/Units 16:09 04:07 04:07 WBC 11.6 H (4.0-10.5) x10^3/uL RBC 4.28 (4.1-5.6) x10^6/uL Hgb 13.6 (12.5-18.0) g/dL Hct 40.9 L (42-50) % MCV 95.6 (78-100) fL MCH 31.8 (26-32) pg MCHC 33.3 (32-36) g/dL RDW 14.5 H (11.5-14.0) % Plt Count 169 (150-450) x10^3/uL MPV 11.8 H (7.5-11.0) fL Gran % 93.3 H (36.0-66.0) % Immature Gran % (Auto) 0.3 (0.00-0.4) % Nucleat RBC Rel Count 0.3 H (0.00-0.1) % Eos # (Auto) 0.01 (0-0.5) x10^3/uL Immature Gran # (Auto) 0.03 (0.00-0.03) x10^3u/L Absolute Lymphs (auto) 0.46 L (1.0-4.6) x10^3/uL Absolute Monos (auto) 0.25 (0.0-1.3) x10^3/uL Absolute Nucleated RBC 0.03 H (0.00-0.01) x10^3u/L Lymphocytes % 4.0 L (24.0-44.0) % Monocytes % 2.2 (0.0-12.0) % Eosinophils % 0.1 (0.00-5.0) % Basophils % 0.1 (0.0-0.4) % Absolute Granulocytes 10.83 H (1.4-6.9) x10^3/uL Basophils # 0.01 (0-0.4) x10^3/uL Sodium 137 134 L (135-145) mmol/L Potassium 5.1 5.0 (3.5-5.1) mmol/L Chloride 107 109 H (98-107) mmol/L Carbon Dioxide 24 21 L (22-30) mmol/L Anion Gap 11.3 9.7 (5-15) MEQ/L BUN 12 14 (9-20) mg/dL Creatinine 1.04 0.90 (0.66-1.25) mg/dL Estimated GFR 80.7 96.0 ML/MIN Glucose 118 H 125 H (74-106) mg/dL Calcium 8.7 8.7 (8.4-10.2) mg/dL Total Bilirubin 0.50 0.60 (0.2-1.3) mg/dL AST 18 18 (17-59) U/L ALT 17 15 (0-50) U/L Alkaline Phosphatase 105 87 (38-126) U/L Serum Total Protein 7.2 6.3 (6.3-8.2) g/dL Albumin 4.4 3.8 (3.5-5.0) g/dL Slides for Path Review YES Radiology Exams: Radiology Procedures Category Date Time Status ABDOMEN AND PELVIS W/0 CONTRAS [CT] Stat Exams 03/03/24 21:59 Completed CHEST 1 VIEW (PORTABLE) Stat Exams 03/04/24 08:22 Completed SMALL BOWEL FOLLOWING UGI Routine Exams 03/05/24 08:00 Ordered UPPER GI W/AIR Routine Exams 03/05/24 08:00 Taken Multi-Disciplinary Progress Notes: Multi-Disciplinary Progress Notes 03/05/24 11:22 Case Management Note by Klaudia Garcia S/W PATIENT- HE CONTINUES TO DENY ANY NEW NEEDS AT TIME OF DC. HE PLANS TO DC HOME TO HIS PLF AT TIME OF DC Initialized on 03/05/24 11:22 - END OF NOTE Assessment/Plan (1) Acute intestinal obstruction Current Visit: Yes Status: Acute Assessment & Plan: -CT reviewed and concerning for acute intestinal obstruction -Surgery consulted, small bowel follow through scheduled for today -Nausea/vomiting has resolved, no abdominal distention, last BM 03/03/24, - Flatus, NG tube not placed -Continue bowel rest, -IVF -NPO NG if recurrent vomiting/abdominal distention Code(s): K56.609 - UNSP INTESTNL OBST, UNSP TO PARTIAL VERSUS COMPLETE OBST (2) Hyponatremia Current Visit: Yes Status: Acute Assessment & Plan: -Mild, continue IVF Code(s): E87.1 - HYPO-OSMOLALITY AND HYPONATREMIA (3) Leukocytosis Current Visit: Yes Status: Acute Assessment & Plan: -Most likely reactive from vomiting/steroid, will monitor Code(s): D72.829 - ELEVATED WHITE BLOOD CELL COUNT, UNSPECIFIED (4) Mesenteric panniculitis Current Visit: Yes Status: Acute Assessment & Plan: -As demonstrated on CT -Continue solu-medrol Code(s): K65.4 - SCLEROSING MESENTERITIS
--- NOTE | 2024-03-05 15:05 | XRAY ---
Indication: Abdominal pain. Comparison: None Double contrast upper GI exam performed. Patient ingested barium without miss swallow or aspiration. Midesophagus demonstrates short segment of eccentric curvilinear mucosal irregularity that warrants additional workup. Elsewhere no focal stricture, obstruction, or filling defect. Barium freely empties into the stomach. No hiatal hernia or gastroesophageal reflux demonstrated. Stomach is normally distended. Contours of the lesser and greater curvature appears smooth. No acute ulceration or filling defect. Normal appearing duodenal cap and sweep. Impression: 1. Mid esophageal eccentric mucosal irregularity. Endoscopy may yield further information. 2. Remaining double contrast upper GI exam is negative. 3. Approximately 1.4 minute fluoroscopy used.
--- NOTE | 2024-03-05 16:27 | XRAY ---
Indication: Abdomen pain. Small bowel obstruction. Preliminary glass calibrator abdomen appears nonacute and nonobstructed. No focal bowel dilatation or free air. Right mid abdomen demonstrates suture material. Left mid kidney demonstrates tiny surgical clip. Osseous structures intact with moderate degenerative changes throughout spine. Small bowel follow-through exam was performed following upper GI exam. Patient refused further ingestion of barium due to discomfort. Multiple delayed overhead radiographs obtained. There is slow antegrade movement of the barium to the level of proximal transverse colon within 4 hours. No focal stricture, obstruction, bowel dilatation, or inflammatory changes. Impression: Slow small bowel follow-through. Negative for obstruction.
[2024-03-05] MEDS: Flomax 0.4 MG PO SCH (22:02)
[2024-03-05] MEDS: NEURONTIN PO SCH (22:03)
[2024-03-05] MEDS: NON-FORMULARY ITEM (Atorvastatin Calcium [Lipitor] 20 MG Tablet) PO SCH (22:55)
[2024-03-06 06:07] LABS: Absolute Neutrophil Ct (ANC) 10.17 x10^3/uL (1.4-6.9); BASOPHIL % 0.1 % (0.0-0.4); Basophil (Absolute #) 0.01 x10^3/uL (0-0.4); Eosinophil % 0.1 % (0.00-5.0); Eosinophil (Absolute #) 0.01 x10^3/uL (0-0.5); Hematocrit 40.3 % (42-50); Hemoglobin 13.6 g/dL (12.5-18.0); IMMATURE GRAN # 0.04 x10^3u/L (0.00-0.03); IMMATURE GRAN % 0.4 % (0.00-0.4); Lymphocyte (Absolute #) 0.71 x10^3/uL (1.0-4.6); Lymphocytes % 6.3 % (24.0-44.0); Mean Cell Volume 92.9 fL (78-100); Mean Corpuscular Hemoglobin 31.3 pg (26-32); Mean Corpuscular Hgb Concent. 33.7 g/dL (32-36); Mean Platelet Volume 11.5 fL (7.5-11.0); Monocyte (Absolute #) 0.38 x10^3/uL (0.0-1.3); Monocytes % 3.4 % (0.0-12.0); Neutrophil % 89.7 % (36.0-66.0); Platelet Count 172 x10^3/uL (150-450); Red Blood Count 4.34 x10^6/uL (4.1-5.6); Red Cell Distribution Width 14.1 % (11.5-14.0); White Blood Count 11.3 x10^3/uL (4.0-10.5)
[2024-03-06 06:21] LABS: ANION GAP 11.8 MEQ/L (5-15); BILIRUBIN,TOTAL 0.4 mg/dL (0.2-1.3); Calcium 9.2 mg/dL (8.4-10.2); Creatinine 1 0.95 mg/dL (0.66-1.25); EST GLOMERULAR FILTRATION RATE 89.9 ML/MIN; Potassium 4.5 mmol/L (3.5-5.1); Total Protein 6.8 g/dL (6.3-8.2)
--- NOTE | 2024-03-06 08:08 | PCM.NOTE ---
Date and Time: 03/06/24804 Subjective Assessment: Mr. Urbina is a 63 year old male admitted 03/04/24 for an acute intestinal obstruction after experiencing acute abdominal pain and nausea at home. CT abdomen concerning for acute intestinal obstruction. Mesentery appears edematous with fat stranding. A clear halo is noted along the mesenteric vessels. No significant mass effect is noted along the surrounding viscera. These findings might reprsent mesenteric panniculitis. Lab findings showing leukocytosis initially but now WNL, metabolic acidosis- impro chanda today, and albert/lipase WNL. Patient does have history of bowel obstruction with small bowel resection. Patient endorses abdominal pain has improved. No nausea/vomiting. Lung sounds with exp wheezing, has improved. Solu-medrol added which will help with panniculitis as well. Last BM 03/03/24. No flatus. BS x 4 quads. Denies fever, TAVERAS, dizziness, N/V/D. Surgery consulted - note reviewed, small bowel follow through scheduled and negative for obstruction. Rad-upper GI series recommending EGD due to esophageal irregularity. Patient started CLD. Objective Data Vital Signs: Vital Signs - 24 hr Temp Pulse Resp BP Pulse Ox 03/06/24 07:18 98 03/06/24 04:00 97.8 F 65 20 127/63 98 03/05/24 23:50 98.1 F 60 18 158/75 97 03/05/24 20:00 98.7 F 60 20 151/76 99 03/05/24 19:18 96 03/05/24 16:00 97.9 F 56 L 16 148/72 95 03/05/24 12:00 97.9 F 60 16 164/74 98 Pain Assessment - Last Documented Pain Intensity 2 Pain Scale Used 0-10 Pain Scale,FLACC Intake and Output: Intake & Output 03/03/24 03/04/24 03/05/24 03/06/24 11:59 11:59 11:59 11:59 Intake Total 0 2733 3616 Output Total 3150 2650 Balance 0 -417 966 Weight 76.4 kg 75.4 kg 75.2 kg Lab Results: Lab Results-Last 24 Hours 03/05/24 03/06/24 03/06/24 Range/Units 04:07 05: 05:24 WBC 11.3 H (4.0-10.5) x10^3/uL RBC 4.34 (4.1-5.6) x10^6/uL Hgb 13.6 (12.5-18.0) g/dL Hct 40.3 L (42-50) % MCV 92.9 (78-100) fL MCH 31.3 (26-32) pg MCHC 33.7 (32-36) g/dL RDW 14.1 H (11.5-14.0) % Plt Count 172 (150-450) x10^3/uL MPV 11.5 H (7.5-11.0) fL Gran % 89.7 H (36.0-66.0) % Immature Gran % (Auto) 0.4 (0.00-0.4) % Nucleat RBC Rel Count 0.0 (0.00-0.1) % Eos # (Auto) 0.01 (0-0.5) x10^3/uL Immature Gran # (Auto) 0.04 H (0.00-0.03) x10^3u/L Absolute Lymphs (auto) 0.71 L (1.0-4.6) x10^3/uL Absolute Monos (auto) 0.38 (0.0-1.3) x10^3/uL Absolute Nucleated RBC 0.00 (0.00-0.01) x10^3u/L Lymphocytes % 6.3 L (24.0-44.0) % Monocytes % 3.4 (0.0-12.0) % Eosinophils % 0.1 (0.00-5.0) % Basophils % 0.1 (0.0-0.4) % Absolute Granulocytes 10.17 H (1.4-6.9) x10^3/uL Basophils # 0.01 (0-0.4) x10^3/uL Sodium 135 (135-145) mmol/L Potassium 4.5 (3.5-5.1) mmol/L Chloride 104 (98-107) mmol/L Carbon Dioxide 24 (22-30) mmol/L Anion Gap 11.8 (5-15) MEQ/L BUN 18 (9-20) mg/dL Creatinine 0.95 (0.66-1.25) mg/dL Estimated GFR 89.9 ML/MIN Glucose 139 H (74-106) mg/dL Hemoglobin A1c 5.56 (4.5-6.0) % Calcium 9.2 (8.4-10.2) mg/dL Total Bilirubin 0.40 (0.2-1.3) mg/dL AST 20 (17-59) U/L ALT 17 (0-50) U/L Alkaline Phosphatase 85 (38-126) U/L Serum Total Protein 6.8 (6.3-8.2) g/dL Albumin 4.0 (3.5-5.0) g/dL Radiology Exams: Radiology Procedures Category Date Time Status CHEST 1 VIEW (PORTABLE) Stat Exams 03/04/24 08:22 Completed SMALL BOWEL FOLLOWING UGI Routine Exams 03/05/24 08:00 Completed UPPER GI W/AIR Routine Exams 03/05/24 08:00 Completed Multi-Disciplinary Progress Notes: Multi-Disciplinary Progress Notes 03/05/24 11:22 Case Management Note by Klaudia Garcia S/W PATIENT- HE CONTINUES TO DENY ANY NEW NEEDS AT TIME OF DC. HE PLANS TO DC HOME TO HIS PLF AT TIME OF DC Initialized on 03/05/24 11:22 - END OF NOTE Assessment/Plan (1) Acute intestinal obstruction Current Visit: Yes Status: Acute Assessment & Plan: -CT reviewed and concerning for acute intestinal obstruction -Surgery consulted, small bowel follow through scheduled for today -Nausea/vomiting has resolved, no abdominal distention, last BM 03/03/24, - Flatus, NG tube not placed -Continue bowel rest, -IVF -NPO NG if recurrent vomiting/abdominal distention 03/06/24: -Small bowel follow through negative for obstruction -Upper GI series recommending EGD due to mucosal irregularity in the esophagus - surgery following -CLD diet started Code(s): K56.609 - UNSP INTESTNL OBST, UNSP TO PARTIAL VERSUS COMPLETE OBST (2) Hyponatremia Current Visit: Yes Status: Acute Assessment & Plan: -Mild, continue IVF 03/06/24: -Resolved Code(s): E87.1 - HYPO-OSMOLALITY AND HYPONATREMIA (3) Leukocytosis Current Visit: Yes Status: Acute Assessment & Plan: -Most likely reactive from vomiting/steroid, will monitor Code(s): D72.829 - ELEVATED WHITE BLOOD CELL COUNT, UNSPECIFIED (4) Mesenteric panniculitis Current Visit: Yes Status: Acute Assessment & Plan: -As demonstrated on CT -Continue solu-medrol Code(s): K56.609 - UNSP INTESTNL OBST, UNSP TO PARTIAL VERSUS COMPLETE OBST (2) Hyponatremia Current Visit: Yes Status: Acute Code(s): E87.1 - HYPO-OSMOLALITY AND HYPONATREMIA (3) Leukocytosis Current Visit: Yes Status: Acute Code(s): D72.829 - ELEVATED WHITE BLOOD CELL COUNT, UNSPECIFIED (4) Mesenteric panniculitis Current Visit: Yes Status: Acute Code(s): K65.4 - SCLEROSING MESENTERITIS
[2024-03-06] MEDS: ZOLOFT 50 MG TABLET PO SCH (09:58)
[2024-03-06] MEDS: Wellbutrin XL 150 MG PO SCH (09:58)
[2024-03-06] MEDS ORDERED: NON-FORMULARY ITEM (Bupropion Hcl [Wellbutrin Xl] 300 MG Tab.Er.24h) PO SCH (10:00)
--- NOTE | 2024-03-06 13:02 | PCM.DS ---
Discharge Summary Date of Admission: 03/04/24 01:45 Date of Discharge: 03/06/24 Admitting Physician: MERRY BLOUNT MD Consults: Consults on Case 03/04/24 09:41 Consult Surgery ROUTINE Primary Care Provider: [facility] Allergies Allergies No Known Drug Allergies Allergy (Verified 03/03/24 22:16) Hospital Summary - Hospital Course Hospital Course: Mr. Urbina is a 63 year old male admitted 03/04/24 for an acute intestinal obstruction after experiencing acute abdominal pain and nausea at home. CT abdomen concerning for acute intestinal obstruction. Mesentery appears edematous with fat stranding. A clear halo is noted along the mesenteric vessels. No significant mass effect is noted along the surrounding viscera. These findings might reprsent mesenteric panniculitis. Lab findings showing leukocytosis initially but now WNL, metabolic acidosis- resolved, and albert/lipase WNL. Patient does have history of bowel obstruction with small bowel resection. Solu-medrol added for wheezing and panniculitis as well. Will send home with prednisone burst. Surgery consulted - note reviewed, small bowel follow through scheduled and negative for obstruction. Patient +flatus and BM, abdominal pain mostly resolved. He has been cleared by surgery if he tolerates regular diet today. Discharge Note New Diagnosis: SBO New Medications: prednisone Follow Up: PCP Latest Assessment & Plan (1) Acute intestinal obstruction Current Visit: Yes Status: Acute Assessment & Plan: -CT reviewed and concerning for acute intestinal obstruction -Surgery consulted, small bowel follow through scheduled for today -Nausea/vomiting has resolved, no abdominal distention, last BM 03/03/24, - Flatus, NG tube not placed -Continue bowel rest, -IVF -NPO NG if recurrent vomiting/abdominal distention 03/06/24: -Small bowel follow through negative for obstruction -Upper GI series recommending EGD due to mucosal irregularity in the esophagus - surgery following and patient is cleared for discharge if able to tolerate full diet -+Flatus/BM -CLD diet started -advanced to full - Code(s): K56.609 - UNSP INTESTNL OBST, UNSP TO PARTIAL VERSUS COMPLETE OBST (2) Hyponatremia Current Visit: Yes Status: Acute Assessment & Plan: -Mild, continue IVF 03/06/24: -Resolved Code(s): E87.1 - HYPO-OSMOLALITY AND HYPONATREMIA (3) Leukocytosis Current Visit: Yes Status: Acute Assessment & Plan: -Most likely reactive from vomiting/steroid, will monitor Code(s): D72.829 - ELEVATED WHITE BLOOD CELL COUNT, UNSPECIFIED (4) Mesenteric panniculitis Current Visit: Yes Status: Acute Assessment & Plan: -As demonstrated on CT -Continue solu-medrol 03/06/24: -Continue prednisone 20mg bid x 5 days I spent 35 minutes [id number] with the patient on the day of discharge performing discharge exam, discussing hospital stay and discharge instructions with patient and caregivers, preparation of discharge records, prescriptions & referral forms and addressing any questions/concerns the patient had as documented above. - Vitals & Intake/Output Vital Signs: Vital Signs Temperature 97.8 F 03/06/24 12:00 Pulse Rate 62 03/06/24 12:00 Respiratory Rate 16 03/06/24 12:00 Blood Pressure 113/58 03/06/24 12:00 O2 Sat by Pulse Oximetry 91 L 03/06/24 12:00 Intake & Output: Intake & Output 03/04/24 03/05/24 03/06/24 03/07/24 11:59 11:59 11:59 11:59 Intake Total 0 2733 3736 Output Total 3150 3050 Balance 0 -417 686 Weight 76.4 kg 75.4 kg 75.2 kg - Lab Result Diagrams: 03/06/24 05:24 03/06/24 05:24 Lab Results-Last 24 Hrs: Lab Results-Last 24 Hours 03/05/24 03/06/24 03/06/24 Range/Units 04:07 05:24 05:24 WBC 11.3 H (4.0-10.5) x10^3/uL RBC 4.34 (4.1-5.6) x10^6/uL Hgb 13.6 (12.5-18.0) g/dL Hct 40.3 L (42-50) % MCV 92.9 (78-100) fL MCH 31.3 (26-32) pg MCHC 33.7 (32-36) g/dL RDW 14.1 H (11.5-14.0) % Plt Count 172 (150-450) x10^3/uL MPV 11.5 H (7.5-11.0) fL Gran % 89.7 H (36.0-66.0) % Immature Gran % (Auto) 0.4 (0.00-0.4) % Nucleat RBC Rel Count 0.0 (0.00-0.1) % Eos # (Auto) 0.01 (0-0.5) x10^3/uL Immature Gran # (Auto) 0.04 H (0.00-0.03) x10^3u/L Absolute Lymphs (auto) 0.71 L (1.0-4.6) x10^3/uL Absolute Monos (auto) 0.38 (0.0-1.3) x10^3/uL Absolute Nucleated RBC 0.00 (0.00-0.01) x10^3u/L Lymphocytes % 6.3 L (24.0-44.0) % Monocytes % 3.4 (0.0-12.0) % Eosinophils % 0.1 (0.00-5.0) % Basophils % 0.1 (0.0-0.4) % Absolute Granulocytes 10.17 H (1.4-6.9) x10^3/uL Basophils # 0.01 (0-0.4) x10^3/uL Sodium 135 (135-145) mmol/L Potassium 4.5 (3.5-5.1) mmol/L Chloride 104 (98-107) mmol/L Carbon Dioxide 24 (22-30) mmol/L Anion Gap 11.8 (5-15) MEQ/L BUN 18 (9-20) mg/dL Creatinine 0.95 (0.66-1.25) mg/dL Estimated GFR 89.9 ML/MIN Glucose 139 H (74-106) mg/dL Hemoglobin A1c 5.56 (4.5-6.0) % Calcium 9.2 (8.4-10.2) mg/dL Total Bilirubin 0.40 (0.2-1.3) mg/dL AST 20 (17-59) U/L ALT 17 (0-50) U/L Alkaline Phosphatase 85 (38-126) U/L Serum Total Protein 6.8 (6.3-8.2) g/dL Albumin 4.0 (3.5-5.0) g/dL - Radiology Exams Ordered Rad Exams-Entire Visit: Radiology Procedures Category Date Time Status SMALL BOWEL FOLLOWING UGI Routine Exams 03/05/24 08:00 Completed UPPER GI W/AIR Routine Exams 03/05/24 08:00 Completed - Procedures and Test Procedures and Tests throughout Hospitalization: Therapy Orders & Screens 03/04/24 02:54 Smoking Cessation Education ONCE Comment: Diagnosis: bowel obstruction Smoking Status: Current every day smoker How long have you smoked: 45 years Have you smoked in the past 12 months: Yes Approximately how many cigarettes per day: 1 pack or slightly less Do you dip or chew tobacco: No 03/04/24 08:23 Respiratory Therapy Consult ONCE Comment: Reason For Exam: Diagnosis: bowel obstruction 03/04/24 09:15 Oxygen Nasal Cannula 2 lpm Comment: Diagnosis: bowel obstruction Discharge Exam General Appearance: no apparent distress Neurologic Exam: alert, oriented x 3, cooperative Eye Exam: PERRL Ears, Nose, Throat Exam: normal ENT inspection Neck Exam: normal inspection Respiratory Exam: wheezing Cardiovascular Exam: regular rate/rhythm, normal heart sounds Gastrointestinal/Abdomen Exam: soft, normal bowel sounds Male Genitalia Exam: deferred Rectal Exam: deferred Back Exam: normal inspection Extremity Exam: normal inspection Skin Exam: normal color Final Diagnosis/Problem List - Final Discharge Diagnosis/Problem (1) Acute intestinal obstruction Current Visit: Yes Status: Resolved Code(s): K56.609 - UNSP INTESTNL OBST, UNSP TO PARTIAL VERSUS COMPLETE OBST (2) Hyponatremia Current Visit: Yes Status: Resolved Code(s): E87.1 - HYPO-OSMOLALITY AND HYPONATREMIA (3) Leukocytosis Current Visit: Yes Status: Acute Code(s): D72.829 - ELEVATED WHITE BLOOD CELL COUNT, UNSPECIFIED (4) Mesenteric panniculitis Current Visit: Yes Status: Acute Code(s): K65.4 - SCLEROSING MESENTERITIS - Discharge Disposition: Home, Self-Care Condition: Stable Prescriptions: New Prednisone 20 mg [Deltasone 20 mg] 20 mg PO BID 5 Days #10 tablet Continue Tamsulosin HCl 0.4 mg [Flomax 0.4 MG] 0.8 mg PO HS Omeprazole Magnesium [Prilosec] 20 mg PO DAILY Folic Acid 1 mg PO HS Atorvastatin Calcium [Lipitor] 40 mg PO HS Meloxicam 15 mg [Meloxicam 15 MG] 15 mg PO DAILY Fexofenadine HCl [Sherri Allergy] 180 mg PO DAILY Lidocaine 1 each TP DAILY PRN PRN PRN Reason: Pain Calcium Polycarbophil 625 mg [Fibercon 625 mg] 625 mg PO DAILY Methotrexate Sodium 2.5 mg [Trexall 2.5 mg] 15 mg PO WEEKLY Loperamide HCl 2 mg [Imodium 2 mg] 2 mg PO DAILY PRN PRN PRN Reason: Diarrhea Gabapentin [Neurontin ] 300 mg PO BID Sertraline HCl 50 mg [Zoloft 50 mg Tablet] 50 mg PO DAILY buPROPion HCL [Wellbutrin Xl] 300 mg PO QAM Cyanocobalamin (Vitamin B-12) [Vitamin B12] 1,000 mcg PO DAILY Follow up with: DONY SHIELDS [ACTIVE STAFF] - [facility] [Primary Care Provider] -
[2024-03-06 16:32] VITALS: BP 119/59; PULSE 76; RESP 17; TEMP 97.9; O2SAT 92
[2024-03-06] MEDS ORDERED: ZOCOR 20MG PO SCH (22:00)
--- NOTE | 2024-03-08 10:13 | PROG NOTE ---
CONSULT DATE: 03/05/2024 HISTORY: This is a second day consultation of Bob Urbina formerly seen yesterday. He is well-known by myself. About eleven months ago, he had small bowel obstruction which addressed by an open surgical enterolysis possible resection by Dr. Delacruz. He had done great for eleven months and then he came in with right upper flank pain, some distention. Plain film and CT does show distal partial small bowel obstruction. He had small bowel follow through today. He did pass some gas through the night. He tolerated clear liquids. On physical examination, he had some mild distention but is fairly does not feel tight. IMPRESSION: I thought about an NG tube but his abdomen is not that tight. He did not want an NG tube. I think he has tried it in the past and it had been difficult. We will see how his barium goes as it will start coming out tomorrow. Given this was day two consult note #2, he was admitted to medical service.
--- NOTE | 2024-03-08 11:43 | CONS ---
CONSULT DATE: 03/06/2024 HISTORY: The patient was admitted to the hospital this is day #3 with small bowel obstruction. He did have a bowel movement last night. He did pass a little bit of barium. He did have a little bit of liquid stool today. He was moving around. He has been quiet in bed basically, kind of guarding his right upper quadrant and he is not doing that today. He said he had clear liquids last night. He is also passing gas. I will give him a regular diet and if he tolerates then he can go. IMPRESSION: Resolving small bowel obstruction. Will see him as an outpatient.
== END 2024-03-06 16:58 | disposition home or self-care (01) | DRG 389 ==
LOC: ED 21:45 → MED SURG 03-04 01:45 → OBSVTOIN 03-04 01:45
PROVIDERS: ADMIT Student in an Organized Health Care Education/Training Program; ATTEND Student in an Organized Health Care Education/Training Program
DX: K56.609 Unspecified intestinal obstruction, unspecified as to partial versus complete obstruction (principal); E87.1 Hypo-osmolality and hyponatremia; K65.4 Sclerosing mesenteritis; D72.829 Elevated white blood cell count, unspecified; Z79.899 Other long term (current) drug therapy; Z85.528 Personal history of other malignant neoplasm of kidney; I10 Essential (primary) hypertension; E78.5 Hyperlipidemia, unspecified; F17.200 Nicotine dependence, unspecified, uncomplicated
CPT/HCPCS: 36000; 36415; 71045; 74176; 74246; 74248; 80053; 81001; 83036; 83690; 84484; 85025; 94760; 96365; 96374; 96375; 96376; 99285; J2270; J2405; J2919; Q3014; A9270-GY

== ENCOUNTER 2025-06-23 10:30 | Day surgery (SDC) | payer OTHER ==
--- NOTE | 2025-06-20 11:26 | HP ---
HISTORY OF PRESENT ILLNESS: The patient is a 65-year-old male who presents with history of a small bowel obstruction. He did not require any surgery for that. It looks like he had a scope sometime ago. He had some polyps. He does present for colonoscopy at this time. PAST MEDICAL HISTORY: None reported. MEDICATIONS: No reported. PAST SURGICAL HISTORY: None recent. FAMILY HISTORY: None reported. ALLERGIES: Per chart. REVIEW OF SYSTEMS: CONSTITUTIONAL: Denies fever or chills. CHEST: Denies shortness of breath. CARDIOVASCULAR: Denies chest pain. ABDOMEN: Denies abdominal pain. PHYSICAL EXAMINATION: GENERAL: No acute distress. RESPIRATORY: Nonlabored. No shortness of breath. CARDIOVASCULAR: Regular rate and rhythm. ABDOMEN: Soft. ASSESSMENT: Recent bowel obstruction, history of polyps. PLAN: Colonoscopy with Dr. Jose Subramanian. This report was dictated for Dr. Subramanian by Ashlee Bauer NP.
[~2025-06-23 10:30] MED LIST: Lactated Ringers 1,000 ML IV SCH
== END 2025-06-23 10:41 | disposition home or self-care (01) ==
LOC: SDC 10:30
PROVIDERS: ATTEND Surgery
DX: Z53.8 Procedure and treatment not carried out for other reasons (principal)